=== PATIENT | male | born 1955 ===

== ENCOUNTER 2021-11-24 11:21 | Inpatient (IN) | payer MEDICARE ==
[2021-11-24] MEDS ORDERED: ASPIRIN 81 MG ONE (13:11)
[2021-11-24] MEDS ORDERED: SODIUM CHLORIDE 0.9% 1,000 ML IV ONE (13:30)
[2021-11-24] MEDS ORDERED: ASPIRIN 325 MG TAB PO STA (13:47)
[2021-11-24] MEDS ORDERED: NITROGLYCERIN SL TABS 0.4 MG TAB SUBLINGUAL PRN (13:47)
[2021-11-24 13:50] LABS: Glucose,Whole Blood 94 mg/dL (75-99)
[2021-11-24] MEDS ORDERED: hydrALAZINE HCL 20 MG/ML 1 ML VIAL IVP STA (14:03)
[2021-11-24] MEDS ORDERED: MORPHINE SULFATE 4 MG/ML SYRINGE ONE (14:06)
[2021-11-24] MEDS: MORPHINE SULFATE 2 MG/ML SYRINGE IVP PRN ×3 (14:11→22:32)
[2021-11-24] MEDS ORDERED: HEPARIN SODIUM 1,000 UN/ML (10ML VL) ONE (15:33)
[2021-11-24] MEDS ORDERED: fentaNYL (PF) 50 MCG/ML 2 ML AMP ONE (16:08)
[2021-11-24] MEDS: MIDAZOLAM 2 MG/2 ML VIAL IV ONE ×2 (16:32→16:57)
[2021-11-24] MEDS: fentaNYL (PF) 50 MCG/ML 2 ML AMP IV ONE ×2 (16:32→16:57)
[2021-11-24] MEDS: HEPARIN SODIUM 1,000 UN/ML (10ML VL) IV ONE ×3 (16:32→16:57)
[2021-11-24] MEDS ORDERED: TICAGRELOR 90 MG TAB ONE (16:37)
[2021-11-24] MEDS ORDERED: TICAGRELOR 90 MG TAB PO ONE (16:40)
[2021-11-24] MEDS: NITROGLYCERIN 1000MCG/10ML SYRINGE INTRACORON ONE ×3 (16:42→17:06)
[2021-11-24] MEDS ORDERED: IOPAMIDOL-370 125ML BTL INJ ONE (17:04)
[2021-11-24] MEDS ORDERED: IOPAMIDOL-370 100ML BTL INJ ONE (17:19)
[2021-11-24] MEDS ORDERED: RX INFO: IV CONTRAST WAS GIVEN 1 EACH MISC MISCELLANE PRN (18:48)
[2021-11-24] MEDS ORDERED: ZOLPIDEM 5 MG TAB PO PRN (18:48)
[2021-11-24] MEDS ORDERED: ATROPINE SULFATE 0.1 MG/ML 10ML SYRINGE IV PRN (18:48)
[2021-11-24] MEDS ORDERED: MAG HYDROX/AL HYDROX/SIMETH 30 ML CUP PO PRN (18:48)
[2021-11-24] MEDS ORDERED: ONDANSETRON 4 MG/2 ML VIAL IVP PRN (18:49)
[2021-11-24] MEDS: SODIUM CHLORIDE 0.9% 1,000 ML in EMPTY BAG 1 BAG IV SCH ×2 (18:50→22:11)
--- NOTE | 2021-11-24 19:02 | P.PRCINT ---
Percutaneous Coronary Int. - Percutaneous Coronary Intervention Percutaneous Coronary Intervention: PROCEDURES PERFORMED: Bilateral coronary angiography, PCI circumflex with a 2.75 x 15mm Xience RAMOS, PCI proximal RCA with 4.0 x 15mm Xience RAMOS, PCI mid to distal RCA with 4.0 x 12mm Xience RAMOS INDICATION: NSTEMI CONSENT:I have discussed the risks, benefits and alternative therapies for the above-mentioned procedure and for both sedation/analgesia as well as necessary blood product administration, if indicated, as they pertain to this patient. The patient has indicated understanding and acceptance of the risks and procedures discussed. PROCEDURE: After the risks, benefits and alternatives of the above mentioned procedure explained in detail with the patient, informed consent was obtained. Patient was taken to the catheterization lab and prepped and draped in usual fashion. 1A 6-[place] sheath had already been placed in the right femoral artery for the diagnostic procedure, see separate report. Heparin was given to maintain ACT > 250. A 6FR CLS 3.5 guide was used to engage the left main. A 0.014 BMW wire was advanced into the distal OM1. The lesion was pre dilated with a 2.0 x 12mm balloon. Next a 2.75 x 15mm Xience RAMOS was placed in the mid circumflex. The wire was removed and final angiograms were performed. Pre intervention there was a 85% circumflex stenosis and CINDA 3 flow and post intervention there was CINDA 3 flow with 0 % stenosis. Next the decision was made to perform PCI of the RCA. A 6FR AL 0.75 guide was used to engage the RCA. A 0.014 BMW wire was advanced into the distal RCA. The proximal and mid lesions were pre dilated with a 3.0 x 12mm balloon. Next a 4.0 x 12mm Xience RAMOS was placed in the mid to distal RCA. An additional 4.0 x 15mm Xience RAMOS was placed in the proximal RCA. There was more diffuse mild 20-30% proximal RCA stenosis felt best treated medically. The wire was removed and final angiograms were performed. Pre intervention there was a 80% proximal RCA and a mid to distal RCA 75% stenosis and CINDA 3 flow and post intervention there was CINDA 3 flow with 0 % stenosis. The right radial sheath was removed and a TR band was placed with hemostasis achieved. The patient tolerated the procedure well. Patient was transported back to the post catheterization holding area in stable condition. Conscious Sedation: Patient was monitored under the direct supervision of vision of myself for conscious sedation using Versed and fentanyl for a total duration of 45 minutes SELECTIVE CORONARY ARTERIOGRAPHY: LEFT MAIN: The left main is a large caliber vessel which bifurcates into the LAD and circumflex. There is no significant stenosis. LEFT ANTERIOR DESCENDING CORONARY ARTERY: LAD is a large caliber vessel which wraps around to the apex. There are mild luminal irregularities of the LAD. LEFT CIRCUMFLEX CORONARY ARTERY: Left circumflex is a moderate to large caliber vessel with mild luminal irregularities. Just before giving off a small caliber OM1 branch, the circumflex has a 85% stenosis. RIGHT CORONARY ARTERY: The right coronary artery is a large caliber vessel which gives off a PDA and PLV branch and is the dominant vessel. There is diffuse proximal RCA 20-30% stenosis then a more focal 80% proximal RCA stenosis and a mid to distal RCA 75% stenosis. Otherwise there is mild 20% RCA stenosis.. FINAL IMPRESSION: 1. CAD as described above with 85% mid circumflex stenosis and proximal RCA 80% and mid to distal RCA 75% stenosis. 2. S/p PCI circumflex with a 2.75 x 15mm Xience RAMOS, PCI proximal RCA with 4.0 x 15mm Xience RAMOS, PCI mid to distal RCA with 4.0 x 12mm Xience RAMOS PLAN: 1. Aggressive risk factor modification per most recent ACC/AHA guidelines. 2. Continue dual antiplatelets for 12 months with aspirin and Brillinta.
[2021-11-24] MEDS ORDERED: carvediloL 6.25 MG TAB PO STA (19:42)
[2021-11-24] MEDS ORDERED: TICAGRELOR 90 MG TAB PO STA (19:45)
[2021-11-24] MEDS ORDERED: GABAPENTIN 300 MG CAP PO PRN (19:47)
[2021-11-24 19:48] LABS: Glucose,Whole Blood 119 mg/dL (75-99)
[2021-11-24] MEDS ORDERED: METOPROLOL TARTRATE 50 MG TAB PO SCH (21:00)
[2021-11-24] MEDS: SODIUM CHLORIDE 0.9% 1,000 ML IV SCH (21:09)
[2021-11-24] MEDS: ATORVASTATIN 80 MG TAB PO SCH (21:10)
[2021-11-24] MEDS: INSULIN ASPART (NovoLOG) 100 UNIT/ML VIAL SQ SCH (21:10)
[2021-11-24] MEDS: HYDROcodone/APAP 5-325MG 1 EACH TAB PO PRN (22:17)
[2021-11-24] MEDS: LOSARTAN 50 MG TAB PO SCH (22:18)
[2021-11-25] MEDS: MORPHINE SULFATE 2 MG/ML SYRINGE IVP PRN ×2 (02:26→06:34)
[2021-11-25 05:44] LABS: Glucose,Whole Blood 134 mg/dL (75-99)
[2021-11-25] MEDS: carvediloL 6.25 MG TAB PO SCH ×2 (06:33→17:11)
[2021-11-25] MEDS: INSULIN ASPART (NovoLOG) 100 UNIT/ML VIAL SQ SCH ×4 (06:50→20:15)
[2021-11-25] MEDS: LOSARTAN 50 MG TAB PO SCH (07:45)
[2021-11-25] MEDS: ALPRAZolam 0.5 MG TAB PO PRN ×2 (07:47→20:21)
[2021-11-25] MEDS ORDERED: ATORVASTATIN 40 MG TAB PO SCH (09:00)
[2021-11-25] MEDS ORDERED: LOSARTAN 50 MG TAB PO SCH (09:00)
[2021-11-25 09:43] LABS: Basophils # (A) 0.1 k/uL (0-0.2); Basophils % (A) 1 %; Eosinophils # (A) 0.1 k/uL (0-0.7); Eosinophils % (A) 1 %; HCT 44.8 % (39.0-53.0); HGB 14.6 gm/dL (13.0-17.5); Lymphocytes # (A) 0.8 k/uL (1.0-4.8); Lymphocytes % (A) 7 %; MCH 28.9 pg (25.0-35.0); MCHC 32.5 g/dL (31.0-37.0); Mean Platelet Volume 7.2; Monocytes # (A) 0.7 k/uL (0-1.0); Monocytes % (A) 7 %; Neutrophils # (A) 8.9 k/uL (1.3-7.7); Neutrophils % (A) 83 %; Platelet Count 225 k/uL (150-450); RBC 5.03 m/uL (4.30-5.90); RDW 13.6 % (11.5-15.5); WBC 10.7 k/uL (3.8-10.6)
[2021-11-25 09:58] LABS: African American GFR (CKD) >90 (>60 ml/min/1.73 sqM); Anion Gap 7 mmol/L; Blood Urea Nitrogen 15 mg/dL (9-20); Calcium 8.8 mg/dL (8.4-10.2); Carbon Dioxide 22 mmol/L (22-30); Chloride 104 mmol/L (98-107); Glucose 174 mg/dL (74-99); Non-African American GFR(CKD) >90 (>60 ml/min/1.73 sqM); Sodium 133 mmol/L (137-145)
[2021-11-25 11:03] VITALS: BMI 43.2
--- NOTE | 2021-11-25 11:20 | XR ---
EXAMINATION TYPE: XR chest 1V DATE OF EXAM: 11/25/2021 COMPARISON: None INDICATION: Short of breath TECHNIQUE: Single frontal view of the chest is obtained. FINDINGS: The heart size is normal. The pulmonary vasculature is normal. No suspicious infiltrates evident. IMPRESSION: 1. No acute pulmonary process.
--- NOTE | 2021-11-25 11:22 | US ---
EXAMINATION TYPE: US lower ext pseudo artery RT DATE OF EXAM: 11/25/2021 COMPARISON: NONE CLINICAL HISTORY: rule ou retroperitoneal bleed. Heart cath x 2 days ago. Patient unable to tolerate pressure. Severe bruising at site. Patient has a femstop on. EXAM PERFORMED: Grayscale and color Doppler duplex imaging performed of the groin, post cardiac conrad ter to assess for pseudoaneurysm. SIDE PERFORMED: Right Color and Waveform Doppler performed to assess for the presence of pseudoaneurysm; Is there ultrasound evidence of a pseudoaneurysm: Possible PSA = 1.5 x 1.1 x 0.9 cm Is there a fluid collection present: Yes = 5.5 x 5.8 x 3.1 cm IMPRESSION: There is a hematoma, deep to the hematoma is small area measuring 9 x 15 mm is suspicious for pseudoa neurysm deep to the skin. CTA of the right groin may be of benefit.
[2021-11-25 11:35] LABS: Glucose,Whole Blood 155 mg/dL (75-99)
--- NOTE | 2021-11-25 13:20 | P.GSCN ---
History of Present Illness Consult date: 11/25/21 Reason for Consult: Pseudoaneurysm Requesting physician: Deandra Maciel History of present illness: This is 66-year-old male who had presented to [facility] yesterday for symptoms of shortness of breath and pressure on his chest. Past medical history includes diabetes mellitus, morbid obesity, hypertension, hyperlipidemia, heart murmur, former smoker, and lower extremity swelling. He was transferred to this facility for an STEMI and underwent cardiac catheterization with PCI and stenting. Patient was accessed through the right femoral artery. Apparently after the procedure through the night he developed a hematoma. He has pain to the right groin. His aspirin and [place] were held. He had a ultrasound of the right lower extremity to evaluate for pseudoaneurysm with findings of 9 x 15 mm pseudoaneurysm, reported as deep. Apparently interventional radiology did not believe that they could not treat with thrombin and vascular surgery was consulted. Hemoglobin stable at 14.6. Patient also mentions that he has been following with vascular surgeon Dr. Trever Meza and then Dr. Toribio for lower extremity edema. 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 He currently denies any abdominal pain or shortness of breath. He does complain of pain in the right groin. He is able to move bilateral lower extremities. Review of Systems 14 point review systems completed and all pertinent positives and negatives as stated in HPI Past Medical History Past Medical History: Diabetes Mellitus, Hyperlipidemia, Hypertension History of Any Multi-Drug Resistant Organisms: None Reported Past Surgical History: Cholecystectomy, Joint Replacement, Orthopedic Surgery Additional Past Surgical History / Comment(s): Double hip replacement Past Anesthesia/Blood Transfusion Reactions: No Reported Reaction Past Psychological History: No Psychological Hx Reported Smoking Status: Former smoker Past Alcohol Use History: None Reported Past Drug Use History: None Reported - Past Family History Father Additional Family Medical History / Comment(s): Parkinsons Mother Family Medical History: Diabetes Mellitus Medications and Allergies Home Medications Medication Instructions Recorded Confirmed Type Atorvastatin [Lipitor] 40 mg PO DAILY 11/24/21 11/24/21 History Dulaglutide [Trulicity] 0.75 mg SQ TH 11/24/21 11/24/21 History Gabapentin [Neurontin] 300 mg PO TID PRN 11/24/21 11/24/21 History Losartan Potassium 50 mg PO BID 11/24/21 11/24/21 History Metoprolol Tartrate [Lopressor] 50 mg PO BID 11/24/21 11/24/21 History Allergies Allergy/AdvReac Type Severity Reaction Status Date / Time No Known Allergies Allergy Verified 11/24/21 13:31 Surgical - Exam Vital Signs Temp Pulse Resp BP Pulse Ox 98.4 F 60 18 224/87 98 11/24/21 13:37 11/24/21 13:37 11/24/21 13:37 11/24/21 13:37 11/24/21 13:37 General appearance: The patient is alert, oriented, appears in no acute distress. Morbidly obese. HET: Head is normocephalic and atraumatic. Pupils are equal and reactive. Neck: Supple without lymphadenopathy. Trachea midline. No audible carotid bruit. Heart: S1 S2. Regular rate and rhythm. Systolic murmur. Lungs: Clear to auscultation bilaterally. Abdomen: Soft, morbidly obese, tenderness left lower quadrant, nondistended. Extremities: Normal skin color and turgor. Bilateral lower extremity edema. Right groin with hematoma and ecchymosis. Palpable bilateral dorsalis pedis pulses. Neurological: No focal deficits. Strength and sensation are grossly intact. Results - Labs 11/25/21 09:15 11/25/21 09:15 Abnormal Lab Results - Last 24 Hours (Table) 11/24/21 11/25/21 11/25/21 Range/Units 19:46 05:41 09:15 WBC 10.7 H (3.8-10.6) k/uL Neutrophils # 8.9 H (1.3-7.7) k/uL Lymphocytes # 0.8 L (1.0-4.8) k/uL Sodium (137-145) mmol/L Glucose (74-99) mg/dL POC Glucose (mg/dL) 119 H 134 H (75-99) mg/dL 11/25/21 11/25/21 Range/Units 09:15 11:33 WBC (3.8-10.6) k/uL Neutrophils # (1.3-7.7) k/uL Lymphocytes # (1.0-4.8) k/uL Sodium 133 L (137-145) mmol/L Glucose 174 H (74-99) mg/dL POC Glucose (mg/dL) 155 H (75-99) mg/dL Diabetes panel 11/25/21 Range/Units 09:15 Sodium 133 L (137-145) mmol/L Potassium 4.0 (3.5-5.1) mmol/L Chloride 104 (98-107) mmol/L Carbon Dioxide 22 (22-30) mmol/L BUN 15 (9-20) mg/dL Creatinine 0.82 (0.66-1.25) mg/dL Glucose 174 H (74-99) mg/dL Calcium 8.8 (8.4-10.2) mg/dL Calcium panel 11/25/21 Range/Units 09:15 Calcium 8.8 (8.4-10.2) mg/dL Pituitary panel 11/25/21 Range/Units 09:15 Sodium 133 L (137-145) mmol/L Potassium 4.0 (3.5-5.1) mmol/L Chloride 104 (98-107) mmol/L Carbon Dioxide 22 (22-30) mmol/L BUN 15 (9-20) mg/dL Creatinine 0.82 (0.66-1.25) mg/dL Glucose 174 H (74-99) mg/dL Calcium 8.8 (8.4-10.2) mg/dL Adrenal panel 11/25/21 Range/Units 09:15 Sodium 133 L (137-145) mmol/L Potassium 4.0 (3.5-5.1) mmol/L Chloride 104 (98-107) mmol/L Carbon Dioxide 22 (22-30) mmol/L BUN 15 (9-20) mg/dL Creatinine 0.82 (0.66-1.25) mg/dL Glucose 174 H (74-99) mg/dL Calcium 8.8 (8.4-10.2) mg/dL - Imaging Comments: Ultrasound right lower extremity pseudo artery: Hematoma, deep to the hematoma a small area 9 x 15 mm suspicious for pseudoaneurysm deep to the skin. CTA of right groin may be of benefit. Chest x-ray: report reviewed Assessment and Plan Assessment: 1. Pseudoaneurysm right femoral artery measuring 9 x 15 mm status post cardiac catheterization with recent PCI and stenting 2. NSTEMI 3. Morbid obesity 4. Diabetes mellitus 5. Hypertension 6. Hyperlipidemia 7. Former smoker Plan: 1. Hold aspirin and Brilinta 2. Apply pressure dressing to right groin 3. Repeat CBC tomorrow 4. Repeat lower extremity arterial ultrasound tomorrow 4. Further recommendations forthcoming per vascular surgeon Thank you for this consultation. The impression and plan of care has been dictated as directed. Dr. Dillon I performed a history and examination of this patient, discussed the same with the dictator. I agree with the dictator's note ,documented as a scribe. Any additional findings or plans will be noted.
[2021-11-25] MEDS: ASPIRIN 81 MG PO SCH (14:48)
[2021-11-25] MEDS: TICAGRELOR 90 MG TAB PO SCH ×2 (14:49→20:09)
--- NOTE | 2021-11-25 16:53 | P.PN ---
Subjective Progress Note Date: 11/25/21 This is a 66-year-old gentleman who was admitted to [facility] with unstable angina. Patient had a cardiac catheterization and was found to have significant 2 vessel disease. Patient had stent placement of the circumflex and also RCA by Dr. Mendenhall. Apparently last night patient started having hematoma in the right groin. Local pressure and FemoStop was applied. This morning the groin appeared to be relatively soft with underlying hematoma. Ultrasound of the groin revealed evidence of possible pseudoaneurysm. A surgical consult was obtained. At this point they recommended continued monitoring and if necessary for seizure to be done tomorrow. Requested to stop Brillinta until tomorrow and continue aspirin only. He denies any chest pain or shortness of breath but does complain of pain in the right groin. Hemoglobin is stable. Did complain of some shortness of breath but chest x-ray do not show no acute changes and his BNP is within normal limits. We'll continue to monitor vital signs. Further recommendations depend upon the clinical course Objective - Vital Signs Vital signs: Vital Signs Temp 97.9 F 11/25/21 03:14 Pulse 67 11/25/21 14:53 Resp 16 11/25/21 14:53 BP 119/71 11/25/21 14:53 Pulse Ox 97 11/25/21 14:53 FiO2 Intake & Output 11/24/21 11/25/21 11/25/21 18:59 06:59 18:59 Intake Total 500 600 Output Total 2200 900 450 Balance -1700 -900 150 Weight 148.778 kg 148.778 kg Intake: IV 500 Oral 600 Output: Urine 2200 900 450 Uretheral (Dillon) 800 Other: Voiding Method Indwelling Catheter Indwelling Catheter - Exam GENERAL EXAM: Patient is alert and oriented and doesn't appear to be in any acute distress HEENT: Normocephalic. Normal reaction of pupils, equal size, normal range of extraocular motion. No erythema or exudates in the throat. NECK: No masses, no nuchal rigidity. CHEST: No chest wall deformity. LUNGS: Equal air entry with no crackles or wheeze. HEART: S1 and S2 normal with no audible mumurs or gallops. Regular rhythm, femorals equal on both sides.. ABDOMEN: No hepatosplenomegaly, normal bowel sounds, no guarding or rigidity. SKIN: No rashes CENTRAL NERVOUS SYSTEM: No focal deficits. EXTREMITIES: No cyanosis, clubbing or edema. There is hematoma in the right groin - Labs CBC & Chem 7: 11/25/21 09:15 11/25/21 09:15 Labs: Abnormal Lab Results - Last 24 Hours (Table) 11/24/21 11/25/21 11/25/21 Range/Units 19:46 05:41 09:15 WBC 10.7 H (3.8-10.6) k/uL Neutrophils # 8.9 H (1.3-7.7) k/uL Lymphocytes # 0.8 L (1.0-4.8) k/uL Sodium (137-145) mmol/L Glucose (74-99) mg/dL POC Glucose (mg/dL) 119 H 134 H (75-99) mg/dL 11/25/21 11/25/21 Range/Units 09:15 11:33 WBC (3.8-10.6) k/uL Neutrophils # (1.3-7.7) k/uL Lymphocytes # (1.0-4.8) k/uL Sodium 133 L (137-145) mmol/L Glucose 174 H (74-99) mg/dL POC Glucose (mg/dL) 155 H (75-99) mg/dL Assessment and Plan (1) Hematoma Current Visit: Yes Status: Acute Code(s): T14.8XXA - OTHER INJURY OF UNSPECIFIED BODY REGION, INITIAL ENCOUNTER SNOMED Code(s): 867722629 (2) STEMI (ST elevation myocardial infarction) Current Visit: Yes Status: Acute Code(s): I21.3 - ST ELEVATION (STEMI) MYOCARDIAL INFARCTION OF UNSP SITE SNOMED Code(s): 85845699 (3) Pseudoaneurysm Current Visit: Yes Status: Acute Code(s): I72.9 - ANEURYSM OF UNSPECIFIED SITE SNOMED Code(s): 395831411 (4) S/P coronary artery stent placement Current Visit: Yes Status: Acute Code(s): Z95.5 - PRESENCE OF CORONARY ANGIOPLASTY IMPLANT AND GRAFT SNOMED Code(s): 061372104 Plan: Continue current medical therapy. Hold brillinta as per the request of the vascular surgical team. Continue rest of the medication.
[2021-11-25 16:58] LABS: Glucose,Whole Blood 130 mg/dL (75-99)
--- NOTE | 2021-11-25 17:40 | HP ---
HISTORY AND PHYSICAL This 66-year-old white male came to the [facility] due to shortness of breath and chest pressure. He was found to have diastolic heart failure and non-STEMI with aortic stenosis and regurgitation. He had a cardiac catheterization, transferred over to [facility], which he had today. He has possibly an aneurysm, pseudoaneurysm 9 x 15 mm, of the right lower extremity. Apparently Vascular Surgery has been consulted for this. Hemoglobin is stable. PAST MEDICAL HISTORY: CHF, diabetes, hypertension, non-STEMI, PAST SURGICAL HISTORY: Cholecystectomy, joint replacement, orthopedic surgeries. FAMILY HISTORY: Mother with diabetes mellitus. HOME MEDICINES: Home medicines include Lipitor 40 daily, Trulicity 0.75 once a week, Neurontin 300 t.i.d., losartan 50 daily, Lopressor 50 b.i.d. ALLERGIES: NO KNOWN DRUG ALLERGIES. PHYSICAL EXAMINATION: VITAL SIGNS: Pulse ox 98. Blood pressure on admission here was 220s over 80s, respiratory rate 18 to 20, temperature 98.4, pulse 60. GENERAL APPEARANCE: Overweight white male in no acute distress. Cardiovascular S1, S2. Lungs with scattered wheeze. Abdomen distended with obesity. Extremities with 2+ edema. Stasis changes in the legs. Normal dorsalis pedis, posterior tibial and radial pulses. Psych fair mood and affect. Neurologic alert and oriented x3. Labs are all reviewed. ASSESSMENT: 1. Status post heart catheterization with stenting from a [id number] myocardial infarction. 2. Acute on chronic diastolic heart failure from [id number] myocardial infarction with a pseudoaneurysm in the right femoral artery postoperatively of PCI with stenting. 3. Diabetes mellitus. 4. Hypertension. 5. Obesity. 6. Former smoker. They took him off aspirin and Brilinta, applied pressure to the right groin. Repeat CBC in the morning. Repeat an ultrasound of the aneurysm in the morning. Prognosis is guarded. Continue standard cardiac care. MMODL / IJN: [id number] /
--- NOTE | 2021-11-25 19:41 | P.PN ---
Progress Note - Text Patient seen and examined 11/25. Right femoral hematoma appears stable and pain controlled per patient. No bruit or thrill on exam. US reviewed with questionable pseudoaneurysm and appears small. Likely will seal off on it's own if truly is a pseudoaneurysm however does not appear typical of a pseudoaneurysm on ultrasound and not good area for thrombin injection. Discussed with vascular surgery regarding increased risks of stent thrombosis early after stent placement with discontinuation of antiplatelets and therefore will continue with aspirin and Brillinta. If repair needs to be performed would consider endovascular balloon tamponade or coil before open surgery if antiplatelets discontinuation considered. Continue to monitor. Corky Mendenhall, DO
[2021-11-25] MEDS: ATORVASTATIN 80 MG TAB PO SCH (20:10)
[2021-11-25] MEDS: SODIUM CHLORIDE 0.9% 1,000 ML IV SCH (20:10)
[2021-11-25 20:14] LABS: Glucose,Whole Blood 117 mg/dL (75-99)
[2021-11-25] MEDS: HYDROcodone/APAP 5-325MG 1 EACH TAB PO PRN (23:38)
[2021-11-26 06:05] LABS: Glucose,Whole Blood 125 mg/dL (75-99)
[2021-11-26] MEDS: carvediloL 6.25 MG TAB PO SCH ×2 (06:16→17:09)
[2021-11-26] MEDS: INSULIN ASPART (NovoLOG) 100 UNIT/ML VIAL SQ SCH ×4 (06:19→21:02)
[2021-11-26] MEDS: ASPIRIN 81 MG PO SCH (09:08)
[2021-11-26] MEDS: ALPRAZolam 0.25 MG TAB PO PRN ×2 (09:08→21:02)
[2021-11-26] MEDS: TICAGRELOR 90 MG TAB PO SCH ×2 (09:08→21:02)
[2021-11-26] MEDS: LOSARTAN 50 MG TAB PO SCH (09:09)
--- NOTE | 2021-11-26 10:05 | P.PN ---
Subjective Progress Note Date: 11/26/21 Principal diagnosis: Pseudoaneurysm Patient is seen and examined as a follow-up for right femoral artery pseudoaneurysm status post heart catheterization, PCI with stenting. It was recommended to hold Brilinta, however cardiology felt the [place] need to be given. Repeat arterial ultrasound ordered, however pending. CBC currently pending. Patient states he still has some groin discomfort. He denies any abdominal pain, nausea, vomiting, shortness of breath or chest pain. He's been afebrile. Objective - Vital Signs Vital signs: Vital Signs Temp 98.1 F 11/26/21 09:00 Pulse 68 11/26/21 09:00 Resp 18 11/26/21 09:00 BP 149/82 11/26/21 09:00 Pulse Ox 95 11/26/21 09:00 FiO2 Intake & Output 11/25/21 11/26/21 11/26/21 18:59 06:59 18:59 Intake Total 840 120 Output Total 450 400 650 Balance 390 -400 -530 Weight 148.778 kg Intake: Oral 840 120 Output: Urine 450 400 650 Uretheral (Dillon) 400 Other: Voiding Method Indwelling Catheter Indwelling Catheter - Exam General appearance: The patient is alert, oriented, appears in no acute distress. Morbidly obese. HET: Head is normocephalic and atraumatic. Pupils are equal and reactive. Neck: Supple without lymphadenopathy. Trachea midline. No audible carotid bruit. Heart: S1 S2. Regular rate and rhythm. Lungs: Clear to auscultation bilaterally. Abdomen: Soft, nontender, nondistended. Extremities: Normal skin color and turgor. Bilateral lower extremity edema. Palpable pedal pulses bilaterally. Right groin with pressure dressing in place. Neurological: No focal deficits. Strength and sensation are grossly intact. - Labs CBC & Chem 7: 11/25/21 09:15 11/25/21 09:15 Labs: Abnormal Lab Results - Last 24 Hours (Table) 11/25/21 11/25/21 11/25/21 Range/Units 11:33 16:56 20:12 POC Glucose (mg/dL) 155 H 130 H 117 H (75-99) mg/dL 11/26/21 Range/Units 06:04 POC Glucose (mg/dL) 125 H (75-99) mg/dL Assessment and Plan Assessment: 1. Pseudoaneurysm right femoral artery measuring 9 x 15 mm status post cardiac catheterization with recent PCI and stenting 2. NSTEMI 3. Morbid obesity 4. Diabetes mellitus 5. Hypertension 6. Hyperlipidemia 7. Former smoker Plan: 1. Recommended to hold aspirin and Brilinta until repeat ultrasound 2. Continue pressure dressing to right groin 3. Repeat CBC pending 4. Discontinue [place] catheter 5. Repeat lower extremity arterial ultrasound reported as no change in pseudoaneurysm 5. We'll continue to monitor, no plans on surgical intervention at this time. Patient is cleared for discharge from vascular surgical services. Follow-up in 1-2 weeks. 6. Patient may get up and ambulate Thank you for this consultation. The impression and plan of care has been dictated as directed. Dr. [place] I performed a history and examination of this patient, discussed the same with the dictator. I agree with the dictator's note ,documented as a scribe. Any additional findings or plans will be noted.
--- NOTE | 2021-11-26 14:42 | P.PN ---
Subjective Progress Note Date: 11/26/21 HISTORY OF PRESENT ILLNESS: This is a 66-year-old gentleman who was admitted to [facility] with unstable angina. Patient had a cardiac catheterization and was found to have significant 2 vessel disease. Patient had stent placement of the circumflex and also RCA by Dr. Mendenhall. Apparently last night patient started having hematoma in the right groin. Local pressure and FemoStop was applied. This morning the groin appeared to be relatively soft with underlying hematoma. Ultrasound of the groin revealed evidence of possible pseudoaneurysm. A surgical consult was obtained. At this point they recommended continued monitoring and if necessary for seizure to be done tomorrow. Requested to stop Brillinta until tomorrow and continue aspirin only. He denies any chest pain or shortness of breath but does complain of pain in the right groin. Hemoglobin is stable. Did complain of some shortness of breath but chest x-ray do not show no acute changes and his BNP is within normal limits. We'll continue to monitor vital signs. Further recommendations depend upon the clinical course Progress Note - Text Patient seen and examined 11/25. Right femoral hematoma appears stable and pain controlled per patient. No bruit or thrill on exam. US reviewed with questionable pseudoaneurysm and appears small. Likely will seal off on it's own if truly is a pseudoaneurysm however does not appear typical of a pseudoaneurysm on ultrasound and not good area for thrombin injection. Discussed with vascular surgery regarding increased risks of stent thrombosis early after stent placement with discontinuation of antiplatelets and therefore will continue with aspirin and Brillinta. If repair needs to be performed would consider en dovascular balloon tamponade or coil before open surgery if antiplatelets discontinuation considered. Continue to monitor. Corky Mendenhall DO 11/26/2021 Patient examined this morning at the bedside. Patient denies chest pain or pressure. He denies shortness of breath. Patient denies any further discomfort to his right groin. Vascular surgery has been consulted for evaluation. PHYSICAL EXAM: VITAL SIGNS: Reviewed. GENERAL: Well-developed in no acute distress. NECK: Supple. No JVD or thyromegaly LUNGS: Respirations even and unlabored. Lungs essentially clear to auscultation bilaterally. HEART: Regular rate and rhythm. S1 and S2 heard. EXTREMITIES: Normal range of motion. No clubbing or cyanosis. Peripheral pulses intact. No lower extremity edema ASSESSMENT: Non-STEMI, status post PCI to RCA and circumflex Pseudoaneurysm right femoral artery Hypertension Hyperlipidemia Diabetes Former nicotine dependence PLAN: Continue current cardiac medications Vascular surgery consulted and evaluated patient. No surgical intervention at this time Continue to monitor right groin Further recommendations pending patient's course Nurse practitioner note has been reviewed by physician. Signing provider agrees with the documented findings, assessment, and plan of care. Objective - Vital Signs Vital signs: Vital Signs Temp 98.1 F 11/26/21 09:00 Pulse 68 11/26/21 09:00 Resp 18 11/26/21 09:00 BP 149/82 11/26/21 09:00 Pulse Ox 95 11/26/21 09:00 FiO2 Intake & Output 11/25/21 11/26/21 11/26/21 18:59 06:59 18:59 Intake Total 840 120 Output Total 450 400 650 Balance 390 -400 -530 Weight 148.778 kg Intake: Oral 840 120 Output: Urine 450 400 650 Uretheral (Dillon) 400 Other: Voiding Method Indwelling Catheter Indwelling Catheter Toilet - Labs CBC & Chem 7: 11/25/21 09:15 11/25/21 09:15 Labs: Abnormal Lab Results - Last 24 Hours (Table) 11/25/21 11/25/21 11/25/21 Range/Units 11:33 16:56 20:12 POC Glucose (mg/dL) 155 H 130 H 117 H (75-99) mg/dL 11/26/21 Range/Units 06:04 POC Glucose (mg/dL) 125 H (75-99) mg/dL
--- NOTE | 2021-11-26 14:43 | US ---
EXAMINATION TYPE: US lower ext pseudo artery RT DATE OF EXAM: 11/26/2021 COMPARISON: NONE CLINICAL HISTORY: re-evaluate pseudoaneurysm. Post catheterization. Swelling. EXAM PERFORMED: Grayscale and color Doppler duplex imaging performed of the groin, post cardiac conrad ter to assess for pseudoaneurysm. SIDE PERFORMED: right Color and Waveform Doppler performed to assess for the presence of pseudoaneurysm; There is a hematoma sitting superior to vessels measuring 4.7 x 2.5 x 6.9cm Patient was wearing pressure bandage since previous exam. Superior area of questionable psuedo does not show flow today. Inferior to this is a possible psuedo vs stenosis in EVAPORATOR and DFV causing artifact between vessels. IMPRESSION: Area of possible pseudoaneurysm seen on prior exam the right groin is not to show flow today on color Doppler. Persistent groin hematoma.
[2021-11-26 14:52] LABS: Glucose,Whole Blood 117 mg/dL (75-99)
[2021-11-26 16:30] LABS: Glucose,Whole Blood 114 mg/dL (75-99)
[2021-11-26] MEDS: DOCUSATE 100 MG CAP PO SCH (17:09)
--- NOTE | 2021-11-26 20:20 | PN ---
PROGRESS NOTE This 66-year-old white male came in with unstable angina, status post stenting of the two arteries in the right coronary artery. He stopped his and aspirin secondary to a pseudoaneurysm, at which time tomorrow Brilinta will be restarted prior to going home. Cardiovascular S1-S2. Lungs clear. GI soft. Ultrasound shows a questionable pseudoaneurysm; appears small. Likely will on its own. Increasing risk of stent stenosis after stent placement with this continuation of antiplatelets. Continue with aspirin, Brilinta. Possible endovascular balloon tamponade if pseudoaneurysm does not resolve. Wait for vascular recommendations. He is alert and oriented x3. Vital signs reviewed. Cardiovascular S1-S2. Hematology negative Homans. Psych fair mood and affect. ASSESSMENT: 1. Status post moderate aortic stenosis. 2. Moderate aortic regurgitation. 3. Percutaneous transluminal coronary angioplasty, right coronary artery. 4. Coronary artery disease. 5. Morbid obesity. 6. Diabetes mellitus. 7. Hypertension. 8. Dyslipidemia. 9. Former smoker. Continue to hold aspirin, Brilinta. Continue pressure on the right groin. Discontinue Dillon. Repeat CBC. No plans for surgical intervention. Cleared for discharge from vascular services. Possibly will go home. MMODL / IJN: [id number] /
[2021-11-26 20:43] LABS: Glucose,Whole Blood 157 mg/dL (75-99)
[2021-11-26 21:02] LABS: HCT 40.2 % (39.0-53.0); MCH 29.2 pg (25.0-35.0); MCHC 32.4 g/dL (31.0-37.0); MCV 90.2 fL (80.0-100.0); Mean Platelet Volume 7.2; Platelet Count 222 k/uL (150-450); RBC 4.45 m/uL (4.30-5.90); RDW 14.2 % (11.5-15.5)
[2021-11-26] MEDS: ATORVASTATIN 80 MG TAB PO SCH (21:02)
[2021-11-26] MEDS: SODIUM CHLORIDE 0.9% 1,000 ML IV SCH (21:05)
[2021-11-27 00:34] VITALS: TEMP 97.9
[2021-11-27 05:41] LABS: Glucose,Whole Blood 133 mg/dL (75-99)
[2021-11-27] MEDS: carvediloL 6.25 MG TAB PO SCH (06:56)
[2021-11-27] MEDS: INSULIN ASPART (NovoLOG) 100 UNIT/ML VIAL SQ SCH (06:56)
--- NOTE | 2021-11-27 07:31 | CDI ---
Documentation Clarification Form Date: 11/26/2021 01:35:00 PM From: Louise Anand CCS, CCDS Admit Date: 11/24/2021 05:50:00 PM Patient Name: Angel Hsieh Visit Number: [id number] Discharge Date: ATTENTION: The Clinical Documentation Specialists (CDI) and [facility] Coding Staff appreciate your assistance in clarifying documentation. Please respond to the clarification below the line at the bottom and electronically sign. The CDI & [facility] Coding staff will review the response and follow-up if needed. Please note: Queries are made part of the Legal Health Record. If you have any questions, please contact the author of this message via ITS. Dr. Corky Mendenhall: The patient has a possible pseudoaneurysm and/or hematoma documented in the 11/25 Cardiology Progress Notes, status post a Heart Catheterization and PTCA with Stenting on 11/24 for a NSTEMI. Vascular Surgery was consulted on 11/25: Pseudoaneurysm right femoral artery measuring 9 x 15 mm status post cardiac catheterization with recent PCI and stenting Additional clarification is requested regarding the relationship, if any, that exists between the diagnosis of pseudoaneurysm and/or hematoma and the procedure. Patients Admitting Diagnosis Per the 11/24 PCI Note: CAD with 85% mid circumflex stenosis and proximal RCA 80% and mi to distal RCA 75% stenosis. Post-Operative Diagnosis: Same Procedure performed: Bilateral coronary angiography, PCI circumflex with a 2.75 x 15mm Xience RAMOS, PCI proximal RCA with 4.0 x 15mm Xience RAMOS, PCI mid to distal RCA with 4.0 x 12mm Xience RAMOS. History/Risk Factors per the 11/25 H/P: DM II, Hypertension, Hyperlipidemia, Obesity, Former smoker. Clinical Indicators: Presented to [facility] for PCI status post a Heart Catheterization at [facility], diagnosed with NSTEMI. Admit with same status post PCI with stenting. 11/25 Hemoglobin 14.6, Hematocrit 44.8 Treatment per Vascular Surgery Consult 11/25: Hold Aspirin & Brillinta, Apply pressure dressing to right groin, Repeat CBC tomorrow, Repeat lower extremity arterial US tomorrow. What relationship, if any, exists between the diagnosis of pseudoaneurysm and/or hematoma and the procedure: [ X ] Pseudoaneurysm an/or Hematoma is a complication of surgical procedure [ ] Pseudoaneurysm an/or Hematoma is an expected outcome of the surgical procedure [ ] Pseudoaneurysm an/or Hematoma is related to the patients co-morbid condition(s), please specify: and is not a complication of the procedure [ ] Other please specify: [ ] Unable to determine (Template Last Revised: September 2020) MTDD
[2021-11-27] MEDS: LOSARTAN 50 MG TAB PO SCH (09:15)
[2021-11-27] MEDS: DOCUSATE 100 MG CAP PO SCH (09:15)
[2021-11-27] MEDS: ASPIRIN 81 MG PO SCH (09:15)
[2021-11-27] MEDS: TICAGRELOR 90 MG TAB PO SCH (09:15)
--- NOTE | 2021-11-27 09:50 | P.PN ---
Subjective Progress Note Date: 11/27/21 HISTORY OF PRESENT ILLNESS: This is a 66-year-old gentleman who was admitted to [facility] with unstable angina. Patient had a cardiac catheterization and was found to have significant 2 vessel disease. Patient had stent placement of the circumflex and also RCA by Dr. Mendenhall. Apparently last night patient started having hematoma in the right groin. Local pressure and FemoStop was applied. This morning the groin appeared to be relatively soft with underlying hematoma. Ultrasound of the groin revealed evidence of possible pseudoaneurysm. A surgical consult was obtained. At this point they recommended continued monitoring and if necessary for seizure to be done tomorrow. Requested to stop Brillinta until tomorrow and continue aspirin only. He denies any chest pain or shortness of breath but does complain of pain in the right groin. Hemoglobin is stable. Did complain of some shortness of breath but chest x-ray do not show no acute changes and his BNP is within normal limits. We'll continue to monitor vital signs. Further recommendations depend upon the clinical course Progress Note - Text Patient seen and examined 11/25. Right femoral hematoma appears stable and pain controlled per patient. No bruit or thrill on exam. US reviewed with questionable pseudoaneurysm and appears small. Likely will seal off on it's own if truly is a pseudoaneurysm however does not appear typical of a pseudoaneurysm on ultrasound and not good area for thrombin injection. Discussed with vascular surgery regarding increased risks of stent thrombosis early after stent placement with discontinuation of antiplatelets and therefore will continue with aspirin and Brillinta. If repair needs to be performed would consider en dovascular balloon tamponade or coil before open surgery if antiplatelets discontinuation considered. Continue to monitor. Corky Mendenhall, 11/26/2021 Patient examined this morning at the bedside. Patient denies chest pain or pressure. He denies shortness of breath. Patient denies any further discomfort to his right groin. Vascular surgery has been consulted for evaluation. 11/27/2021 Patient examined this morning. Patient is sitting up in the chair. Patient denies chest pain or pressure. He denies shortness of breath. He is anxious to be discharged home today. PHYSICAL EXAM: VITAL SIGNS: Reviewed. GENERAL: Well-developed in no acute distress. NECK: Supple. No JVD or thyromegaly LUNGS: Respirations even and unlabored. Lungs essentially clear to auscultation bilaterally. HEART: Regular rate and rhythm. S1 and S2 heard. EXTREMITIES: Normal range of motion. No clubbing or cyanosis. Peripheral pulses intact. No lower extremity edema ASSESSMENT: Non-STEMI, status post PCI to RCA and circumflex Pseudoaneurysm right femoral artery Hypertension Hyperlipidemia Diabetes Former nicotine dependence PLAN: Continue current cardiac medications Patient is stable for discharge home today with outpatient follow-up Nurse practitioner note has been reviewed by physician. Signing provider agrees with the documented findings, assessment, and plan of care. Objective - Vital Signs Vital signs: Vital Signs Temp 97.9 F 11/27/21 03:34 Pulse 83 11/27/21 03:34 Resp 16 11/27/21 03:34 BP 174/68 11/27/21 03:34 Pulse Ox 95 11/27/21 03:34 FiO2 Intake & Output 11/26/21 11/27/21 11/27/21 18:59 06:59 18:59 Intake Total 900 Output Total 650 Balance 250 Intake: Oral 900 Output: Urine 650 Uretheral (Dillon) 400 Other: Voiding Method Toilet Toilet # Voids 2 2 - Labs CBC & Chem 7: 11/26/21 20:17 11/25/21 09:15 Labs: Abnormal Lab Results - Last 24 Hours (Table) 11/26/21 11/26/21 11/26/21 Range/Units 11:53 11:53 16:28 WBC (3.8-10.6) k/uL POC Glucose (mg/dL) 117 H 117 H 114 H (75-99) mg/dL 11/26/21 11/26/21 11/27/21 Range/Units 20:17 20:37 05:37 WBC 12.0 H (3.8-10.6) k/uL POC Glucose (mg/dL) 157 H 133 H (75-99) mg/dL
--- NOTE | 2021-11-27 10:37 | P.PN ---
Subjective Progress Note Date: 11/27/21 Patient seen and examined. No complaints. Ready to go home, pain is controlled Objective - Vital Signs Vital signs: Vital Signs Temp 97.9 F 11/27/21 03:34 Pulse 83 11/27/21 03:34 Resp 16 11/27/21 03:34 BP 174/68 11/27/21 03:34 Pulse Ox 95 11/27/21 03:34 FiO2 Intake & Output 11/26/21 11/27/21 11/27/21 18:59 06:59 18:59 Intake Total 900 Output Total 650 Balance 250 Intake: Oral 900 Output: Urine 650 Uretheral (Dillon) 400 Other: Voiding Method Toilet Toilet # Voids 2 2 - Exam General appearance: The patient is alert, oriented, appears in no acute distress. Morbidly obese. HET: Head is normocephalic and atraumatic. Pupils are equal and reactive. Neck: Supple without lymphadenopathy. Trachea midline. No audible carotid bruit. Heart: S1 S2. Regular rate and rhythm. Lungs: Clear to auscultation bilaterally. Abdomen: Soft, nontender, nondistended. Extremities: Normal skin color and turgor. Bilateral lower extremity edema. Palpable pedal pulses bilaterally. Right groin with pressure dressing in place. Neurological: No focal deficits. Strength and sensation are grossly intact. - Labs CBC & Chem 7: 11/26/21 20:17 11/25/21 09:15 Labs: Abnormal Lab Results - Last 24 Hours (Table) 11/26/21 11/26/21 11/26/21 Range/Units 11:53 11:53 16:28 WBC (3.8-10.6) k/uL POC Glucose (mg/dL) 117 H 117 H 114 H (75-99) mg/dL 11/26/21 11/26/21 11/27/21 Range/Units 20:17 20:37 05:37 WBC 12.0 H (3.8-10.6) k/uL POC Glucose (mg/dL) 157 H 133 H (75-99) mg/dL Assessment and Plan Assessment: 1. 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 NSTEMI 3. Morbid obesity 4. Diabetes mellitus 5. Hypertension 6. Hyperlipidemia 7. Former smoker Plan: Plan: Patient is cleared for discharge from vascular surgical services. The PSA is small in size and has potential to thrombose on its own accord. This is all discussed with the patient. He is educated that if he should have any worsening groin pain or issues to immediately present to the ER. He seemingly understands and is willing to proceed Follow-up in 1 week.
[2021-11-27 11:16] VITALS: BP 123/70; PULSE 68; RESP 18
[2021-11-27 11:59] LABS: Glucose,Whole Blood 106 mg/dL (75-99)
--- NOTE | 2021-12-02 09:48 | P.DS ---
Providers Date of admission: 11/24/21 17:50 Expected date of discharge: 11/27/21 Attending physician: Joshua Carter Consults: 11/24/21 18:48 Consult Physician Routine Consulting Provider: [facility] Consult Reason/Comments: Post Interventional patient Do you want consulting provider notified?: Already Contacted Primary care physician: Joshua Sellersinivan [facility] Course: Final diagnosis Small right STRAP BUCKLER PSA NSTEMI Status post moderate aortic stenosis Moderate aortic regurgitation Percutaneous transluminal coronary angioplasty, right coronary artery Coronary artery disease morbid obesity with a BMI of 43.3 Diabetes mellitus Hypertension Dyslipidemia Former smoker Discharge disposition Patient is being discharged in a stable condition with guarded prognosis to home. Patient will follow-up with Dr. Jimenez in the outpatient setting upon discharge. Patient is to follow-up with vascular surgery and also cardiology as scheduled. Patient will continue on a statin along with aspirin and Brilinta on discharge. Total time taken is greater than 35 minutes. Hospital course This is a 64-year-old male who was recently admitted with pseudoaneurysm and was seen and evaluated by vascular surgery for possible balloon tamponade. Patient will follow-up with vascular surgery as well as cardiology in the outpatient setting. Patient encouraged to follow-up with Dr. Carter early next week as well. Currently no reports of chest pain, shortness of breath, or palpitations. Patient is afebrile. No reports of nausea or vomiting and patient is tolerating diet. [facility]. On exam vital signs are stable. Cardio S1, S2 are muffled. Respiratory system shows diminished breath sounds at the bases with no wheezing or rhonchi noted. Abdomen is soft and obese, and nontender. Nervous system shows no focal deficits. Please refer to medication reconciliation sheet for a list of medications. The impression and plan of care has been dictated by Poonam Ivan, Nurse Practitioner as directed. Dr. Odalys MD I have performed a history and examination and MDM of this patient, discussed the same with the dictator, and agree with the dictator's assessment and plan as written ,documented as a scribe. Based on total visit time, I have performed more than 50% of the visit. Patient Condition at Discharge: Fair Plan - Discharge Summary Discharge Rx Participant: Yes New Discharge Prescriptions: New Atorvastatin [Lipitor] 80 mg PO HS #90 tab Docusate [Colace] 100 mg PO DAILY 30 Days #30 cap Aspirin 81 mg PO DAILY #90 tab Ticagrelor [Brilinta] 90 mg PO BID #180 tab carvediloL [Coreg] 6.25 mg PO BID-W/MEALS #180 tab Losartan [Cozaar] 50 mg PO DAILY #90 tab Nitroglycerin Sl Tabs [Nitrostat] 0.4 mg SUBLINGUAL Q5M PRN #100 tab PRN Reason: Chest Pain HYDROcodone/APAP 5-325MG [Ogden 5-325] 1 each PO Q4HR PRN #9 tab PRN Reason: Pain Continue Dulaglutide [Trulicity] 0.75 mg SQ TH Gabapentin [Neurontin] 300 mg PO TID PRN PRN Reason: NERVE PAIN Discontinued Losartan Potassium 50 mg PO BID Atorvastatin [Lipitor] 40 mg PO DAILY Metoprolol Tartrate [Lopressor] 50 mg PO BID Discharge Medication List Dulaglutide [Trulicity] 0.75 mg SQ TH 11/24/21 [History] Gabapentin [Neurontin] 300 mg PO TID PRN 11/24/21 [History] Aspirin 81 mg PO DAILY #90 tab 11/27/21 [Rx] Atorvastatin [Lipitor] 80 mg PO HS #90 tab 11/27/21 [Rx] Docusate [Colace] 100 mg PO DAILY 30 Days #30 cap 11/27/21 [Rx] HYDROcodone/APAP 5-325MG [Ogden 5-325] 1 each PO Q4HR PRN #9 tab 11/27/21 [Rx] Losartan [Cozaar] 50 mg PO DAILY #90 tab 11/27/21 [Rx] Nitroglycerin Sl Tabs [Nitrostat] 0.4 mg SUBLINGUAL Q5M PRN #100 tab 11/27/21 [Rx] Ticagrelor [Brilinta] 90 mg PO BID #180 tab 11/27/21 [Rx] carvediloL [Coreg] 6.25 mg PO BID-W/MEALS #180 tab 11/27/21 [Rx] Follow up Appointment(s)/Referral(s): Corky Mendenhall DO [STAFF PHYSICIAN] - 1 Week (Office will call you with appointment to follow up) Forrest Toledo DO [Doctor of Osteopathic Medicine] - 1 Week (Please call office to set up follow up appointment) Joshua Carter MD [Primary Care Provider] - 1 Week (Call when office open to schedule appointment ) Patient Instructions/Handouts: Heart Catheterization (DC), Pseudoaneurysm (GEN) Activity/Diet/Wound Care/Special Instructions: Activity Limited until follow-up Follow-up with primary care provider on discharge Follow-up with cardiology in one week as discussed Follow-up with vascular surgery in one week Continue to elevate lower extremities while at rest Continue taking medications as prescribed Discharge Disposition: HOME SELF-CARE
== END 2021-11-27 14:10 | disposition home or self-care (01) | DRG 246 ==
LOC: EDBD 17:50 → 3SCARD 17:50
PROVIDERS: ADMIT Family Medicine; ATTEND Family Medicine
PROC: B2111ZZ Fluoroscopy of Multiple Coronary Arteries using Low Osmolar Contrast (ICD-10-PCS; 2021-11-24)
PROC: 027136Z Dilation of Coronary Artery, Two Arteries with Three Drug-eluting Intraluminal Devices, Percutaneous Approach (ICD-10-PCS; principal; 2021-11-24 14:15)
PROC: 4A023N7 Measurement of Cardiac Sampling and Pressure, Left Heart, Percutaneous Approach (ICD-10-PCS; 2021-11-24 14:15)
DX: I21.4 Non-ST elevation (NSTEMI) myocardial infarction (principal); I50.33 Acute on chronic diastolic (congestive) heart failure; Z68.41 Body mass index [BMI] 40.0-44.9, adult; T81.718A Complication of other artery following a procedure, not elsewhere classified, initial encounter; I72.4 Aneurysm of artery of lower extremity; E11.9 Type 2 diabetes mellitus without complications; I10 Essential (primary) hypertension; Y83.8 Other surgical procedures as the cause of abnormal reaction of the patient, or of later complication, without mention of misadventure at the time of the procedure; I35.0 Nonrheumatic aortic (valve) stenosis; I25.110 Atherosclerotic heart disease of native coronary artery with unstable angina pectoris; I35.2 Nonrheumatic aortic (valve) stenosis with insufficiency; E66.01 Morbid (severe) obesity due to excess calories; I11.0 Hypertensive heart disease with heart failure; R01.1 Cardiac murmur, unspecified; E78.5 Hyperlipidemia, unspecified; R60.0 Localized edema; Z96.643 Presence of artificial hip joint, bilateral; Z90.49 Acquired absence of other specified parts of digestive tract; Z79.84 Long term (current) use of oral hypoglycemic drugs; Z79.899 Other long term (current) drug therapy; Z87.891 Personal history of nicotine dependence; Z83.3 Family history of diabetes mellitus; Z82.0 Family history of epilepsy and other diseases of the nervous system; I25.2 Old myocardial infarction; Z96.649 Presence of unspecified artificial hip joint
CPT/HCPCS: 71045; 80048; 83880; 85025; 85027; 93975

== ENCOUNTER → 2022-02-17 | Outpatient (CLI) | payer MEDICARE ==
[2022-02-17 18:56] LABS: ALT 20 U/L (10-49); AST 24 U/L (14-35); African American GFR (CKD) 105.8 (60.0-200.0); Albumin 4.2 g/dL (3.8-4.9); Albumin/Globulin Ratio 1.23 (1.60-3.17); Alkaline Phosphatase 104 U/L (41-126); BUN/Creat Ratio 12.53 Ratio (12.00-20.00); Blood Urea Nitrogen 10.7 mg/dL (9.0-27.0); Calcium 9.3 mg/dL (8.7-10.3); Carbon Dioxide 25.2 mmol/L (20.0-27.5); Chloride 105 mmol/L (96-109); Chol/HDL Ratio 2.76 Ratio; Globulin 3.4 g/dL (1.6-3.3); Glucose 98 mg/dL (70-110); LDL Cholesterol,Calculated 52.1 mg/dL (0.0-131.0); Non-African American GFR(CKD) 91.3 (60.0-200.0); Potassium 4.4 mmol/L (3.5-5.5); Sodium 139 mmol/L (135-145); Total Protein 7.6 g/dL (6.2-8.2); VLDL Calculation 16.66 mg/dL (5.00-40.00)
== END | disposition home or self-care (01) ==
LOC: LABWHC1 12:52
PROVIDERS: ATTEND Internal Medicine
DX: E11.40 Type 2 diabetes mellitus with diabetic neuropathy, unspecified (principal)
CPT/HCPCS: 36415; 80053; 80061; 84443

== ENCOUNTER → 2023-01-19 | Outpatient (CLI) | payer MEDICARE ==
--- NOTE | 2023-01-20 13:59 | CT ---
EXAMINATION TYPE: CT cervical spine wo con DATE OF EXAM: 01/19/2023 COMPARISON: None HISTORY: Neck pain x1mo, radiates down LT arm, no injury. CT DLP: 825.5 mGycm CONTRAST: None CT of the cervical spine is performed in the axial plane at 2 mm thick sections. Reconstructed image s in the coronal, and sagittal plane are reviewed on the computer. No acute fractures are evident. Vertebral body alignment is normal. Disc space narrowing is present C4-5, C5-6, C6-7, C7-T1. Vertebral body heights are preserved. No spinal canal stenosis is evident Uncovertebral joint hypertrophy is present on C3-4 with severe right and moderate to severe left fora nilda stenosis. Uncovertebral joint hypertrophy is severe right foraminal stenosis C4-5. There is a sclerotic area within the T1 posterior vertebral body. Sclerotic metastasis not excluded. IMPRESSIONS: 1. Degenerative disc disease to the cervical spine discussed above. 2. Uncovertebral joint hypertrophy in the upper cervical spine causing severe stenosis C3-4 C4-5 as d iscussed above. 3. Sclerotic area within the T1 vertebral body, sclerotic metastasis is not excluded.
== END | disposition home or self-care (01) ==
LOC: RADCTMAIN 17:48
PROVIDERS: ATTEND Family Medicine
DX: M50.121 Cervical disc disorder at C4-C5 level with radiculopathy (principal); M48.02 Spinal stenosis, cervical region
CPT/HCPCS: 72125

== ENCOUNTER → 2023-04-16 | Outpatient (CLI) | payer MEDICARE ==
[2023-04-16 23:41] LABS: ALT 26 U/L (10-49); AST 21 U/L (14-35); Albumin 4.2 d/dL (3.8-4.9); Albumin/Globulin Ratio 1.68 Ratio (1.60-3.17); Alkaline Phosphatase 121 U/L (41-126); BUN/Creat Ratio 10.67 Ratio (12.00-20.00); Blood Urea Nitrogen 9.6 mg/dL (9.0-27.0); Calcium 9.7 mg/dL (8.7-10.3); Carbon Dioxide 27.5 mmol/L (21.6-31.8); Chloride 102 mmol/L (96-109); Chol/HDL Ratio 2.67 Ratio; Globulin 2.5 d/dL (1.6-3.3); Glucose 111 mg/dL (70-110); LDL Cholesterol,Calculated 46.7 mg/dL (0.0-131.0); Potassium 4.6 mmol/L (3.5-5.5); Sodium 142 mmol/L (135-145); Total Bilirubin 0.7 mg/dL (0.3-1.2); Total Protein 6.7 d/dL (6.2-8.2)
== END | disposition home or self-care (01) ==
LOC: LABWHC1 10:50
PROVIDERS: ATTEND Internal Medicine
DX: E11.40 Type 2 diabetes mellitus with diabetic neuropathy, unspecified (principal); M79.10 Myalgia, unspecified site
CPT/HCPCS: 36415; 80053; 80061; 82043; 82306; 82570; 84443

== ENCOUNTER → 2023-05-04 | Outpatient (CLI) | payer MEDICARE ==
--- NOTE | 2023-05-04 11:48 | CA ---
Lexiscan Nuclear Stress Test Report Name: Angel Hsieh Exam Date: 05/04/2023 10:16 Exam Location: [place] Stress Ht (in): 73 Wt (lb): 290 BSA: 2.52 Ordering Phys: Joshua Carter MD Referring Phys: Rolanda Alex MD Technologist: Agustín Marlow Age: 68 Gender: M : 1955 Procedure CPT: Indications: R94.31 abn ekg, R07.9 chest pain ICD-10 Codes: Patient History: MULUGETA, HTN, ELEVATED CHOLESTEROL LEVELS, PRIOR SMOKER, PRIOR CATH WITH THREE STENTS Medications: TRULICITY, ATORVASTATIN, FUROSEMIDE, VITAMINS, MONTELUKAST, LOSARTAN Meds past 24 hrs: Pretest Chest Pain: STRESS TEST Lexiscan Protocol Exercise Duration (min:sec): 01:[address] Depressions (mm): Angina Score: Harris Score: Resting HR (bpm): 62 Peak HR (bpm): 82 Resting BP (mmHg): 163 / 75 Peak BP (mmHg): 163 / 75 MPHR: 153 Target HR: 130 % MPHR: 54 METS: 1.0 Total Dose: Peak Dose: Atropine: Double Product: 03964 BP Response: Stress Termination: INFUSION COMPLETE Stress Symptoms: DIFFICULTY IN BREATHING Stress Summary: ECG ANALYSIS Resting ECG: Atrial fibirllation. Nonspecific ST-T abnormality. Stress ECG: No ECG changes from baseline with Lexiscan infusion. CONCLUSIONS No ECG evidence of ischemia with Lexiscan infusion. Nuclear test results to follow. Dr. Bhaskar Vazquez MD (Electronically Signed) Final Date: 04 May 2023 11:47
--- NOTE | 2023-05-04 14:33 | NM ---
EXAMINATION TYPE: NM stress lexiscan cardiolite DATE OF EXAM: 05/04/2023 COMPARISON: NONE CLINICAL INDICATION: Male, 68 years old with history of R94.31 abn ekg, R07.9 chest pain; TECHNIQUE: After the intravenous administration of 9.7 mCi Tc 99m Sestamibi - Cardiolite resting SPE CT images acquired 80 minutes post injection. The patient received 0.4mg Lexiscan, 24 mCi Tc 99m Sestamibi - Stress images obtained 35 minutes post injection FINDINGS: Review of stress and rest SPECT images demonstrates area of stress-induced reversible ischemia involv ing the inferolateral wall. Gated analysis shows normal wall motion with an estimated left ventricul ar ejection fraction of 48 %. IMPRESSION: Exam positive for reversible ischemia inferior lateral wall. A Red level critical message alert has been initiated for Joshua Carter MD via the [employer] Critical Results System on 05/04/2023 2:31 PM. This message alert has been sent to Joshua Carter MD via the preferences provided by the clinician for the receipt of Radiology Critical Findings. Message ID [id number].
== END | disposition home or self-care (01) ==
LOC: RADNMMAIN 07:44
PROVIDERS: ATTEND Family Medicine
DX: I51.7 Cardiomegaly (principal); R94.31 Abnormal electrocardiogram [ECG] [EKG]; R07.9 Chest pain, unspecified
CPT/HCPCS: 93017; 78452; A9500

== ENCOUNTER → 2023-05-23 | Outpatient (CLI) | payer MEDICARE ==
[2023-05-23 15:29] LABS: HCT 45.8 % (39.6-50.0); HGB 15.4 g/dL (13.0-17.0); MCH 30.3 pg (27.0-32.0); MCHC 33.6 g/dL (32.0-37.0); MCV 90.2 FL (80.0-97.0); NRBC Per 100 WBC 0 X 10*3/uL (0.00-0.01); Platelet Count 204 X 10*3/uL (140-440); RBC 5.08 X 10*6/uL (4.40-5.60); RDW 12.9 % (11.5-14.5); WBC 11.14 X 10*3/uL (4.50-10.00)
[2023-05-23 15:54] LABS: Blood Urea Nitrogen 11.7 mg/dL (9.0-27.0); Carbon Dioxide 24.4 mmol/L (21.6-31.8); Chloride 105 mmol/L (96-109); Potassium 4.5 mmol/L (3.5-5.5); Sodium 140 mmol/L (135-145)
== END | disposition home or self-care (01) ==
LOC: LABPAT 11:07
PROVIDERS: ATTEND Internal Medicine Interventional Cardiology
DX: Z01.812 Encounter for preprocedural laboratory examination (principal); I25.10 Atherosclerotic heart disease of native coronary artery without angina pectoris
CPT/HCPCS: 80051; 82565; 84520; 85027

== ENCOUNTER → 2023-05-30 | Day surgery (SDC) | payer MEDICARE ==
[~2023-05-30] MED LIST: ALPRAZolam 0.25 MG TAB PO PRN; ALPRAZolam 0.5 MG TAB PO PRN; ASPIRIN 325 MG TAB PO STA; HEPARIN SODIUM 1,000 UN/ML (10ML VL) IVP ONE; HEPARIN SODIUM 1,000 UN/ML (10ML VL) ONE; IOPAMIDOL-370 200ML BTL INJ ONE; LIDOCAINE 1% INJ 10MG/ML (5 ML VIAL-PF) SQ ONE; LOSARTAN 50 MG TAB PO STA; MIDAZOLAM 2 MG/2 ML VIAL IVP ONE; NITROGLYCERIN SL TABS 0.4 MG TAB SUBLINGUAL PRN; RX INFO: IV CONTRAST WAS GIVEN 1 EACH MISC MISCELLANE PRN; SODIUM CHLORIDE 0.9% 1,000 ML IV SCH; SODIUM CHLORIDE 0.9% 1,000 ML in EMPTY BAG 1 BAG IV SCH; VERAPAMIL SYRINGE (5 MG/10 ML) INTRAARTER ONE; carvediloL 6.25 MG TAB PO STA; hydrALAZINE HCL 20 MG/ML 1 ML VIAL IVP STA
[2023-05-30 07:05] LABS: Glucose,Whole Blood 110 mg/dL (70-110)
[2023-05-30 07:26] VITALS: TEMP 97.2
--- NOTE | 2023-05-30 08:04 | P.PCN ---
Date of Procedure: 05/30/23 Operative Findings: CARDIAC CATHETERIZATION PERFORMING PHYSICIAN: Shine Mims MD, RPVI PROCEDURE PERFORMED: 1. Selective right and left coronary angiogram 2. Ultrasound-guided access of the right radial artery INDICATION: Chest discomfort and shortness of breath and 68-year-old gentleman who is known to have CAD with prior stenting of the RCA and LCx and abnormal myocardial perfusion imaging stress that showed inferolateral ischemia COMPLICATION: None APPROACH: Right radial artery LEVEL OF SEDATION: Moderate with a sedation length of 15 minutes PROCEDURE DESCRIPTION: After obtaining an informed consent, the patient was brought to cardiac laborer wood preserving plant. Local anesthesia was performed using lidocaine subcutaneously. The right radial artery was cannulated using Seldinger technique, the guidewire passed easily, following that we advanced a 5-Pashto sheath dilator assembly, the wire and dilator were removed and sheath was flushed. Following that, 2 mg of verapamil along with 5000 unit heparin were given. Selective right and left coronary angiogram using a 6-Pashto JR4 and JL 3.5 catheters. The procedure was completed there was no complication. SELECTIVE CORONARY ANGIOGRAM: The right coronary artery: Large-caliber vessel and a dominant vessel. The stent in the RCA in the midportion appears to be patent. The RCA has mild disease only Left main: Is normal. The left circumflex: Large caliber vessel nondominant vessel was mild disease only. The stent in the mid left circumflex appears to be patent The left anterior descending artery: Large caliber vessel. The LAD is normal. Gives rises into a large diagonal branch which seems to be normal as well CONCLUSION: 1. Patent stents in the RCA and LCx 2. Mild nonobstructive CAD POSTPROCEDURE MANAGEMENT: Medical treatment
[2023-05-30 09:27] VITALS: RESP 16
[2023-05-30 10:57] VITALS: BP 157/74; PULSE 64
== END ==
LOC: CATHCVL 06:07
PROVIDERS: ATTEND Internal Medicine Interventional Cardiology
DX: I25.10 Atherosclerotic heart disease of native coronary artery without angina pectoris (principal); I10 Essential (primary) hypertension; E78.5 Hyperlipidemia, unspecified; E11.9 Type 2 diabetes mellitus without complications; F17.210 Nicotine dependence, cigarettes, uncomplicated; Z79.899 Other long term (current) drug therapy; Z79.82 Long term (current) use of aspirin; Z95.5 Presence of coronary angioplasty implant and graft
CPT/HCPCS: 93454; C1769; C1894; J2250; J0360; J2001; J1644; Q9967

== ENCOUNTER 2024-03-06 08:09 | Day surgery (SDC) | payer MEDICARE ==
[2024-03-01 10:43] VITALS: BMI 38.2
[~2024-03-06 08:09] MED LIST changes: +ATORVASTATIN 80 MG TAB PO STA; -HEPARIN SODIUM 1,000 UN/ML (10ML VL) IVP ONE; -HEPARIN SODIUM 1,000 UN/ML (10ML VL) ONE; -IOPAMIDOL-370 200ML BTL INJ ONE; -LIDOCAINE 1% INJ 10MG/ML (5 ML VIAL-PF) SQ ONE; -LOSARTAN 50 MG TAB PO STA; -MIDAZOLAM 2 MG/2 ML VIAL IVP ONE; -RX INFO: IV CONTRAST WAS GIVEN 1 EACH MISC MISCELLANE PRN; -SODIUM CHLORIDE 0.9% 1,000 ML IV SCH; -SODIUM CHLORIDE 0.9% 1,000 ML in EMPTY BAG 1 BAG IV SCH; -VERAPAMIL SYRINGE (5 MG/10 ML) INTRAARTER ONE; -carvediloL 6.25 MG TAB PO STA; -hydrALAZINE HCL 20 MG/ML 1 ML VIAL IVP STA
[2024-03-06] MEDS: SODIUM CHLORIDE 0.9% 1,000 ML in EMPTY BAG 1 BAG IV SCH (08:28)
[2024-03-06 08:37] VITALS: RESP 18; TEMP 98.1
[2024-03-06] MEDS: IV FLUID CONTINUATION 1,000 ML IV ONE (08:37)
[2024-03-06 08:45] LABS: Glucose,Whole Blood 112 mg/dL (70-110)
[2024-03-06 09:05] LABS: African American GFR (CKD) >90 (>60 ml/min/1.73 sqM); Anion Gap 5 mmol/L; Blood Urea Nitrogen 15 mg/dL (9-20); Carbon Dioxide 25 mmol/L (22-30); Chloride 108 mmol/L (98-107); Glucose 117 mg/dL (74-99); Non-African American GFR(CKD) >90 (>60 ml/min/1.73 sqM); Potassium 4.3 mmol/L (3.5-5.1); Sodium 138 mmol/L (137-145)
[2024-03-06 09:18] LABS: Basophils # (A) 0.1 k/uL (0-0.2); Basophils % (A) 1 %; Eosinophils # (A) 0.4 k/uL (0-0.7); Eosinophils % (A) 3 %; HCT 45.2 % (39.0-53.0); HGB 15.6 gm/dL (13.0-17.5); Lymphocytes # (A) 1.9 k/uL (1.0-4.8); Lymphocytes % (A) 15 %; MCH 31.2 pg (25.0-35.0); MCHC 34.5 g/dL (31.0-37.0); MCV 90.3 fL (80.0-100.0); Mean Platelet Volume 7.7; Monocytes # (A) 0.8 k/uL (0-1.0); Monocytes % (A) 7 %; Neutrophils % (A) 73 %; Platelet Count 210 k/uL (150-450); RDW 13.8 % (11.5-15.5); WBC 12.3 k/uL (3.8-10.6)
[2024-03-06] MEDS ORDERED: VERAPAMIL 2.5 MG/ML 2 ML AMP ONE (10:12)
[2024-03-06] MEDS ORDERED: LIDOCAINE 1% INJ 10MG/ML (20 ML MDV) ONE (10:12)
[2024-03-06] MEDS ORDERED: HEPARIN SODIUM 1,000 UN/ML (10ML VL) ONE (10:12)
[2024-03-06] MEDS ORDERED: fentaNYL (PF) 50 MCG/ML 2 ML AMP ONE (10:28)
[2024-03-06] MEDS: SODIUM CHLORIDE 0.9% 1,000 ML IV ONE (10:42)
[2024-03-06] MEDS: BENZOCAINE SPRAY 1 CAN MUCOUS MEM ONE ×2 (11:04→11:08)
[2024-03-06] MEDS: MIDAZOLAM 2 MG/2 ML VIAL IVP ONE (11:07)
[2024-03-06] MEDS: fentaNYL (PF) 50 MCG/ML 2 ML AMP IVP ONE ×2 (11:08→11:35)
[2024-03-06] MEDS: LIDOCAINE 1% INJ 10MG/ML (20 ML MDV) SQ ONE (11:30)
[2024-03-06] MEDS: HEPARIN SODIUM 1,000 UN/ML (10ML VL) IV ONE (11:37)
[2024-03-06] MEDS: IOPAMIDOL-370 200ML BTL INJ ONE (11:43)
[2024-03-06] MEDS: HEPARIN SODIUM,PORCINE 10,000 UNIT in SODIUM CHLORIDE 0.9% 1,000 ML IRRIGATION PRN (11:43)
[2024-03-06] MEDS: HEPARIN SODIUM,PORCINE (1 ML) 2,500 UNIT in SODIUM CHLORIDE 0.9% 250 ML IRRIGATION PRN (11:44)
[2024-03-06] MEDS ORDERED: RX INFO: IV CONTRAST WAS GIVEN 1 EACH MISC MISCELLANE PRN (11:45)
[2024-03-06] MEDS ORDERED: SODIUM CHLORIDE 0.9% 1,000 ML IV SCH (11:45)
--- NOTE | 2024-03-06 11:47 | P.PCN ---
Date of Procedure: 03/06/24 Operative Findings: TRANSESOPHAGEAL ECHOCARDIOGRAM DELIVERY TECH: JORJE WILLAMS MD, RPVI INDICATION: Aortic stenosis SEDATION: Conscious sedation COMPLICATION: None LEVEL OF SEDATION Moderate with sedation length of 12 minutes PROCEDURE DESCRIPTION: After obtaining an informed consent, the patient was brought to transesophageal echocardiogram room. Pulse oximetry and heart monitors were attached to the patient. The patient throat was sprayed using lidocaine. The patient was turned into left lateral position. After that a bite guard was placed. After an appropriate conscious sedation was initiated, the transesophageal echocardiogram was advanced through a bite guard into the mid esophagus. A 2-D echocardiogram images, color Doppler images, continuous wave images, pulse-wave images, of various cardiac structure were performed. After that the transesophageal echocardiogram probe was advanced into the stomach and fixed to obtain transgastric view was. The probe was brought into the mid esophagus. Inter-atrial septum was interrogated using 2D images, color Doppler images, and then contrast study. After that transesophageal echocardiogram was withdrawn out and upon withdrawing the descending thoracic aorta all the way up to the arch was evaluated. CONCLUSION: 1. Normal biventricular systolic function 2. Probably trileaflet aortic valve with evidence of severe aortic stenosis and mean gradient of 53 mmHg and peak of 88 mmHg 3. Mild to moderate mitral regurgitation 4. Normal tricuspid valve and pulmonic valve 5. Intact left atrial appendage 6. Intact interatrial septum
--- NOTE | 2024-03-06 11:49 | P.PCN ---
Date of Procedure: 03/06/24 Operative Findings: CARDIAC CATHETERIZATION PERFORMING PHYSICIAN: Shine Mims MD, RPVI PROCEDURE PERFORMED: 1. Selective right and left coronary angiogram 2. Ultrasound-guided access of the right radial artery INDICATION: Valvular heart disease COMPLICATION: None APPROACH: Right radial artery LEVEL OF SEDATION: Moderate with a sedation length of 20 minutes PROCEDURE DESCRIPTION: After obtaining an informed consent, the patient was brought to cardiac director of cath lab. Local anesthesia was performed using lidocaine subcutaneously. The right radial artery was cannulated using Seldinger technique, the guidewire passed easily, following that we advanced a 5-Nigerian sheath dilator assembly, the wire and dilator were removed and sheath was flushed. Following that, 2 mg of verapamil along with 5000 unit heparin were given. Selective right and left coronary angiogram using a 6-Nigerian JR4 and JL 3.5 catheters. The procedure was completed there was no complication. SELECTIVE CORONARY ANGIOGRAM: The right coronary artery: Large-caliber vessel and a dominant vessel with mild to moderate disease with no high-grade stenosis identified Left main: Is angiographically normal The left circumflex: Large-caliber vessel nondominant vessel with no high-grade stenosis was identified The left anterior descending artery: Large-caliber vessel with mild to moderate disease only CONCLUSION: 1. Patent stents in the RCA and LCx 2. No evidence of high-grade stenosis identified POSTPROCEDURE MANAGEMENT: Evaluate the patient for aortic valve replacement
--- NOTE | 2024-03-06 14:25 | US ---
EXAMINATION TYPE: US carotid duplex BILAT DATE OF EXAM: 03/06/2024 COMPARISON: NONE CLINICAL INDICATION: Male, 68 years old with history of preop cardiac surgery; Open heart TECHNIQUE: Carotid duplex ultrasound examination. Indirect Doppler criteria was utilized. FINDINGS: EXAM MEASUREMENTS: RIGHT: Peak Systolic Velocity (PSV) cm/sec ----- Right CCA: 77.3 ----- Right ICA: 55.2 ----- Right ECA: 92.9 ICA/CCA ratio: 0.7 RIGHT: End Diastole cm/sec ----- Right CCA: 11.7 ----- Right ICA: 9.1 ----- Right ECA: 2.6 LEFT: Peak Systolic Velocity (PSV) cm/sec ----- Left CCA: 66.3 ----- Left ICA: 78 ----- Left ECA: 81.9 ICA/CCA ratio: 1.2 LEFT: End Diastole cm/sec ----- Left CCA: 0 ----- Left ICA: 17.5 ----- Left ECA: 0 VERTEBRALS (direction of flow): Right Vertebral: Antegrade Left Vertebral: Antegrade Rhythm: Normal YEAST DISTILLER NOTES: No significant stenosis seen IMPRESSION: Less than 50% stenosis of bilateral carotid bifurcations. Criteria for Assigning % of Stenosis / Diameter reduction (Estimation based on the indirect measurements of the internal carotid artery velocities (ICA PSV). 1. Normal (no stenosis)=ICA PSV < 125 cm/s: ratio < 2.0: ICA EDV<40 cm/s. 2. Less than 50% stenosis=ICA PSV < 125 cm/s: ratio < 2.0: ICA EDV<40 cm/s. 3. 50 to 69% stenosis=ICA PSV of 125 to 230 cm/s: ration 2.0 ? 4.0: ICA EDV 40-100 cm/s. 4. Greater than 70% stenosis to near occlusion= ICA PSV > 230 cm/s: ratio > 4.0: ICA EDV > 100 cm/s. 5. Near occlusion= ICA PSV velocities may be low or undetectable: variable ratio and ICA EDV. 6. Total occlusion=unable to detect flow.
--- NOTE | 2024-03-06 14:59 | XR ---
EXAMINATION TYPE: XR chest 1V portable DATE OF EXAM: 03/06/2024 2:54 PM CLINICAL INDICATION: Male, 68 years old with history of preop open heart; PHH COMPARISON: Chest radiographs from 11/25/2021 TECHNIQUE: XR chest 1V portable Frontal view of the chest. FINDINGS: Lungs/Pleura: There is no evidence of pleural effusion, focal consolidation, or pneumothorax. Pulmonary vascularity: Unremarkable. Heart/mediastinum: Cardiomediastinal silhouette is prominent in size. Musculoskeletal: No acute osseous pathology. IMPRESSION: No acute cardiopulmonary disease/process.
[2024-03-06 17:10] VITALS: BP 138/74; PULSE 64
[2024-03-07 00:15] LABS: Hepatitis A Antibody IgM Nonreactive (Nonreactive); Hepatitis B Core IgM Nonreactive (Nonreactive); Hepatitis B Surface Antigen Nonreactive (Nonreactive); Hepatitis C IgG Antibody Nonreactive (Nonreactive)
[2024-03-07 00:26] LABS: Chol/HDL Ratio 2.73 Ratio; LDL Cholesterol,Calculated 58.4 mg/dL (0.0-131.0)
== END 2024-03-06 17:12 | disposition home or self-care (01) ==
LOC: CATHCVL 08:09
PROVIDERS: ATTEND Internal Medicine Interventional Cardiology
DX: I35.0 Nonrheumatic aortic (valve) stenosis (principal); I08.0 Rheumatic disorders of both mitral and aortic valves; Z95.5 Presence of coronary angioplasty implant and graft; I10 Essential (primary) hypertension; E78.5 Hyperlipidemia, unspecified; E11.9 Type 2 diabetes mellitus without complications; I25.10 Atherosclerotic heart disease of native coronary artery without angina pectoris
CPT/HCPCS: 71045; 80048; 80061; 80074; 83036; 84443; 85025; 87070; 93312; 93320; 93325; 93454; 93880

== ENCOUNTER → 2024-03-21 | Outpatient (CLI) | payer MEDICARE ==
--- NOTE | 2024-03-21 09:32 | P.PN ---
Progress Note - Text Progress Note Date: 03/21/24 5 meter walk test completed without difficulty: #1 3.41 sec #2 3.43 sec #3 3.15 sec CFS 2
[2024-03-21 10:14] LABS: Partial Thromboplastin Time 27.9 sec (22.0-30.0); Prothrombin Time 10.9 sec (10.0-12.5)
--- NOTE | 2024-03-21 12:01 | US ---
EXAMINATION TYPE: US vein mapping BILAT DATE OF EXAM: 03/21/2024 11:32 AM COMPARISON: NONE CLINICAL INDICATION: Male, 69 years old with history of OPEN HEART; OPEN HEART SIDE PERFORMED: Bilateral TECHNIQUE: Lower extremity saphenous vein is examined and measured utilizing real time linear array sonography. Patient History: Smoker: PRIOR Heart Disease: Y Previous DVT: N Vascular Surgery: N Discoloration: N Hypertension: N Diabetes: Y Paralysis: N Varicosities: N Edema: Y DUPLEX FINDINGS: Greater Saphenous: Color flow seen Measurements in mm: Right Greater Saphenous: Groin: 4x4 mm High Thigh: 4x3 mm Mid Thigh: 3x3 mm Above Knee: 3x4 mm Knee: 3x4 mm Below Knee: 3x3 mm Mid Calf: 3x3 mm At Ankle: 3x3 mm Left Greater Saphenous: Groin: 4x4 mm High Thigh: 3x3 mm Mid Thigh: 2x3 mm Above Knee: 2x2 mm Knee: 1x2 mm Below Knee: non-vis Mid Calf: 3x3 mm At Ankle: 3x3 mm IMPRESSION: 1. Bilateral GSV measurements listed above. 2. Performing surgeon to determine viability as conduit. [facility], , 03/21/2024 11:58 AM
--- NOTE | 2024-03-21 12:14 | CT ---
EXAMINATION TYPE: CT chest wo con CT DLP: 679.7 mGycm, Automated exposure control for dose reduction was used. DATE OF EXAM: 03/21/2024 11:58 AM COMPARISON: None CLINICAL INDICATION:Male, 69 years old with history of I35.0 NONRHEUMATIC AORTIC (VALVE) STENOSIS; PH H, pre-op open heart TECHNIQUE: Multiple axial images were obtained through the chest without IV contrast. Lack of IV or o ral contrast limits evaluation of solid and hollow organ viscera. . Coronal and sagittal reformats re viewed. FINDINGS: LUNGS/ PLEURA: The lung parenchyma appears unremarkable. AIRWAY: Patent and unremarkable.. HEART: Size within normal limits. No pericardial effusion. Moderate aortic valvular calcifications. S mall coronary calcifications. MEDIASTINUM: No gross evidence of adenopathy. VASCULATURE: No aortic aneurysm. MUSCULOSKELETAL: No acute osseous abnormalities. Mild bilateral shoulder arthropathy. DISH of the tho racic spine. SOFT TISSUES/LYMPH NODES: Unremarkable. LOWER NECK: No significant findings. UPPER ABDOMEN: Post cholecystectomy changes. IMPRESSION: 1. No acute thoracic process. 2. Moderate aortic valvular calcifications. [facility], , 03/21/2024 12:11 PM
--- NOTE | 2024-03-21 12:22 | US ---
EXAMINATION TYPE: US arterial LE single level DATE OF EXAM: 03/21/2024 10:50 AM CLINICAL INDICATION: Male, 69 years old with history of OPEN HEART; open heart History of: Smoker: prior Hypertension: Y Diabetic: Y Hyperlipidemia: Y TIA/CVA: N Previous Vascular Surgery: N CAD: N SC: N Vascular Ulcers: N Claudication: N Gangrene: N Doppler Waveforms: Right: Multiphasic Left: Multiphasic Right Brachial Pressure: 141 Left Brachial Pressure: 156 Ankle-Brachial Indices: Right: 1.2 Left: 1.1 (Vessel hardening > 1.4; Normal 0.9 - 1.4, Moderate 0.7 - 0.9, Severe 0.5-0.7) NORMAL Toe Brachial Indices: Right: 0.77 Left: 0.89 IMPRESSION: Ankle brachial indices within normal limits. [facility], , 03/21/2024 12:20 PM
[2024-03-21 15:34] LABS: ALT 16 U/L (10-49); AST 13 U/L (14-35); Albumin 4.3 g/dL (3.8-4.9); Albumin/Globulin Ratio 1.65 Ratio (1.60-3.17); Alkaline Phosphatase 104 U/L (41-126); BUN/Creat Ratio 15.11 Ratio (12.00-20.00); Blood Urea Nitrogen 13.6 mg/dL (9.0-27.0); Calcium 9.7 mg/dL (8.7-10.3); Carbon Dioxide 27.7 mmol/L (21.6-31.8); Chloride 106 mmol/L (96-109); Globulin 2.6 g/dL (1.6-3.3); Glucose 137 mg/dL (70-110); Sodium 143 mmol/L (135-145); Total Bilirubin 0.4 mg/dL (0.3-1.2); Total Protein 6.9 g/dL (6.2-8.2)
[2024-03-21 15:41] LABS: Appearance,Urine Cloudy (Clear); Bilirubin,Urine Negative (Negative); Blood,Urine Negative (Negative); Color,Urine Yellow (Yellow); HGB 15.2 g/dL (13.0-17.0); Ketones,Urine Negative (Negative); MCH 30.8 pg (27.0-32.0); MCHC 33.8 g/dL (32.0-37.0); MCV 91.1 FL (80.0-97.0); NRBC Per 100 WBC 0 X 10*3/uL (0.00-0.01); Nitrite,Urine Negative (Negative); Platelet Count 211 X 10*3/uL (140-440); RBC 4.94 X 10*6/uL (4.40-5.60); RDW 13.6 % (11.5-14.5); Specific Gravity,Urine 1.017 (1.001-1.030); WBC 11.37 X 10*3/uL (4.50-10.00)
[2024-03-21 15:45] LABS: Bacteria,Urine None Seen (None Seen)
== END | disposition home or self-care (01) ==
LOC: LABWHC1 08:56
PROVIDERS: ATTEND Thoracic Surgery (Cardiothoracic Vascular Surgery)
DX: I35.0 Nonrheumatic aortic (valve) stenosis (principal)
CPT/HCPCS: 36415; 71250; 80053; 81001; 83735; 85027; 85610; 85730; 86850; 86900; 86901; 86920; 87086; 93922; 93970

== ENCOUNTER 2024-03-28 08:00 | Inpatient (IN) | payer MEDICARE ==
[2024-03-30] MEDS: ASPIRIN 325 MG TAB PO ONE (06:00)
[2024-03-30] MEDS: ATORVASTATIN 10 MG TAB PO ONE (06:00)
[2024-03-30] MEDS: METOPROLOL TARTRATE 12.5 MG TAB PO ONE (06:01)
[2024-03-30 06:33] LABS: Glucose,Whole Blood 141 mg/dL (70-110)
[2024-03-30] MEDS: IV FLUID CONTINUATION 1,000 ML IV ONE (06:42)
[2024-03-30] MEDS: LACTATED RINGERS 1,000 ML IV ONE (06:51)
[2024-03-30] MEDS ORDERED: MIDAZOLAM HCL 10 MG/10 ML VIAL ONE (07:39)
[2024-03-30] MEDS ORDERED: fentaNYL (PF) 50 MCG/ML 50 ML VIAL ONE (07:39)
[2024-03-30] MEDS ORDERED: PROTAMINE SULFATE 10 MG/ML 25 ML VIAL IV ONE (07:39)
[2024-03-30] MEDS ORDERED: PROPOFOL 10 MG/ML 20 ML VIAL IV ONE (07:39)
[2024-03-30] MEDS ORDERED: VECURONIUM 10 MG VIAL IV ONE (07:39)
[2024-03-30] MEDS ORDERED: TRANEXAMIC 1,000 MG/100ML-NACL PREMIX BAG ONE (07:39)
[2024-03-30] MEDS ORDERED: ALBUMIN HUMAN 5% (25gm) 500 ML VIAL IVPB ONE (07:39)
[2024-03-30] MEDS ORDERED: PHENYLEPHRINE 10 MG/ML VIAL ONE (07:39)
[2024-03-30 08:35] LABS: ABG Base Excess -1.4 mmol/L; ABG Glucose Whole Blood 118 mg/dL (75-99); ABG HCO3 25 mmol/L (21-25); ABG Hematocrit 38 % (34.0-46.0); ABG Ionized Calcium 4.7 mg/dL (4.5-5.3); ABG Lactic Acid Whole Blood 1.4 mmol/L (0.5-1.6); ABG Oxygen Saturation >99.4 % (94-97); ABG PCO2 47 mmHg (35-45); ABG PH 7.33 (7.35-7.45); ABG PO2 395 mmHg (83-108); ABG Potassium Whole Blood 4.1 mmol/L (3.4-4.5); ABG Sodium Whole Blood 142 mmol/L (135-146)
[2024-03-30] MEDS: SODIUM CHLORIDE 0.9% 500 ML 500 ML with HEPARIN SODIUM,PORCINE (1 ML) 5,000 UNIT IV ONE (09:09)
[2024-03-30] MEDS: ceFAZolin 1,000 MG in SODIUM CHLORIDE 0.9% 1,000 ML IRRIGATION ONE (09:09)
[2024-03-30 09:17] LABS: ABG Base Excess -1.6 mmol/L; ABG Glucose Whole Blood 114 mg/dL (75-99); ABG HCO3 24 mmol/L (21-25); ABG Hematocrit 34 % (34.0-46.0); ABG Ionized Calcium 4.5 mg/dL (4.5-5.3); ABG Lactic Acid Whole Blood 1.2 mmol/L (0.5-1.6); ABG Oxygen Saturation >99.4 % (94-97); ABG PCO2 45 mmHg (35-45); ABG PH 7.34 (7.35-7.45); ABG Potassium Whole Blood 4.1 mmol/L (3.4-4.5); ABG Sodium Whole Blood 141 mmol/L (135-146)
[2024-03-30 09:48] LABS: ABG Glucose Whole Blood 113 mg/dL (75-99); ABG HCO3 24 mmol/L (21-25); ABG Ionized Calcium 4.3 mg/dL (4.5-5.3); ABG Lactic Acid Whole Blood 1.3 mmol/L (0.5-1.6); ABG Oxygen Saturation 99.4 % (94-97); ABG PCO2 44 mmHg (35-45); ABG PH 7.34 (7.35-7.45); ABG Potassium Whole Blood 4.8 mmol/L (3.4-4.5); ABG Sodium Whole Blood 140 mmol/L (135-146); ABG TCO2 23 mmol/L (19-24)
[2024-03-30 10:10] LABS: ABG Base Excess -2.2 mmol/L; ABG Glucose Whole Blood 125 mg/dL (75-99); ABG HCO3 24 mmol/L (21-25); ABG Hematocrit 28 % (34.0-46.0); ABG Ionized Calcium 4.4 mg/dL (4.5-5.3); ABG Lactic Acid Whole Blood 1.1 mmol/L (0.5-1.6); ABG Oxygen Saturation 99.3 % (94-97); ABG PCO2 47 mmHg (35-45); ABG PH 7.32 (7.35-7.45); ABG PO2 374 mmHg (83-108); ABG Potassium Whole Blood 4.8 mmol/L (3.4-4.5); ABG Sodium Whole Blood 142 mmol/L (135-146); ABG TCO2 23 mmol/L (19-24)
[2024-03-30 11:19] LABS: ABG PO2 >420 mmHg (83-108)
[2024-03-30 11:20] LABS: ABG Hematocrit 24 % (34.0-46.0); ABG PO2 >420 mmHg (83-108)
[2024-03-30] MEDS ORDERED: ONDANSETRON 4 MG/2 ML VIAL IVP PRN (12:13)
[2024-03-30] MEDS ORDERED: AMIODARONE 360 MG in DEXTROSE 5% IN WATER 200 ML IV PRN (12:13)
[2024-03-30] MEDS ORDERED: DEXTROSE 50% SYRINGE 50 ML IVP PRN ×2 (12:13)
[2024-03-30] MEDS ORDERED: DEXTROSE 5% IN WATER 100 ML with AMIODARONE 150 MG IV PRN (12:13)
[2024-03-30] MEDS ORDERED: CALCIUM GLUCONATE IN NACL 2 GM in SALINE 1 100ML.BAG IVPB PRN (12:13)
[2024-03-30] MEDS ORDERED: Magnesium Replacement Protocol 1 EACH MISC MISCELLANE PRN (12:13)
[2024-03-30] MEDS ORDERED: Potassium Replacement Protocol 1 EACH MISC MISCELLANE PRN (12:13)
[2024-03-30] MEDS ORDERED: ALBUMIN HUMAN 5% 250 ML in EMPTY BAG 1 BAG IVPB PRN (12:13)
--- NOTE | 2024-03-30 12:13 | P.ANPRN ---
Procedure Note - Anesthesia - Invasive Line Left Arterial Line Time Out Performed: Yes Date of Procedure: 03/30/24 Time of Procedure: 07:20 Location of Patient: PreOp Preparation: Sterile Prep, Sterile Dressing Arterial Line Location: Radial Ultrasound Used: Yes Purpose - Visualization and Identification of Vasculature: Yes Needle Guage: 20 Image Stored and Saved: Yes Narrative: Left radial arterial line w/ u/s guidance placed by SRNA Right Central Line Time Out Performed: Yes Date of Procedure: 03/30/24 Time of Procedure: 07:30 Location of Patient: PreOp Preparation: Sterile Prep, Sterile Dressing Central Line Location: Internal Jugular Ultrasound Used: Yes Purpose - Visualization and Identification of Vasculature: Yes Needle Guage: 18 Image Stored and Saved: Yes Narrative: Invasive line placement per sterile protocol utilized w/ u/s guidance using Seldinger technique Right [place] Karen Time Out Performed: Yes Date of Procedure: 03/30/24 Time of Procedure: 07:45 Location of Patient: PreOp Preparation: Sterile Prep, Sterile Dressing [place] Karen Line Location: Internal Jugular Ultrasound Used: No Narrative: SWAN had all ports flushed and balloon tested. Advanced until RV and then PA waveforms obtained. Secured at 47 cm. Good position on GAMA
--- NOTE | 2024-03-30 12:18 | P.ANPRN ---
Procedure Note - Anesthesia - GAMA Intraop Pre Bypass GAMA Intraop - Anesthesia Indication: Date of Procedure: 03/30/24 Pre-operative Diagnosis: Aortic stenosis Post-operative Diagnosis: same Surgeon: Forrest Vora Ejection Fraction: Normal Regional Wall Motion Abnormalities: None Left Ventricle Hypertrophy: Yes R. Ventricle Function: Normal Anatomy: Trileaflet Aortic Stenosis: Severe (Peak 99 mmHg, Mean 58 mmHg) Aortic Regurgitation: Trace Mitral Stenosis: None Mitral Regurgitation: Trace Tricuspid Stenosis: None Tricuspid Regurgitation: Trace Pulmonic Stenosis: None Pulmonic Regurgitation: None R. Atrial Dilation: No R. Atrial PFO: No L. Atrial Dilation: No Aortic Dissection: No Aortic Calcification: Mobile (calcium in arch) Plural Effusion: None - GAMA Intraop Post Bypass GAMA Intraop Post Bypass Procedure Performed: AVR and LA appendage ligation Ejection Fraction: Normal Regional Wall Motion Abnormalities: None R. Ventricle Function: Normal Aortic Valve: Peak 15 mmHg, Mean 7 mmHg. No perivalvular leak Mitral Valve: Mild to moderate MR Tricuspid: Unchanged Pulmonic: Unchanged Aortic Dissection: No
--- NOTE | 2024-03-30 12:27 | P.OP ---
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 Was not 100% clear whether this was bicuspid or tricuspid but given the patient's young age and large body habitus surgical aortic valve was indicated as the first procedure. Operative Findings: Aortic valve was tricuspid and heavily calcific with significant annular calcification. Peak gradient across the aortic valve on GAMA was 99 mmHg. Post valve replacement mean gradient was 9 and peak gradient was 17. Ventricular function was good with severe left ventricular hypertrophy and significant diastolic dysfunction. Description of Procedure: Patient was brought to the operating room and placed supine on the operating table. General anesthesia was induced. Monitoring lines have been placed in the preop holding area. The anterior torso and bilateral lower extremities were sterilely prepped and draped. GAMA probe was placed and GAMA was performed by anesthesia. After timeout, a midline sternotomy was performed. The left pleural space was opened widely. A small rent was made in the right pleural space. Standard sternal retractor was placed. The pericardium was opened in the midline. The heart was exposed with pericardial sutures. Patient was heparinized and cannulated for cardiopulmonary bypass with an 8 mm soft flow cannula in the distal ascending aorta and a two-stage venous cannula through the right atrium into the inferior vena cava. Antegrade and retrograde cardioplegia lines were placed in standard fashion. Patient was placed on cardiopulmonary bypass and stabilized. 35 mm AtriCure clip was applied to the base of the left atrial appendage. Pursestring suture was placed in the right superior pulmonary vein. Aorta was crossclamped and the heart was arrested with cold crystalloid antegrade cardioplegia followed by retrograde cardioplegia. Left atrial vent was placed through the pursestring in the right superior pulmonary vein. Aorta was opened transversely and the aortic valve was exposed. Aortic valve was excised and the annulus decalcified. Copious irrigation was performed. Circumferential valve sutures were placed. The annulus was sized and a 27 mm sizer easily fit. A 27 mm Burris Inspiris Resilia valve was opened and brought up on the field. Valve sutures were placed through the sewing ring of the valve and the valve was seated in a supra annular fashion. Sutures were tied and cut and the valve was noted to seat well. Further irrigation was performed and then the aorta was closed with a 2 layer running closure of 4-0 Prolene suture. This was reinforced with some CoSeal. Left atrial vent was removed and the pursestring suture tied. This was reinforced with a 4 oh pledgeted Prolene suture. Atrial and ventricular pacing wires were placed and the patient was initially AV paced and subsequently atrially paced. He was in sinus bradycardia. Patient was weaned from cardiopulmonary bypass without the use of inotropic support. He was decannulated in standard fashion. Protamine was used to reverse heparin. Good hemostasis was assured throughout. The 2 aortic cannulation sites were reinforced with 4 oh pledgeted sutures. Mediastinum was irrigated with warm antibiotic solution. The left pleural space was drained with a 32 Maltese chest tube. The mediastinum was drained with 236 Maltese chest tubes. The chest was closed with 4 sternal wires and then 3 plates were applied, of the plate on the lower manubrium and 2 large box plates on the sternal body. Fascia was closed with 0 Ethibond suture. We further irrigated and then closed subcutaneous and subcuticular layers with layers of Vicryl suture. Skin glue and dry sterile dressings were applied. The patient was transferred to ICU in stable condition. No blood transfusions were required.
[2024-03-30] MEDS: IPRATROPIUM-ALBUTEROL 3 ML NEB INHALATION SCH ×2 (12:41→20:20)
[2024-03-30 12:51] LABS: Glucose,Whole Blood 134 mg/dL (70-110)
[2024-03-30 12:58] LABS: ABG Base Excess -2.7 mmol/L; ABG HCO3 25 mmol/L (21-25); ABG Oxygen Saturation 98.1 % (94-97); ABG PCO2 53 mmHg (35-45); ABG PH 7.28 (7.35-7.45); ABG PO2 115 mmHg (83-108); ABG TCO2 26 mmol/L (19-24)
[2024-03-30 13:00] LABS: Allen Test Performed? no
[2024-03-30] MEDS: INSULIN REGULAR 100 UNIT in SODIUM CHLORIDE 0.9% 100 ML IV SCH (13:00)
[2024-03-30 13:21] LABS: Ionized Calcium 4.5 mg/dL (4.5-5.3)
[2024-03-30] MEDS: CLEVIDIPINE BUTYRATE 25 MG in EMPTY BAG 1 BAG IV SCH (13:22)
[2024-03-30] MEDS: SODIUM CHLORIDE 0.9% 1,000 ML IV SCH (13:23)
--- NOTE | 2024-03-30 13:32 | XR ---
EXAMINATION TYPE: XR chest 1V portable DATE OF EXAM: 03/30/2024 COMPARISON: 03/06/2024 INDICATION: Postop cardiac surgery TECHNIQUE: Single frontal view of the chest is obtained. FINDINGS: The heart size is prominent. The pulmonary vasculature is normal. No suspicious bone consolidation. Endotracheal tube tip is above the fabienne. Mediastinal tube is present. Nasogastric tube tip is in th e left upper quadrant of the abdomen. Epicardial leads are present. Point [place]-Karen catheter tip is in the region of the main pulmonary artery. Left-sided chest tube is present. No pneumothorax evident IMPRESSION: 1. No acute pulmonary process. 2. Multiple lines and catheters discussed above [facility], , 03/30/2024 1:30 PM
[2024-03-30 13:39] LABS: ALT 12 U/L (4-49); AST 31 U/L (17-59); African American GFR (CKD) >90 (>60 ml/min/1.73 sqM); Albumin 3.6 g/dL (3.5-5.0); Alkaline Phosphatase 54 U/L (38-126); Anion Gap 4 mmol/L; Basophils # (A) 0.1 k/uL (0-0.2); Basophils % (A) 0 %; Blood Urea Nitrogen 12 mg/dL (9-20); Calcium 8.1 mg/dL (8.4-10.2); Carbon Dioxide 23 mmol/L (22-30); Chloride 113 mmol/L (98-107); Eosinophils # (A) 0.2 k/uL (0-0.7); Eosinophils % (A) 1 %; Glucose 123 mg/dL (74-99); HCT 34.5 % (39.0-53.0); Lymphocytes # (A) 1.4 k/uL (1.0-4.8); Lymphocytes % (A) 11 %; MCH 31.4 pg (25.0-35.0); MCHC 34.1 g/dL (31.0-37.0); MCV 92.1 fL (80.0-100.0); Magnesium 3.2 mg/dL (1.6-2.3); Mean Platelet Volume 7.8; Monocytes # (A) 0.8 k/uL (0-1.0); Monocytes % (A) 6 %; Neutrophils % (A) 82 %; Non-African American GFR(CKD) >90 (>60 ml/min/1.73 sqM); Platelet Count 129 k/uL (150-450); Potassium 4.4 mmol/L (3.5-5.1); RBC 3.75 m/uL (4.30-5.90); RDW 14.2 % (11.5-15.5); Sodium 140 mmol/L (137-145); Total Protein 5.6 g/dL (6.3-8.2); WBC 13.5 k/uL (3.8-10.6)
[2024-03-30 13:41] LABS: INR 1.1 (<1.2); Partial Thromboplastin Time 33.2 sec (22.0-30.0); Prothrombin Time 11.8 sec (10.0-12.5)
[2024-03-30 14:04] LABS: HGB 11.8 gm/dL (13.0-17.5)
[2024-03-30] MEDS: AMIODARONE 450 MG in DEXTROSE 5% IN WATER 250 ML IV PRN (14:20)
[2024-03-30] MEDS: ACETAMINOPHEN IV (For NPO) 1,000 MG in EMPTY BAG 1 BAG IVPB SCH (14:51)
--- NOTE | 2024-03-30 15:06 | P.CRDCN ---
History of Present Illness Consult date: 03/30/24 History of present illness: History of Present Illness: The patient is a 69-year-old male who was admitted today and underwent aortic valve replacement. He is intubated and sedated. He is followed on a regular basis with Dr. Mims and underwent cardiac catheterization on 06 March that revealed patent stents of the RCA and left circumflex. During the same admissio n he underwent a GAMA that showed a mean gradient 53 mmHg with a peak of 88 with normal ventricle systolic function and tricuspid aortic valve. He underwent a placement of a 27 mm Inspiris Resilia bovine pericardial valve with occlusion of the left atrial appendage. He is in sinus mechanism on no vasopressors, hemodynamically stable. Postsurgical intervention is mean gradient was 9 mmHg. His urine output is good. His coronaries factors are positive for hypertension, diabetes, hyperlipidemia Medications: Cozaar 100 mg daily, Coreg 6.5 mg twice a day, Brilinta, Lasix, Trulicity, Lipitor 80 mg daily, aspirin once a day Review of Systems: Could not be obtained, intubated Physical Examination: 69-year-old male, intubated and sedated,Blood pressure 152/50, Heart rate 65 Head: Normocephalic. Eyes: Sclerae nonicteric. Neck: Good carotid upstroke, no bruit, no jugular venous distention. Golden-Karen catheter in place Lungs: Clear to auscultation. Heart: Regular rate and rhythm, S1-S2, no S3, no rub. No murmur. Abdomen: Soft nontender, no organomegaly. Extremities: No edema, intact distal pulses. Labs: Hemoglobin 11.8, white blood cell 13.5, BUN 12, creatinine 0.79. EKG: Pending Impression: 1. Status post aortic valve replacement for severe aortic stenosis 2. History of CAD and stenting, patent 3. History of hypertension 4. History of hyperlipidemia 5. History of diabetes Plan: 1. Continue present therapy 2. Hopefully wean and extubate soon 3. Reinitiate treatment with statin and beta-polly 4. Follow blood pressure and add Cozaar as tolerated 5. Depending on his progress further recommendations will be made, thank you for this consult we will follow with you. Past Medical History Past Medical History: Diabetes Mellitus, Hyperlipidemia, Hypertension Additional Past Medical History / Comment(s): NSTEMI 2021, aortic valve regurgitation/murmur, PVD, bilateral leg edema, bilateral tinnitis. some SOB w/exertion @times Last Myocardial Infarction Date:: 2021 History of Any Multi-Drug Resistant Organisms: None Reported Past Surgical History: Cholecystectomy, Heart Catheterization With Stent, Joint Replacement, Orthopedic Surgery Additional Past Surgical History / Comment(s): Double hip replacement Past Anesthesia/Blood Transfusion Reactions: No Reported Reaction Date of Last Stent Placement:: 2021 Smoking Status: Former smoker - Past Family History Father Additional Family Medical History / Comment(s): Parkinsons Mother Family Medical History: Diabetes Mellitus, Thyroid Disorder Medications and Allergies Home Medications Medication Instructions Recorded Confirmed Type Dulaglutide [Trulicity] 3 mg SQ TH 11/24/21 03/21/24 History Atorvastatin [Lipitor] 80 mg PO HS #90 tab 11/27/21 03/21/24 Rx carvediloL [Coreg] 6.25 mg PO BID-W/MEALS #180 tab 11/27/21 03/21/24 Rx Aspirin 81 mg PO QAM 05/23/23 03/21/24 History Furosemide [Lasix] 40 mg PO QAM 05/23/23 03/21/24 History Losartan [Cozaar] 100 mg PO QAM 05/23/23 03/29/24 History Montelukast [Singulair] 10 mg PO HS 05/23/23 03/21/24 History Ascorbic Acid [Vitamin C] 1,000 mg PO DAILY 03/01/24 03/21/24 History Cetirizine HCl [Zyrtec] 10 mg PO DAILY 03/01/24 03/21/24 History Cholecalciferol [Vitamin D3 (25 25 mcg PO DAILY 03/01/24 03/21/24 History Mcg = 1000 Iu)] Vitamin E (Dl,Tocopheryl Acet) 450 mg PO DAILY 03/01/24 03/21/24 History [Vitamin E (100 Iu = 45MG)] Lutein 40 mg PO DAILY 03/21/24 03/21/24 History Ticagrelor [Brilinta] 90 mg PO BID 03/21/24 03/21/24 History Turmeric Root Extract [Turmeric] 1,950 mg PO DAILY 03/21/24 03/21/24 History Allergies Allergy/AdvReac Type Severity Reaction Status Date / Time No Known Allergies Allergy Verified 03/30/24 05:58 Physical Exam Vitals: Vital Signs Temp Pulse Pulse Resp BP BP BP 03/30/24 14:52 66 03/30/24 14:50 03/30/24 14:00 64 22 122/57 03/30/24 13:45 65 0 L 116/60 03/30/24 13:30 62 13 113/57 03/30/24 13:15 61 94/79 03/30/24 13:06 03/30/24 13:05 03/30/24 13:00 61 12 94/79 03/30/24 12:50 61 12 03/30/24 12:40 68 12 03/30/24 12:33 67 12 03/30/24 12:32 03/30/24 12:23 03/30/24 06:46 97.6 F 66 16 154/68 178/76 Pulse Ox FiO2 03/30/24 14:52 03/30/24 14:50 60 03/30/24 14:00 96 03/30/24 13:45 97 03/30/24 13:30 100 03/30/24 13:15 100 03/30/24 13:06 80 03/30/24 13:05 80 03/30/24 13:00 100 100 03/30/24 12:50 100 03/30/24 12:40 100 03/30/24 12:33 03/30/24 12:32 100 03/30/24 12:23 100 03/30/24 06:46 97 Intake and Output 03/30/24 03/30/24 03/30/24 06:59 14:59 22:59 Intake Total 100 154.365 Output Total 925 Balance 100 -770.635 Intake: IV 100 91 CO/CI 30 Pressure Bags 9 Sodium Chloride 0.9% 1, 50 000 ml @ 50 mls/hr IV . Q20H [facility] Rx#:[id number] Intake, IV Titration 63.365 Amount Clevidipine Butyrate 25 29.301 mg In Empty Bag 1 bag @ 1 MG/HR 2 mls/hr IV .Q24H [facility] Rx#:[id number] Insulin Regular 100 unit 2.449 In Sodium Chloride 0.9% 100 ml @ Per Protocol IV .Q0M [facility] Rx#:[id number] propofoL 1,000 mg In 31.615 Empty Bag 1 bag @ Titrate IV .Q0M [facility] Rx#: [id number] Output: Chest Tube Drainage 70 Left Pleural/Mediastinal 30 Mediastinal 40 Urine 355 Estimated Blood Loss 500 Other: Voiding Method Indwelling Catheter Weight 140.2 kg ABP, PAP, CO, CI - Last 8 Hours Arterial Blood Pressure 141/45 Arterial Blood Pressure 147/51 Arterial Blood Pressure 161/61 Arterial Blood Pressure 144/52 Arterial Blood Pressure 116/48 Arterial Blood Pressure 271/259 Arterial Blood Pressure 128/48 Pulmonary Artery Pressure 36/17 Pulmonary Artery Pressure 44/24 Pulmonary Artery Pressure 36/19 Pulmonary Artery Pressure 45/22 Pulmonary Artery Pressure 46/26 Pulmonary Artery Pressure 41/22 Pulmonary Artery Pressure 47/22 Cardiac Output 6 Cardiac Output 7.8 Cardiac Index 2.3 Cardiac Index 3 Results 03/30/24 12:47 03/30/24 12:47 Cardiac Enzymes 03/30/24 Range/Units 12:47 AST 31 (17-59) U/L Coagulation 03/30/24 Range/Units 12:47 PT 11.8 (10.0-12.5) sec APTT 33.2 H (22.0-30.0) sec CBC 03/30/24 Range/Units 12:47 WBC 13.5 H (3.8-10.6) k/uL RBC 3.75 L (4.30-5.90) m/uL Hgb 11.8 L D (13.0-17.5) gm/dL Hct 34.5 L (39.0-53.0) % Plt Count 129 L (150-450) k/uL Comprehensive Metabolic Panel 03/30/24 Range/Units 12:47 Sodium 140 (137-145) mmol/L Potassium 4.4 (3.5-5.1) mmol/L Chloride 113 H (98-107) mmol/L Carbon Dioxide 23 (22-30) mmol/L BUN 12 (9-20) mg/dL Creatinine 0.79 (0.66-1.25) mg/dL Glucose 123 H (74-99) mg/dL Calcium 8.1 L (8.4-10.2) mg/dL AST 31 (17-59) U/L ALT 12 (4-49) U/L Alkaline Phosphatase 54 (38-126) U/L Total Protein 5.6 L (6.3-8.2) g/dL Albumin 3.6 (3.5-5.0) g/dL Current Medications Generic Name Dose Route Start Last Admin Trade Name Freq PRN Reason Stop Dose Admin Acetaminophen 650 mg 03/31/24 13:00 Acetaminophen Tab 325 Mg Tab PO Q4HR PRN Fever And/ Or Mild Pain (1-3) Albuterol/Ipratropium 3 ml 03/30/24 12:13 Ipratropium-Albuterol 3 Ml Neb INHALATION RT-Q2H PRN Shortness Of Breath Or Wheezing Albuterol/Ipratropium 3 ml 03/30/24 12:13 03/30/24 14:51 Ipratropium-Albuterol 3 Ml Neb INHALATION 03/30/24 18:14 3 ml RT-Q4H [facility] Administration Albuterol/Ipratropium 3 ml 03/30/24 20:00 Ipratropium-Albuterol 3 Ml Neb INHALATION RT-QID [facility] Amiodarone HCl 200 mg 03/31/24 09:00 Amiodarone 200 Mg Tab PO BID [facility] Ascorbic Acid 1,000 mg 03/31/24 09:00 Ascorbic Acid 500 Mg Tab PO DAILY [facility] Aspirin 325 mg 03/31/24 09:00 Aspirin 325 Mg Tab PO DAILY [facility] Atorvastatin Calcium 80 mg 03/30/24 21:00 Atorvastatin 80 Mg Tab PO HS [facility] Benzocaine/Menthol 1 each 03/30/24 12:13 Benzocaine/Menthol Lozeng 1 Each Lozenge MUCOUS MEM Q2H PRN Sore Throat Bisacodyl 10 mg 03/31/24 09:00 Bisacodyl 10 Mg Supp RECTAL DAILY PRN Constipation Carvedilol 6.25 mg 03/31/24 07:30 Carvedilol 6.25 Mg Tab PO BID-W/MEALS [facility] Cholecalciferol 25 mcg 03/31/24 09:00 Cholecalciferol 25 Mcg (1000 Iu) Tablet PO DAILY [facility] Clopidogrel Bisulfate 75 mg 03/31/24 09:00 Clopidogrel 75 Mg Tab PO DAILY [facility] Dextrose/Water 25 ml 03/30/24 12:13 Dextrose 50% Syringe 50 Ml IVP PER PROTOCOL PRN Hypoglycemia Protocol Dextrose/Water 50 ml 03/30/24 12:13 Dextrose 50% Syringe 50 Ml IVP PER PROTOCOL PRN Hypoglycemia Protocol Heparin Sodium (Porcine) 5,000 unit 03/30/24 16:00 Heparin Sodium,Porcine 5,000 Unit/Ml 1 Ml Vial SQ Q8HR [facility] Hydralazine HCl 10 mg 03/30/24 12:13 Hydralazine Hcl 20 Mg/Ml 1 Ml Vial IVP Q1H PRN Blood Pressure - High Clevidipine 25 mg/ IV Solution 50 mls @ 2 mls/hr 03/30/24 12:13 03/30/24 14:51 IV 0 mg/hr .Q24H [facility] 0 mls/hr Titration Protocol 1 MG/HR Amiodarone HCl 150 mg/ 103 mls @ 618 mls/hr 03/30/24 12:13 Dextrose/Water IV .Q10M PRN A.FIB/FLUTTER Protocol Amiodarone HCl 450 mg/ 250 mls @ 16.667 mls/hr 03/30/24 12:13 03/30/24 14:20 Dextrose/Water IV 0.5 mg/min .Q15H PRN 16.667 mls/hr A.FIB/FLUTTER Administration Protocol 0.5 MG/MIN Albumin Human 250 ml/ IV 250 mls @ 250 mls/hr 03/30/24 12:13 Solution IVPB 04/01/24 12:12 Q1HR PRN For Volume Protocol Propofol 1,000 mg/ IV Solution 100 mls @ 0 mls/hr 03/30/24 12:13 03/30/24 14:21 IV 30 mcg/kg/min .Q0M [facility] 25.236 mls/hr Administration Protocol Titrate Dexmedetomidine HCl 400 mcg/ 100 mls @ 0 mls/hr 03/30/24 12:13 IV Solution IV 03/31/24 12:14 .Q0M [facility] Protocol Titrate Acetaminophen 1,000 mg/ IV 100 mls @ 400 mls/hr 03/30/24 12:13 03/30/24 14:51 Solution IVPB 03/31/24 06:14 400 mls/hr Q6HR [facility] Administration Cefazolin Sodium 3 gm/ Sodium 100 mls @ 100 mls/hr 03/30/24 16:00 Chloride IVPB 03/31/24 08:59 Q8HR [facility] Protocol Calcium Gluconate/Sodium 100 mls @ 100 mls/hr 03/30/24 12:13 Chloride 2 gm/ IV Solution IVPB 04/02/24 12:12 ONCE PRN Ionized Calcium less than 4.4 Insulin Human Regular 100 unit 101 mls @ 0 mls/hr 03/30/24 12:13 03/30/24 14: 37 / Sodium Chloride IV 1 units/hr .Q0M [facility] 1.01 mls/hr Titration Protocol Per Protocol Sodium Chloride 1,000 mls @ 50 mls/hr 03/30/24 12:13 03/30/24 13:23 Saline 0.9% IV 50 mls/hr .Q20H [facility] Administration Loratadine 10 mg 03/31/24 09:00 Loratadine 10 Mg Tab PO DAILY [facility] Magnesium Hydroxide 2,400 mg 03/31/24 09:00 Magnesium Hydroxide 2,400 Mg/30 Ml Cup PO BID PRN Constipation Metoclopramide HCl 10 mg 03/30/24 12:13 Metoclopramide 5 Mg/Ml 2 Ml Vial IVP Q4H PRN Nausea And Vomiting Miscellaneous Information 1 each 03/30/24 12:13 Potassium Replacement Protocol 1 Each Misc MISCELLANE DAILY PRN Per Protocol Protocol Miscellaneous Information 1 each 03/30/24 12:13 Magnesium Replacement Protocol 1 Each Misc MISCELLANE DAILY PRN Per Protocol Protocol Montelukast Sodium 10 mg 03/30/24 21:00 Montelukast 10 Mg Tab PO HS [facility] Ondansetron HCl 4 mg 03/30/24 12:13 Ondansetron 4 Mg/2 Ml Vial IVP Q6HR PRN Nausea And Vomiting Oxycodone HCl 5 mg 03/30/24 12:13 Oxycodone Hcl 5 Mg Tab PO Q4HR PRN Moderate Pain (Scale 4 to 6) Oxycodone HCl 10 mg 03/30/24 12:13 Oxycodone Hcl 5 Mg Tab PO Q4HR PRN Severe Pain (Scale 7 to 10) Pantoprazole Sodium 40 mg 03/31/24 09:00 Pantoprazole 40 Mg/10 Ml Vial IVP DAILY [facility] Senna/Docusate Sodium 2 each 03/30/24 21:00 Sennosides-Docusate Sodium 1 Each Tab PO HS [facility] Sodium Chloride 10 ml 03/30/24 21:00 Sodium Chloride 0.9% Flush 10 Ml Syringe IV BID [facility] Vitamin E 400 unit 03/31/24 09:00 Vitamin E (Dl,Tocopheryl Acet) 400 Unit (180 Mg) Cap PO DAILY [facility] Intake and Output 03/30/24 03/30/24 03/30/24 06:59 14:59 22:59 Intake Total 100 154.365 Output Total 925 Balance 100 -770.635 Intake: IV 100 91 CO/CI 30 Pressure Bags 9 Sodium Chloride 0.9% 1, 50 000 ml @ 50 mls/hr IV . Q20H [facility] Rx#:[id number] Intake, IV Titration 63.365 Amount Clevidipine Butyrate 25 29.301 mg In Empty Bag 1 bag @ 1 MG/HR 2 mls/hr IV .Q24H [facility] Rx#:[id number] Insulin Regular 100 unit 2.449 In Sodium Chloride 0.9% 100 ml @ Per Protocol IV .Q0M [facility] Rx#:[id number] propofoL 1,000 mg In 31.615 Empty Bag 1 bag @ Titrate IV .Q0M [facility] Rx#: [id number] Output: Chest Tube Drainage 70 Left Pleural/Mediastinal 30 Mediastinal 40 Urine 355 Estimated Blood Loss 500 Other: Voiding Method Indwelling Catheter Weight 140.2 kg 03/30/24 12:47 03/30/24 12:47
[2024-03-30 15:21] LABS: Glucose,Whole Blood 145 mg/dL (70-110)
--- NOTE | 2024-03-30 15:46 | P.CNPUL ---
History of Present Illness Consult date: 03/30/24 Chief complaint: Aortic valve stenosis History of present illness: 69-year-old male patient, currently being seen in the intensive care and [facility] an aortic valve replacement surgery. The patient underwent an AVR postop, the patient was brought into the intensive care unit for further evaluation and treatment. The patient also is known to have coronary artery disease. The patient underwent cardiac catheterization on 03/06/2024 and the patient had patent stents to RCA and circumflex. Previous GAMA showed a preserved LV function with severe aortic valve stenosis and based on that the patient underwent a surgical valve replacement. Surgery was done and estimated blood loss was 500 cc. At this point in time, the patient is intubated on the mechanical ventilator. The patient is on propofol which is running at 25 mcg/kg/min. The patient is getting a normal sinus rhythm at a rate of 65. Intraoperatively, the patient was atrially paced and currently he has intrinsic rhythm. He is hypertensive on Cleviprex drip for blood pressure control which is running at 8 mg an hour. Most recent cardiac output is 6.2 with an index of 2.4. PA pressures of 37/70. CVP is 10. The patient remains on assist-control mode of mechanical vent at rate of 12, tidal volume of 550, FiO2 of 100% with a PEEP of 10. The blood gas showed a pH of 7.28 with a pCO2 of 53 and pO2 of 115 and a chest x-ray showed adequate expansion of both lungs. No evidence of any pneumothorax. The patient has a left pleural mediastinal chest tube in place. Orotracheal tube is in a good location. No consolidation. No airspace disease. Eastover-Karen catheter is i n a good location. Output from the chest tubes has been 100 from the left pleural and 70 from the mediastinal chest tube since arrival from the operating room. Excellent urine output for now. Remains on amiodarone 0.5 mg/min as maintenance. Afebrile. Review of Systems ROS unobtainable: due to endotracheal tube Past Medical History Past Medical History: Coronary Artery Disease (CAD), Diabetes Mellitus, Hyperlipidemia, Hypertension Additional Past Medical History / Comment(s): NSTEMI 2021, aortic valve regurgitation/murmur, PVD, bilateral leg edema, bilateral tinnitis. some SOB w/exertion @times Last Myocardial Infarction Date:: 2021 History of Any Multi-Drug Resistant Organisms: None Reported Past Surgical History: Cholecystectomy, Heart Catheterization With Stent, Joint Replacement, Orthopedic Surgery Additional Past Surgical History / Comment(s): Double hip replacement Past Anesthesia/Blood Transfusion Reactions: No Reported Reaction Date of Last Stent Placement:: 2021 Smoking Status: Former smoker - Past Family History Father Additional Family Medical History / Comment(s): Parkinsons Mother Family Medical History: Diabetes Mellitus, Thyroid Disorder Medications and Allergies Home Medications Medication Instructions Recorded Confirmed Type Dulaglutide [Trulicity] 3 mg SQ TH 11/24/21 03/21/24 History Atorvastatin [Lipitor] 80 mg PO HS #90 tab 11/27/21 03/21/24 Rx carvediloL [Coreg] 6.25 mg PO BID-W/MEALS #180 tab 11/27/21 03/21/24 Rx Aspirin 81 mg PO QAM 05/23/23 03/21/24 History Furosemide [Lasix] 40 mg PO QAM 05/23/23 03/21/24 History Losartan [Cozaar] 100 mg PO QAM 05/23/23 03/29/24 History Montelukast [Singulair] 10 mg PO HS 05/23/23 03/21/24 History Ascorbic Acid [Vitamin C] 1,000 mg PO DAILY 03/01/24 03/21/24 History Cetirizine HCl [Zyrtec] 10 mg PO DAILY 03/01/24 03/21/24 History Cholecalciferol [Vitamin D3 (25 25 mcg PO DAILY 03/01/24 03/21/24 History Mcg = 1000 Iu)] Vitamin E (Dl,Tocopheryl Acet) 450 mg PO DAILY 03/01/24 03/21/24 History [Vitamin E (100 Iu = 45MG)] Lutein 40 mg PO DAILY 03/21/24 03/21/24 History Ticagrelor [Brilinta] 90 mg PO BID 03/21/24 03/21/24 History Turmeric Root Extract [Turmeric] 1,950 mg PO DAILY 03/21/24 03/21/24 History Allergies Allergy/AdvReac Type Severity Reaction Status Date / Time No Known Allergies Allergy Verified 03/30/24 05:58 Physical Exam Vitals: Vital Signs Temp Pulse Pulse Resp BP BP BP 03/30/24 15:35 03/30/24 15:01 65 03/30/24 15:00 65 22 03/30/24 14:52 66 03/30/24 14:50 03/30/24 14:45 63 22 03/30/24 14:30 62 19 03/30/24 14:15 64 22 03/30/24 14:00 64 22 122/57 03/30/24 13:45 65 0 L 116/60 03/30/24 13:30 62 13 113/57 03/30/24 13:15 61 94/79 03/30/24 13:06 03/30/24 13:05 03/30/24 13:00 61 12 94/79 03/30/24 12:50 61 12 03/30/24 12:40 68 12 03/30/24 12:33 67 12 03/30/24 12:32 03/30/24 12:23 03/30/24 06:46 97.6 F 66 16 154/68 178/76 Pulse Ox FiO2 03/30/24 15:35 50 03/30/24 15:01 03/30/24 15:00 98 03/30/24 14:52 03/30/24 14:50 60 03/30/24 14:45 98 03/30/24 14:30 97 03/30/24 14:15 96 03/30/24 14:00 96 03/30/24 13:45 97 03/30/24 13:30 100 03/30/24 13:15 100 03/30/24 13:06 80 03/30/24 13:05 80 03/30/24 13:00 100 100 03/30/24 12:50 100 03/30/24 12:40 100 03/30/24 12:33 03/30/24 12:32 100 03/30/24 12:23 100 03/30/24 06:46 97 Intake and Output 03/30/24 03/30/24 03/30/24 06:59 14:59 22:59 Intake Total 100 154.365 193.666 Output Total 925 80 Balance 100 -770.635 113.666 Intake: IV 100 91 159 ACETAMINOPHEN IV (For NPO 100 ) 1,000 mg In Empty Bag 1 bag @ 400 mls/hr IVPB Q6HR [facility] Rx#:[id number] CO/CI 30 Pressure Bags 9 9 Sodium Chloride 0.9% 1, 50 50 000 ml @ 50 mls/hr IV . Q20H [facility] Rx#:[id number] Intake, IV Titration 63.365 34.666 Amount Clevidipine Butyrate 25 29.301 2.467 mg In Empty Bag 1 bag @ 1 MG/HR 2 mls/hr IV .Q24H [facility] Rx#:[id number] Insulin Regular 100 unit 2.449 0.724 In Sodium Chloride 0.9% 100 ml @ Per Protocol IV .Q0M [facility] Rx#:[id number] propofoL 1,000 mg In 31.615 31.475 Empty Bag 1 bag @ Titrate IV .Q0M [facility] Rx#: [id number] Output: Chest Tube Drainage 70 40 Left Pleural/Mediastinal 30 10 Mediastinal 40 30 Urine 355 40 Estimated Blood Loss 500 Other: Voiding Method Indwelling Catheter Weight 140.2 kg ABP, PAP, CO, CI - Last 8 Hours Arterial Blood Pressure 152/53 Arterial Blood Pressure 145/47 Arterial Blood Pressure 104/45 Arterial Blood Pressure 135/43 Arterial Blood Pressure 141/45 Arterial Blood Pressure 147/51 Arterial Blood Pressure 161/61 Arterial Blood Pressure 144/52 Arterial Blood Pressure 116/48 Arterial Blood Pressure 271/259 Arterial Blood Pressure 128/48 Pulmonary Artery Pressure 38/18 Pulmonary Artery Pressure 36/18 Pulmonary Artery Pressure 35/13 Pulmonary Artery Pressure 34/16 Pulmonary Artery Pressure 36/17 Pulmonary Artery Pressure 44/24 Pulmonary Artery Pressure 36/19 Pulmonary Artery Pressure 45/22 Pulmonary Artery Pressure 46/26 Pulmonary Artery Pressure 41/22 Pulmonary Artery Pressure 47/22 Cardiac Output 6 Cardiac Output 7.8 Cardiac Index 2.3 Cardiac Index 3 General Appearance the patient is calm and comfortable, no acute distress. Intubated on mechanical ventilator. Orogastric and orotracheal tube are both in place. Head exam was generally normal. There was no scleral icterus or corneal arcus. Mucous membranes were moist. Neck was supple and without jugular venous distension, thyromegaly, or carotid bruits. Carotids were easily palpable bilaterally. There was no adenopathy. The patient has a right IJ Eastover-Karen catheter in place. Lung sounds are diminished bilaterally. The surgical wound site is dry clean and intact and the patient has a left pleural and mediastinal chest tube in place. Cardiac exam revealed the PMI to be normally situated and sized. The rhythm was regular and no extrasystoles were noted during several minutes of auscultation. The first and second heart sounds were normal and physiologic splitting of the second heart sound was noted. There were no murmurs, rubs, clicks, or gallops. Abdominal exam revealed normal bowel sounds. The abdomen was soft, non-tender, and without masses, organomegaly, or appreciable enlargement of the abdominal aorta. Examination of the extremities revealed easily palpable radial, femoral and pedal pulses. There was no cyanosis, clubbing or edema. Examination of the skin revealed no evidence of significant rashes, suspicious appearing nevi or other concerning lesions. Neurologically the patient is sedated, calm and comfortable, no focal neurological deficits. Results - Laboratory Findings CBC and BMP: 03/30/24 12:47 03/30/24 12:47 ABG WBC 13.5 k/uL (3.8-10.6) H 03/30/24 12:47 RBC 3.75 m/uL (4.30-5.90) L 03/30/24 12:47 Hgb 11.8 gm/dL (13.0-17.5) L D 03/30/24 12:47 Hct 34.5 % (39.0-53.0) L 03/30/24 12:47 MCV 92.1 fL (80.0-100.0) 03/30/24 12:47 MCH 31.4 pg (25.0-35.0) 03/30/24 12:47 MCHC 34.1 g/dL (31.0-37.0) 03/30/24 12:47 RDW 14.2 % (11.5-15.5) 03/30/24 12:47 Plt Count 129 k/uL (150-450) L 03/30/24 12:47 MPV 7.8 03/30/24 12:47 Neutrophils % 82 % 03/30/24 12:47 Lymphocytes % 11 % 03/30/24 12:47 Monocytes % 6 % 03/30/24 12:47 Eosinophils % 1 % 03/30/24 12:47 Basophils % 0 % 03/30/24 12:47 Neutrophils # 11.0 k/uL (1.3-7.7) H 03/30/24 12:47 Lymphocytes # 1.4 k/uL (1.0-4.8) 03/30/24 12:47 Monocytes # 0.8 k/uL (0-1.0) 03/30/24 12:47 Eosinophils # 0.2 k/uL (0-0.7) 03/30/24 12:47 Basophils # 0.1 k/uL (0-0.2) 03/30/24 12:47 PT 11.8 sec (10.0-12.5) 03/30/24 12:47 INR 1.1 (<1.2) 03/30/24 12:47 APTT 33.2 sec (22.0-30.0) H 03/30/24 12:47 Sample Site miranda 03/30/24 12:54 ABG pH 7.28 (7.35-7.45) L 03/30/24 12:54 ABG pH (Temp Correct) Cancelled 03/30/24 11:50 ABG pCO2 53 mmHg (35-45) H 03/30/24 12:54 ABG pCO2 (Temp Corrct Cancelled 03/30/24 11:50 ABG pO2 115 mmHg (83-108) H 03/30/24 12:54 ABG pO2 (Temp Correct Cancelled 03/30/24 11:50 ABG HCO3 25 mmol/L (21-25) 03/30/24 12:54 ABG Total CO2 26 mmol/L (19-24) H 03/30/24 12:54 ABG O2 Saturation 98.1 % (94-97) H 03/30/24 12:54 ABG Base Excess -2.7 mmol/L 03/30/24 12:54 ABG Hematocrit Cancelled 03/30/24 11:50 William Test no 03/30/24 12:54 ABG Sodium Cancelled 03/30/24 11:50 ABG Potassium Cancelled 03/30/24 11:50 ABG Ionized Calcium Cancelled 03/30/24 11:50 ABG Glucose Cancelled 03/30/24 11:50 ABG Lactic Acid Cancelled 03/30/24 11:50 Hemoglobin 11.6 gm/dL (13.0-17.5) L 03/30/24 12:54 FiO2 100 % 03/30/24 12:54 Sodium 140 mmol/L (137-145) 03/30/24 12:47 Potassium 4.4 mmol/L (3.5-5.1) 03/30/24 12:47 Chloride 113 mmol/L (98-107) H 03/30/24 12:47 Carbon Dioxide 23 mmol/L (22-30) 03/30/24 12:47 Anion Gap 4 mmol/L 03/30/24 12:47 BUN 12 mg/dL (9-20) 03/30/24 12:47 Creatinine 0.79 mg/dL (0.66-1.25) 03/30/24 12:47 Est GFR (CKD-EPI)AfAm >90 (>60 ml/min/1.73 sqM) 03/30/24 12:47 Est GFR (CKD-EPI)NonAf >90 (>60 ml/min/1.73 sqM) 03/30/24 12:47 Glucose 123 mg/dL (74-99) H 03/30/24 12:47 POC Glucose (mg/dL) 145 mg/dL (70-110) H 03/30/24 15:20 POC Glu [employer] ID Tino Ocasio 03/30/24 15:20 Calcium 8.1 mg/dL (8.4-10.2) L 03/30/24 12:47 Ionized Calcium Fred 4.5 mg/dL (4.5-5.3) 03/30/24 12:47 Magnesium 3.2 mg/dL (1.6-2.3) H 03/30/24 12:47 Total Bilirubin 1.0 mg/dL (0.2-1.3) 03/30/24 12:47 AST 31 U/L (17-59) 03/30/24 12:47 ALT 12 U/L (4-49) 03/30/24 12:47 Alkaline Phosphatase 54 U/L (38-126) 03/30/24 12:47 Total Protein 5.6 g/dL (6.3-8.2) L 03/30/24 12:47 Albumin 3.6 g/dL (3.5-5.0) 03/30/24 12:47 Arterial Blood Potassium Cancelled 03/30/24 11:50 Arterial Blood Glucose Cancelled 03/30/24 11:50 PT/INR, D-dimer PT 11.8 sec (10.0-12.5) 03/30/24 12:47 INR 1.1 (<1.2) 03/30/24 12:47 Abnormal lab findings: Abnormal Labs 03/21/24 03/30/24 03/30/24 09:09 06:31 08:40 WBC RBC Hgb Hct Plt Count Neutrophils # APTT ABG pH 7.33 L ABG pCO2 47 H ABG pO2 395 H ABG Total CO2 ABG O2 Saturation >99.4 H ABG Hematocrit ABG Potassium ABG Ionized Calcium ABG Glucose 118 H Hemoglobin 12.3 L Chloride Glucose POC Glucose (mg/dL) 141 H Calcium Magnesium Total Protein Arterial Blood Potassium Arterial Blood Glucose 118 H Crossmatch See Detail 03/30/24 03/30/24 03/30/24 09:22 09:53 10:15 WBC RBC Hgb Hct Plt Count Neutrophils # APTT ABG pH 7.34 L 7.34 L 7.32 L ABG pCO2 47 H ABG pO2 >420 H >420 H 374 H ABG Total CO2 ABG O2 Saturation >99.4 H 99.4 H 99.3 H ABG Hematocrit 24 L 28 L ABG Potassium 4.8 H 4.8 H ABG Ionized Calcium 4.3 L 4.4 L ABG Glucose 114 H 113 H 125 H Hemoglobin 10.9 L 7.8 L 9.1 L Chloride Glucose POC Glucose (mg/dL) Calcium Magnesium Total Protein Arterial Blood Potassium 4.8 H 4.8 H Arterial Blood Glucose 114 H 113 H 125 H Crossmatch 03/30/24 03/30/24 03/30/24 12:47 12:47 12:47 WBC 13.5 H RBC 3.75 L Hgb 11.8 L D Hct 34.5 L Plt Count 129 L Neutrophils # 11.0 H APTT 33.2 H ABG pH ABG pCO2 ABG pO2 ABG Total CO2 ABG O2 Saturation ABG Hematocrit ABG Potassium ABG Ionized Calcium ABG Glucose Hemoglobin Chloride 113 H Glucose 123 H POC Glucose (mg/dL) Calcium 8.1 L Magnesium 3.2 H Total Protein 5.6 L Arterial Blood Potassium Arterial Blood Glucose Crossmatch 03/30/24 03/30/24 03/30/24 12:50 12:54 15:20 WBC RBC Hgb Hct Plt Count Neutrophils # APTT ABG pH 7.28 L ABG pCO2 53 H ABG pO2 115 H ABG Total CO2 26 H ABG O2 Saturation 98.1 H ABG Hematocrit ABG Potassium ABG Ionized Calcium ABG Glucose Hemoglobin 11.6 L Chloride Glucose POC Glucose (mg/dL) 134 H 145 H Calcium Magnesium Total Protein Arterial Blood Potassium Arterial Blood Glucose Crossmatch - Diagnostic Findings Chest x-ray: image reviewed Assessment and Plan Plan: Severe aortic stenosis and the patient is status post aortic valve replacement, postop day #0. Remains intubated on mechanical ventilator. Hemodynamically stable Postthoracotomy, remains intubated on mechanical ventilator and the patient has a left pleural and mediastinal chest tube in place. Output is minimal and there is no evidence of pneumothorax. Adequate oxygenation. Necessary ventilator changes were done Hypertension with postop elevation in the blood pressure, currently on Cleviprex drip Coronary artery disease with previous non-ST segment elevation myocardial infarction. Cardiac catheterization from 03/06/2024 showed patent coronary stent to the circumflex and the RCA Hypertension Hyperlipidemia Peripheral vascular disease Obesity Former smoker Plan Continue vent support. Increase the respiratory rate up to 22 and dropped FiO2 gradually to maintain saturation above 90%. We should be able to gradually wean her down encouraged she is down to 50%. Monitor hemodynamic parameters. Monitor cardiac output. Monitor output from the chest tubes. Keep the patient sedated for now with propofol Continue Cleviprex drip and titrate the dose for a tighter blood pressure co ntrol. Continue insulin drip for blood sugar control currently running at 1.5 units an hour Continue amiodarone drip at 0.5 mg/min Cardiac rhythm is sinus and the patient has a backup pacemaking if needed Anticipate extubation within the next few hours. Will continue to follow make further recommendations based on her progress.
[2024-03-30] MEDS: DEXMEDETOMIDINE/0.9% NACL(PMX) 400 MCG in EMPTY BAG 1 BAG IV SCH (15:54)
[2024-03-30 16:01] LABS: Glucose,Whole Blood 160 mg/dL (70-110)
[2024-03-30 16:16] LABS: Basophils # (A) 0.1 k/uL (0-0.2); Basophils % (A) 0 %; Eosinophils # (A) 0.2 k/uL (0-0.7); Eosinophils % (A) 1 %; HCT 37.8 % (39.0-53.0); HGB 12.8 gm/dL (13.0-17.5); Lymphocytes # (A) 1.6 k/uL (1.0-4.8); Lymphocytes % (A) 10 %; MCH 31.1 pg (25.0-35.0); MCHC 33.8 g/dL (31.0-37.0); MCV 91.9 fL (80.0-100.0); Mean Platelet Volume 8.4; Monocytes # (A) 1.1 k/uL (0-1.0); Monocytes % (A) 7 %; Neutrophils # (A) 13.5 k/uL (1.3-7.7); Neutrophils % (A) 81 %; Platelet Count 153 k/uL (150-450); RBC 4.12 m/uL (4.30-5.90); RDW 14.3 % (11.5-15.5); WBC 16.6 k/uL (3.8-10.6)
[2024-03-30] MEDS: ceFAZolin 3 GM in SODIUM CHLORIDE 0.9% 100 ML IVPB SCH (16:57)
[2024-03-30] MEDS: HEPARIN SODIUM,PORCINE 5,000 UNIT/ML 1 ML VIAL SQ SCH (16:58)
[2024-03-30] MEDS: KETOROLAC 15 MG/ML 1 ML VIAL IVP STA (17:12)
[2024-03-30 17:19] LABS: Glucose,Whole Blood 152 mg/dL (70-110)
[2024-03-30 17:59] LABS: ABG Base Excess -2.6 mmol/L; ABG HCO3 23 mmol/L (21-25); ABG Oxygen Saturation 92.8 % (94-97); ABG PCO2 41 mmHg (35-45); ABG PH 7.36 (7.35-7.45); ABG PO2 65 mmHg (83-108); ABG TCO2 24 mmol/L (19-24)
[2024-03-30 18:02] LABS: Allen Test Performed? no
[2024-03-30 18:21] LABS: Glucose,Whole Blood 151 mg/dL (70-110)
[2024-03-30 18:49] LABS: Glucose,Whole Blood 147 mg/dL (70-110)
[2024-03-30 19:16] LABS: Basophils # (A) 0.1 k/uL (0-0.2); Basophils % (A) 0 %; Eosinophils # (A) 0.1 k/uL (0-0.7); Eosinophils % (A) 1 %; HCT 37.2 % (39.0-53.0); HGB 12.4 gm/dL (13.0-17.5); Lymphocytes # (A) 0.8 k/uL (1.0-4.8); Lymphocytes % (A) 6 %; MCHC 33.4 g/dL (31.0-37.0); MCV 92.9 fL (80.0-100.0); Mean Platelet Volume 8.3; Monocytes # (A) 0.7 k/uL (0-1.0); Monocytes % (A) 6 %; Neutrophils # (A) 10.6 k/uL (1.3-7.7); Neutrophils % (A) 86 %; Platelet Count 146 k/uL (150-450); RDW 13.8 % (11.5-15.5); WBC 12.3 k/uL (3.8-10.6)
[2024-03-30 19:49] LABS: Glucose,Whole Blood 137 mg/dL (70-110)
[2024-03-30] MEDS: hydrALAZINE HCL 20 MG/ML 1 ML VIAL IVP PRN (20:33)
[2024-03-30] MEDS: SENNOSIDES-DOCUSATE SODIUM 1 EACH TAB PO SCH (20:38)
[2024-03-30] MEDS: ATORVASTATIN 80 MG TAB PO SCH (20:38)
[2024-03-30] MEDS: MONTELUKAST 10 MG TAB PO SCH (20:38)
[2024-03-30 21:11] LABS: Glucose,Whole Blood 124 mg/dL (70-110)
[2024-03-30 22:09] LABS: Glucose,Whole Blood 131 mg/dL (70-110)
[2024-03-30 23:00] LABS: Glucose,Whole Blood 130 mg/dL (70-110)
[2024-03-31 00:01] LABS: Glucose,Whole Blood 139 mg/dL (70-110)
[2024-03-31 01:10] LABS: Glucose,Whole Blood 134 mg/dL (70-110)
[2024-03-31 02:06] LABS: Glucose,Whole Blood 131 mg/dL (70-110)
[2024-03-31 03:13] LABS: Glucose,Whole Blood 121 mg/dL (70-110)
[2024-03-31 04:04] LABS: Glucose,Whole Blood 125 mg/dL (70-110)
[2024-03-31 04:44] LABS: Ionized Calcium 4.5 mg/dL (4.5-5.3)
[2024-03-31 04:53] LABS: ALT 13 U/L (4-49); AST 41 U/L (17-59); African American GFR (CKD) >90 (>60 ml/min/1.73 sqM); Albumin 3.9 g/dL (3.5-5.0); Alkaline Phosphatase 61 U/L (38-126); Anion Gap 4 mmol/L; Basophils # (A) 0.1 k/uL (0-0.2); Basophils % (A) 0 %; Blood Urea Nitrogen 14 mg/dL (9-20); Calcium 8.2 mg/dL (8.4-10.2); Carbon Dioxide 21 mmol/L (22-30); Chloride 111 mmol/L (98-107); Eosinophils # (A) 0.1 k/uL (0-0.7); Eosinophils % (A) 0 %; Glucose 111 mg/dL (74-99); HCT 37.7 % (39.0-53.0); HGB 12.7 gm/dL (13.0-17.5); Lymphocytes # (A) 0.9 k/uL (1.0-4.8); Lymphocytes % (A) 5 %; MCH 31.2 pg (25.0-35.0); MCHC 33.6 g/dL (31.0-37.0); MCV 92.6 fL (80.0-100.0); Magnesium 2.6 mg/dL (1.6-2.3); Mean Platelet Volume 7.6; Monocytes # (A) 1.2 k/uL (0-1.0); Monocytes % (A) 7 %; Neutrophils # (A) 14.1 k/uL (1.3-7.7); Neutrophils % (A) 86 %; Non-African American GFR(CKD) >90 (>60 ml/min/1.73 sqM); Platelet Count 159 k/uL (150-450); RBC 4.07 m/uL (4.30-5.90); RDW 13.9 % (11.5-15.5); Sodium 136 mmol/L (137-145); Total Bilirubin 0.9 mg/dL (0.2-1.3); WBC 16.5 k/uL (3.8-10.6)
[2024-03-31] MEDS: carvediloL 6.25 MG TAB PO SCH (05:21)
[2024-03-31 06:11] LABS: Glucose,Whole Blood 136 mg/dL (70-110)
--- NOTE | 2024-03-31 06:31 | XR ---
EXAMINATION TYPE: XR chest 1V portable DATE OF EXAM: 03/31/2024 COMPARISON: 03/30/2024 HISTORY: Postop cardiac surgery TECHNIQUE: Single frontal view of the chest is obtained. FINDINGS: There has been interval removal of the NG tube and ET tube. The Belen-Karen catheter and left-sided jennifer st tube are stable. There is mild bilateral pleural fluid. There is no pneumothorax. The pulmonary vasculature does not a ppear congested. IMPRESSION: 1. Interval removal of the NG tube and ET tube. 2. Mild pleural fluid. 3. No pneumothorax or overt pulmonary vascular congestion. [facility], , 03/31/2024 6:28 AM
[2024-03-31 07:09] LABS: Glucose,Whole Blood 129 mg/dL (70-110)
[2024-03-31 07:57] LABS: Glucose,Whole Blood 245 mg/dL (70-110)
[2024-03-31] MEDS: ASPIRIN 325 MG TAB PO SCH (08:46)
[2024-03-31] MEDS: AMIODARONE 200 MG TAB PO SCH (08:47)
[2024-03-31] MEDS: CLOPIDOGREL 75 MG TAB PO SCH (08:47)
[2024-03-31] MEDS: LOSARTAN 50 MG TAB PO SCH (08:47)
[2024-03-31] MEDS: LORATADINE 10 MG TAB PO SCH (08:47)
[2024-03-31] MEDS: VITAMIN E (DL,TOCOPHERYL ACET) 400 UNIT (180 MG) CAP PO SCH (08:47)
[2024-03-31] MEDS: PANTOPRAZOLE 40 MG/10 ML VIAL IVP SCH (08:47)
[2024-03-31] MEDS: ASCORBIC ACID 500 MG TAB PO SCH (08:47)
[2024-03-31] MEDS: CHOLECALCIFEROL 25 MCG (1000 IU) TABLET PO SCH (08:47)
[2024-03-31] MEDS ORDERED: MAGNESIUM HYDROXIDE 2,400 MG/30 ML CUP PO PRN (09:00)
[2024-03-31 09:02] LABS: Glucose,Whole Blood 200 mg/dL (70-110)
[2024-03-31] MEDS: KETOROLAC 15 MG/ML 1 ML VIAL IVP SCH (09:14)
[2024-03-31 10:15] LABS: Glucose,Whole Blood 142 mg/dL (70-110)
--- NOTE | 2024-03-31 10:37 | P.HPIM ---
History of Present Illness H&P Date: 03/31/24 Chief Complaint: Medical management 69-year-old male seen evaluate examined, patient admitted electively after aortic valve replacement, patient successfully weaned and extubated sitting upright on the chair have 2 chest tubes 1 likely to be removed. Patient baseline problems significant for coronary artery disease history of stent placement on March 06, 2024 in RCA and circumflex. Workup and evaluation revealed that patient has preserved LV function however noted to have severe degree of aortic stenosis at that time. It is it was recurrent recommended to undergo aortic valve replacement today he is postop day #1 slightly hypertensive on Cleviprex drip being titrated down. Other active medical issues include diabetes mellitus type 2, dyslipidemia, hypertension hypertensive cardiovascular disease, sleep disordered breathing and sleep apnea with a failed trial of CPAP and returned the CPAP machine patient is a ex-smoker Review of Systems All systems: negative Past Medical History Past Medical History: Coronary Artery Disease (CAD), Diabetes Mellitus, Hyperlipidemia, Hypertension Additional Past Medical History / Comment(s): NSTEMI 2021, aortic valve regurgitation/murmur, PVD, bilateral leg edema, bilateral tinnitis. some SOB w/exertion @times Last Myocardial Infarction Date:: 2021 History of Any Multi-Drug Resistant Organisms: None Reported Past Surgical History: Cholecystectomy, Heart Catheterization With Stent, Joint Replacement, Orthopedic Surgery Additional Past Surgical History / Comment(s): Double hip replacement Past Anesthesia/Blood Transfusion Reactions: No Reported Reaction Date of Last Stent Placement:: 2021 Smoking Status: Former smoker - Past Family History Father Additional Family Medical History / Comment(s): Parkinsons Mother Family Medical History: Diabetes Mellitus, Thyroid Disorder Medications and Allergies Home Medications Medication Instructions Recorded Confirmed Type Dulaglutide [Trulicity] 3 mg SQ TH 11/24/21 03/21/24 History Atorvastatin [Lipitor] 80 mg PO HS #90 tab 11/27/21 03/21/24 Rx carvediloL [Coreg] 6.25 mg PO BID-W/MEALS #180 tab 11/27/21 03/21/24 Rx Aspirin 81 mg PO QAM 05/23/23 03/21/24 History Furosemide [Lasix] 40 mg PO QAM 05/23/23 03/21/24 History Losartan [Cozaar] 100 mg PO QAM 05/23/23 03/29/24 History Montelukast [Singulair] 10 mg PO HS 05/23/23 03/21/24 History Ascorbic Acid [Vitamin C] 1,000 mg PO DAILY 03/01/24 03/21/24 History Cetirizine HCl [Zyrtec] 10 mg PO DAILY 03/01/24 03/21/24 History Cholecalciferol [Vitamin D3 (25 25 mcg PO DAILY 03/01/24 03/21/24 History Mcg = 1000 Iu)] Vitamin E (Dl,Tocopheryl Acet) 450 mg PO DAILY 03/01/24 03/21/24 History [Vitamin E (100 Iu = 45MG)] Lutein 40 mg PO DAILY 03/21/24 03/21/24 History Ticagrelor [Brilinta] 90 mg PO BID 03/21/24 03/21/24 History Turmeric Root Extract [Turmeric] 1,950 mg PO DAILY 03/21/24 03/21/24 History Allergies Allergy/AdvReac Type Severity Reaction Status Date / Time No Known Allergies Allergy Verified 03/30/24 05:58 Physical Exam Vitals: Vital Signs Temp Pulse Resp BP Pulse Ox FiO2 03/31/24 10:15 63 16 128/67 95 03/31/24 10:00 63 15 94 L 03/31/24 09:45 64 17 99/88 94 L 03/31/24 09:30 67 17 91 L 03/31/24 09:15 67 18 137/75 95 03/31/24 09:00 68 19 96 03/31/24 08:45 67 16 96 03/31/24 08:37 69 03/31/24 08:30 67 16 130/66 97 03/31/24 08:23 95 03/31/24 08:19 69 03/31/24 08:15 68 17 130/66 96 03/31/24 08:00 68 17 139/50 96 03/31/24 07:45 99.5 F 70 19 139/50 95 03/31/24 07:30 71 21 137/60 93 L 03/31/24 07:15 70 20 120/57 91 L 03/31/24 07:00 70 15 130/53 94 L 03/31/24 06:45 66 15 148/58 94 L 03/31/24 06:30 68 19 94 L 03/31/24 06:15 71 16 146/59 91 L 03/31/24 06:00 70 20 143/59 90 L 03/31/24 05:45 68 21 146/55 92 L 03/31/24 05:30 71 19 149/61 92 L 03/31/24 05:15 70 19 147/62 95 03/31/24 05:00 72 23 141/70 97 03/31/24 04:45 79 16 170/71 93 L 03/31/24 04:30 71 21 90 L 03/31/24 04:15 71 19 173/83 93 L 03/31/24 04:00 101.7 F H 73 24 91 L 03/31/24 03:54 60 03/31/24 03:45 73 19 157/58 89 L 03/31/24 03:30 68 19 154/56 95 03/31/24 03:15 68 18 154/59 95 03/31/24 03:00 70 20 151/70 95 03/31/24 02:45 67 18 147/57 95 03/31/24 02:30 68 18 138/65 93 L 60 03/31/24 02:15 70 19 144/52 91 L 03/31/24 02:00 69 19 146/50 91 L 03/31/24 01:45 68 20 147/51 91 L 03/31/24 01:30 70 18 148/54 94 L 03/31/24 01:15 70 22 140/60 94 L 03/31/24 01:00 71 15 152/54 93 L 03/31/24 00:45 68 15 152/56 93 L 03/31/24 00:36 60 03/31/24 00:30 72 16 157/49 91 L 60 03/31/24 00:15 66 14 156/51 91 L 03/31/24 00:00 99.7 F H 69 21 160/65 92 L 50 03/30/24 23:45 71 14 153/68 91 L 03/30/24 23:30 70 19 166/64 92 L 03/30/24 23:15 70 22 163/65 93 L 03/30/24 23:00 72 21 164/62 93 L 03/30/24 22:45 70 20 159/64 94 L 03/30/24 22:30 70 21 158/64 93 L 03/30/24 22:18 66 20 94 L 03/30/24 22:15 65 21 94 L 03/30/24 22:00 70 21 158/64 95 03/30/24 21:45 67 20 94 L 50 03/30/24 21:42 50 03/30/24 21:30 68 20 94 L 03/30/24 21:28 50 03/30/24 21:15 66 24 140/63 94 L 03/30/24 21:00 67 21 153/65 94 L 03/30/24 20:45 67 17 94 L 03/30/24 20:31 69 03/30/24 20:30 64 15 147/65 97 03/30/24 20:21 67 03/30/24 20:15 64 16 93 L 03/30/24 20:00 98.3 F 61 17 147/65 94 L 03/30/24 19:45 64 18 94 L 03/30/24 19:30 67 12 92 L 03/30/24 19:15 67 25 H 93 L 03/30/24 19:00 63 18 133/66 92 L 03/30/24 18:45 64 16 94 L 03/30/24 18:30 64 15 133/66 94 L 03/30/24 18:15 62 16 91 L 03/30/24 18:00 64 18 116/57 94 L 50 03/30/24 17:45 66 15 95 03/30/24 17:35 94 L 03/30/24 17:32 50 03/30/24 17:30 64 22 94 L 03/30/24 17:15 62 22 94 L 03/30/24 17:00 64 24 143/60 94 L 03/30/24 16:45 66 22 94 L 03/30/24 16:30 69 22 93 L 03/30/24 16:15 68 22 95 03/30/24 16:00 67 18 95 50 03/30/24 15:45 63 22 95 03/30/24 15:35 50 03/30/24 15:30 65 22 97 03/30/24 15:15 64 22 132/60 98 03/30/24 15:01 65 03/30/24 15:00 65 22 98 03/30/24 14:52 66 03/30/24 14:50 60 03/30/24 14:45 63 22 98 03/30/24 14:30 62 19 97 03/30/24 14:15 64 22 96 03/30/24 14:00 64 22 122/57 96 03/30/24 13:45 65 0 L 116/60 97 03/30/24 13:30 62 13 113/57 100 03/30/24 13:15 61 94/79 100 03/30/24 13:06 80 03/30/24 13:05 80 03/30/24 13:00 61 12 94/79 100 100 03/30/24 12:50 61 12 100 03/30/24 12:40 68 12 100 03/30/24 12:33 67 12 03/30/24 12:32 100 Intake and Output 03/30/24 03/31/24 03/31/24 22:59 06:59 14:59 Intake Total 5492.446 9845.587 891.573 Output Total 841 814 319 Balance 414.199 627.587 572.573 Intake: IV 892 742 356 ACETAMINOPHEN IV (For NPO 200 100 100 ) 1,000 mg In Empty Bag 1 bag @ 400 mls/hr IVPB Q6HR [facility] Rx#:[id number] CO/CI 120 70 20 Pressure Bags 72 72 36 Sodium Chloride 0.9% 1, 400 400 200 000 ml @ 20 mls/hr IV . Q24H [facility] Rx#:[id number] ceFAZolin 3 gm In Sodium 100 100 Chloride 0.9% 100 ml @ 100 mls/hr IVPB Q8HR [facility] Rx#:[id number] Intake, IV Titration 263.199 449.587 55.573 Amount Amiodarone 450 mg In 227.782 Dextrose 5% in Water 250 ml @ 0.5 MG/MIN 16.667 mls/hr IV .Q15H PRN Rx#: [id number] Clevidipine Butyrate 25 109.667 184.267 29.767 mg In Empty Bag 1 bag @ 1 MG/HR 2 mls/hr IV .Q24H [facility] Rx#:[id number] Dexmedetomidine/0.9% NaCl 46.324 (Pmx) 400 mcg In Empty Bag 1 bag @ Titrate IV . Q0M [facility] Rx#:[id number] Insulin Regular 100 unit 27.153 37.538 25.806 In Sodium Chloride 0.9% 100 ml @ Per Protocol IV .Q0M [facility] Rx#:[id number] propofoL 1,000 mg In 80.055 Empty Bag 1 bag @ Titrate IV .Q0M [facility] Rx#: [id number] Oral 100 250 480 Output: Chest Tube Drainage 211 309 104 Left Pleural/Mediastinal 53 107 24 Mediastinal 158 202 80 Gastric Drainage 150 Urine 480 505 215 Other: Voiding Method Indwelling Catheter Indwelling Catheter Weight 142.6 kg ABP, PAP, CO, CI - Last 8 Hours Arterial Blood Pressure 158/51 Arterial Blood Pressure 159/52 Arterial Blood Pressure 163/52 Arterial Blood Pressure 157/52 Arterial Blood Pressure 174/55 Arterial Blood Pressure 165/51 Arterial Blood Pressure 157/50 Arterial Blood Pressure 166/53 Arterial Blood Pressure 161/52 Arterial Blood Pressure 170/54 Arterial Blood Pressure 178/53 Arterial Blood Pressure 180/56 Arterial Blood Pressure 182/54 Arterial Blood Pressure 159/53 Arterial Blood Pressure 172/54 Arterial Blood Pressure 170/49 Arterial Blood Pressure 178/50 Arterial Blood Pressure 167/54 Arterial Blood Pressure 190/51 Arterial Blood Pressure 194/56 Arterial Blood Pressure 199/56 Arterial Blood Pressure 177/57 Pulmonary Artery Pressure 38/15 Pulmonary Artery Pressure 37/14 Pulmonary Artery Pressure 38/15 Pulmonary Artery Pressure 39/17 Pulmonary Artery Pressure 39/17 Pulmonary Artery Pressure 40/19 Pulmonary Artery Pressure 37/14 Pulmonary Artery Pressure 38/15 Pulmonary Artery Pressure 39/17 Pulmonary Artery Pressure 44/20 Pulmonary Artery Pressure 43/18 Pulmonary Artery Pressure 42/19 Pulmonary Artery Pressure 43/19 Pulmonary Artery Pressure 39/18 Pulmonary Artery Pressure 41/18 Pulmonary Artery Pressure 41/18 Pulmonary Artery Pressure 44/18 Pulmonary Artery Pressure 44/16 Pulmonary Artery Pressure 39/13 Pulmonary Artery Pressure 42/19 Pulmonary Artery Pressure 40/15 Pulmonary Artery Pressure 39/15 Pulmonary Artery Pressure 38/14 Pulmonary Artery Pressure 43/16 Pulmonary Artery Pressure 48/20 Pulmonary Artery Pressure 44/15 Pulmonary Artery Pressure 49/19 Pulmonary Artery Pressure 47/25 Pulmonary Artery Pressure 47/24 Pulmonary Artery Pressure 48/24 Pulmonary Artery Pressure 47/18 Cardiac Output 6.5 Cardiac Output 7.5 Cardiac Output 7.5 Cardiac Output 7.5 Cardiac Output 7.5 Cardiac Output 8.2 Cardiac Index 2.5 Cardiac Index 2.9 Cardiac Index 2.9 Cardiac Index 2.9 Cardiac Index 2.9 Cardiac Index 3.2 - Constitutional General appearance: average body habitus, cooperative, disheveled - EENT Eyes: EOMI, PERRLA ENT: normal oropharynx Ears: bilateral: normal - Neck Neck: normal ROM Carotids: bilateral: upstroke normal - Respiratory Respiratory: bilateral: diminished - Cardiovascular Rhythm: regular Heart sounds: normal: S1, S2 - Integumentary Integumentary: normal turgor - Neurologic Neurologic: CNII-XII intact - Musculoskeletal Musculoskeletal: gait normal, generalized weakness, strength equal bilaterally - Psychiatric Psychiatric: A&O x's 3, appropriate affect, intact judgment & insight Results CBC & Chem 7: 03/31/24 04:00 03/31/24 04:00 Labs: Abnormal Lab Results - Last 24 Hours (Table) 03/21/24 03/30/24 03/30/24 Range/Units 09:09 08:40 09:22 WBC (3.8-10.6) k/uL RBC (4.30-5.90) m/uL Hgb (13.0-17.5) gm/dL Hct (39.0-53.0) % Plt Count (150-450) k/uL Neutrophils # (1.3-7.7) k/uL Lymphocytes # (1.0-4.8) k/uL Monocytes # (0-1.0) k/uL APTT (22.0-30.0) sec ABG pH 7.33 L 7.34 L (7.35-7.45) ABG pCO2 47 H (35-45) mmHg ABG pO2 395 H >420 H (83-108) mmHg ABG Total CO2 (19-24) mmol/L ABG O2 Saturation >99.4 H >99.4 H (94-97) % ABG Hematocrit (34.0-46.0) % ABG Potassium (3.4-4.5) mmol/L ABG Ionized Calcium (4.5-5.3) mg/dL ABG Glucose 118 H 114 H (75-99) mg/dL Hemoglobin 12.3 L 10.9 L (13.0-17.5) gm/dL Sodium (137-145) mmol/L Chloride (98-107) mmol/L Carbon Dioxide (22-30) mmol/L Glucose (74-99) mg/dL POC Glucose (mg/dL) (70-110) mg/dL Calcium (8.4-10.2) mg/dL Magnesium (1.6-2.3) mg/dL Total Protein (6.3-8.2) g/dL Arterial Blood Potassium (3.4-4.5) mmol/L Arterial Blood Glucose 118 H 114 H (75-99) mg/dL Crossmatch See Detail 03/30/24 03/30/24 03/30/24 Range/Units 09:53 10:15 12:47 WBC 13.5 H (3.8-10.6) k/uL RBC 3.75 L (4.30-5.90) m/uL Hgb 11.8 L D (13.0-17.5) gm/dL Hct 34.5 L (39.0-53.0) % Plt Count 129 L (150-450) k/uL Neutrophils # 11.0 H (1.3-7.7) k/uL Lymphocytes # (1.0-4.8) k/uL Monocytes # (0-1.0) k/uL APTT (22.0-30.0) sec ABG pH 7.34 L 7.32 L (7.35-7.45) ABG pCO2 47 H (35-45) mmHg ABG pO2 >420 H 374 H (83-108) mmHg ABG Total CO2 (19-24) mmol/L ABG O2 Saturation 99.4 H 99.3 H (94-97) % ABG Hematocrit 24 L 28 L (34.0-46.0) % ABG Potassium 4.8 H 4.8 H (3.4-4.5) mmol/L ABG Ionized Calcium 4.3 L 4.4 L (4.5-5.3) mg/dL ABG Glucose 113 H 125 H (75-99) mg/dL Hemoglobin 7.8 L 9.1 L (13.0-17.5) gm/dL Sodium (137-145) mmol/L Chloride (98-107) mmol/L Carbon Dioxide (22-30) mmol/L Glucose (74-99) mg/dL POC Glucose (mg/dL) (70-110) mg/dL Calcium (8.4-10.2) mg/dL Magnesium (1.6-2.3) mg/dL Total Protein (6.3-8.2) g/dL Arterial Blood Potassium 4.8 H 4.8 H (3.4-4.5) mmol/L Arterial Blood Glucose 113 H 125 H (75-99) mg/dL Crossmatch 03/30/24 03/30/24 03/30/24 Range/Units 12:47 12:47 12:50 WBC (3.8-10.6) k/uL RBC (4.30-5.90) m/uL Hgb (13.0-17.5) gm/dL Hct (39.0-53.0) % Plt Count (150-450) k/uL Neutrophils # (1.3-7.7) k/uL Lymphocytes # (1.0-4.8) k/uL Monocytes # (0-1.0) k/uL APTT 33.2 H (22.0-30.0) sec ABG pH (7.35-7.45) ABG pCO2 (35-45) mmHg ABG pO2 (83-108) mmHg ABG Total CO2 (19-24) mmol/L ABG O2 Saturation (94-97) % ABG Hematocrit (34.0-46.0) % ABG Potassium (3.4-4.5) mmol/L ABG Ionized Calcium (4.5-5.3) mg/dL ABG Glucose (75-99) mg/dL Hemoglobin (13.0-17.5) gm/dL Sodium (137-145) mmol/L Chloride 113 H (98-107) mmol/L Carbon Dioxide (22-30) mmol/L Glucose 123 H (74-99) mg/dL POC Glucose (mg/dL) 134 H (70-110) mg/dL Calcium 8.1 L (8.4-10.2) mg/dL Magnesium 3.2 H (1.6-2.3) mg/dL Total Protein 5.6 L (6.3-8.2) g/dL Arterial Blood Potassium (3.4-4.5) mmol/L Arterial Blood Glucose (75-99) mg/dL Crossmatch 03/30/24 03/30/24 03/30/24 Range/Units 12:54 15:20 15:59 WBC (3.8-10.6) k/uL RBC (4.30-5.90) m/uL Hgb (13.0-17.5) gm/dL Hct (39.0-53.0) % Plt Count (150-450) k/uL Neutrophils # (1.3-7.7) k/uL Lymphocytes # (1.0-4.8) k/uL Monocytes # (0-1.0) k/uL APTT (22.0-30.0) sec ABG pH 7.28 L (7.35-7.45) ABG pCO2 53 H (35-45) mmHg ABG pO2 115 H (83-108) mmHg ABG Total CO2 26 H (19-24) mmol/L ABG O2 Saturation 98.1 H (94-97) % ABG Hematocrit (34.0-46.0) % ABG Potassium (3.4-4.5) mmol/L ABG Ionized Calcium (4.5-5.3) mg/dL ABG Glucose (75-99) mg/dL Hemoglobin 11.6 L (13.0-17.5) gm/dL Sodium (137-145) mmol/L Chloride (98-107) mmol/L Carbon Dioxide (22-30) mmol/L Glucose (74-99) mg/dL POC Glucose (mg/dL) 145 H 160 H (70-110) mg/dL Calcium (8.4-10.2) mg/dL Magnesium (1.6-2.3) mg/dL Total Protein (6.3-8.2) g/dL Arterial Blood Potassium (3.4-4.5) mmol/L Arterial Blood Glucose (75-99) mg/dL Crossmatch 03/30/24 03/30/24 03/30/24 Range/Units 16:00 17:17 17:57 WBC 16.6 H (3.8-10.6) k/uL RBC 4.12 L (4.30-5.90) m/uL Hgb 12.8 L (13.0-17.5) gm/dL Hct 37.8 L (39.0-53.0) % Plt Count (150-450) k/uL Neutrophils # 13.5 H (1.3-7.7) k/uL Lymphocytes # (1.0-4.8) k/uL Monocytes # 1.1 H (0-1.0) k/uL APTT (22.0-30.0) sec ABG pH (7.35-7.45) ABG pCO2 (35-45) mmHg ABG pO2 65 L (83-108) mmHg ABG Total CO2 (19-24) mmol/L ABG O2 Saturation 92.8 L (94-97) % ABG Hematocrit (34.0-46.0) % ABG Potassium (3.4-4.5) mmol/L ABG Ionized Calcium (4.5-5.3) mg/dL ABG Glucose (75-99) mg/dL Hemoglobin 12.6 L (13.0-17.5) gm/dL Sodium (137-145) mmol/L Chloride (98-107) mmol/L Carbon Dioxide (22-30) mmol/L Glucose (74-99) mg/dL POC Glucose (mg/dL) 152 H (70-110) mg/dL Calcium (8.4-10.2) mg/dL Magnesium (1.6-2.3) mg/dL Total Protein (6.3-8.2) g/dL Arterial Blood Potassium (3.4-4.5) mmol/L Arterial Blood Glucose (75-99) mg/dL Crossmatch 03/30/24 03/30/24 03/30/24 Range/Units 18:20 18:48 18:48 WBC 12.3 H (3.8-10.6) k/uL RBC 4.00 L (4.30-5.90) m/uL Hgb 12.4 L (13.0-17.5) gm/dL Hct 37.2 L (39.0-53.0) % Plt Count 146 L (150-450) k/uL Neutrophils # 10.6 H (1.3-7.7) k/uL Lymphocytes # 0.8 L (1.0-4.8) k/uL Monocytes # (0-1.0) k/uL APTT (22.0-30.0) sec ABG pH (7.35-7.45) ABG pCO2 (35-45) mmHg ABG pO2 (83-108) mmHg ABG Total CO2 (19-24) mmol/L ABG O2 Saturation (94-97) % ABG Hematocrit (34.0-46.0) % ABG Potassium (3.4-4.5) mmol/L ABG Ionized Calcium (4.5-5.3) mg/dL ABG Glucose (75-99) mg/dL Hemoglobin (13.0-17.5) gm/dL Sodium (137-145) mmol/L Chloride (98-107) mmol/L Carbon Dioxide (22-30) mmol/L Glucose (74-99) mg/dL POC Glucose (mg/dL) 151 H 147 H (70-110) mg/dL Calcium (8.4-10.2) mg/dL Magnesium (1.6-2.3) mg/dL Total Protein (6.3-8.2) g/dL Arterial Blood Potassium (3.4-4.5) mmol/L Arterial Blood Glucose (75-99) mg/dL Crossmatch 03/30/24 03/30/24 03/30/24 Range/Units 19:47 21:09 22:07 WBC (3.8-10.6) k/uL RBC (4.30-5.90) m/uL Hgb (13.0-17.5) gm/dL Hct (39.0-53.0) % Plt Count (150-450) k/uL Neutrophils # (1.3-7.7) k/uL Lymphocytes # (1.0-4.8) k/uL Monocytes # (0-1.0) k/uL APTT (22.0-30.0) sec ABG pH (7.35-7.45) ABG pCO2 (35-45) mmHg ABG pO2 (83-108) mmHg ABG Total CO2 (19-24) mmol/L ABG O2 Saturation (94-97) % ABG Hematocrit (34.0-46.0) % ABG Potassium (3.4-4.5) mmol/L ABG Ionized Calcium (4.5-5.3) mg/dL ABG Glucose (75-99) mg/dL Hemoglobin (13.0-17.5) gm/dL Sodium (137-145) mmol/L Chloride (98-107) mmol/L Carbon Dioxide (22-30) mmol/L Glucose (74-99) mg/dL POC Glucose (mg/dL) 137 H 124 H 131 H (70-110) mg/dL Calcium (8.4-10.2) mg/dL Magnesium (1.6-2.3) mg/dL Total Protein (6.3-8.2) g/dL Arterial Blood Potassium (3.4-4.5) mmol/L Arterial Blood Glucose (75-99) mg/dL Crossmatch 03/30/24 03/30/24 03/31/24 Range/Units 22:59 23:59 01:09 WBC (3.8-10.6) k/uL RBC (4.30-5.90) m/uL Hgb (13.0-17.5) gm/dL Hct (39.0-53.0) % Plt Count (150-450) k/uL Neutrophils # (1.3-7.7) k/uL Lymphocytes # (1.0-4.8) k/uL Monocytes # (0-1.0) k/uL APTT (22.0-30.0) sec ABG pH (7.35-7.45) ABG pCO2 (35-45) mmHg ABG pO2 (83-108) mmHg ABG Total CO2 (19-24) mmol/L ABG O2 Saturation (94-97) % ABG Hematocrit (34.0-46.0) % ABG Potassium (3.4-4.5) mmol/L ABG Ionized Calcium (4.5-5.3) mg/dL ABG Glucose (75-99) mg/dL Hemoglobin (13.0-17.5) gm/dL Sodium (137-145) mmol/L Chloride (98-107) mmol/L Carbon Dioxide (22-30) mmol/L Glucose (74-99) mg/dL POC Glucose (mg/dL) 130 H 139 H 134 H (70-110) mg/dL Calcium (8.4-10.2) mg/dL Magnesium (1.6-2.3) mg/dL Total Protein (6.3-8.2) g/dL Arterial Blood Potassium (3.4-4.5) mmol/L Arterial Blood Glucose (75-99) mg/dL Crossmatch 03/31/24 03/31/24 03/31/24 Range/Units 02:05 03:11 04:00 WBC 16.5 H (3.8-10.6) k/uL RBC 4.07 L (4.30-5.90) m/uL Hgb 12.7 L (13.0-17.5) gm/dL Hct 37.7 L (39.0-53.0) % Plt Count (150-450) k/uL Neutrophils # 14.1 H (1.3-7.7) k/uL Lymphocytes # 0.9 L (1.0-4.8) k/uL Monocytes # 1.2 H (0-1.0) k/uL APTT (22.0-30.0) sec ABG pH (7.35-7.45) ABG pCO2 (35-45) mmHg ABG pO2 (83-108) mmHg ABG Total CO2 (19-24) mmol/L ABG O2 Saturation (94-97) % ABG Hematocrit (34.0-46.0) % ABG Potassium (3.4-4.5) mmol/L ABG Ionized Calcium (4.5-5.3) mg/dL ABG Glucose (75-99) mg/dL Hemoglobin (13.0-17.5) gm/dL Sodium (137-145) mmol/L Chloride (98-107) mmol/L Carbon Dioxide (22-30) mmol/L Glucose (74-99) mg/dL POC Glucose (mg/dL) 131 H 121 H (70-110) mg/dL Calcium (8.4-10.2) mg/dL Magnesium (1.6-2.3) mg/dL Total Protein (6.3-8.2) g/dL Arterial Blood Potassium (3.4-4.5) mmol/L Arterial Blood Glucose (75-99) mg/dL Crossmatch 03/31/24 03/31/24 03/31/24 Range/Units 04:00 04:02 06:09 WBC (3.8-10.6) k/uL RBC (4.30-5.90) m/uL Hgb (13.0-17.5) gm/dL Hct (39.0-53.0) % Plt Count (150-450) k/uL Neutrophils # (1.3-7.7) k/uL Lymphocytes # (1.0-4.8) k/uL Monocytes # (0-1.0) k/uL APTT (22.0-30.0) sec ABG pH (7.35-7.45) ABG pCO2 (35-45) mmHg ABG pO2 (83-108) mmHg ABG Total CO2 (19-24) mmol/L ABG O2 Saturation (94-97) % ABG Hematocrit (34.0-46.0) % ABG Potassium (3.4-4.5) mmol/L ABG Ionized Calcium (4.5-5.3) mg/dL ABG Glucose (75-99) mg/dL Hemoglobin (13.0-17.5) gm/dL Sodium 136 L (137-145) mmol/L Chloride 111 H (98-107) mmol/L Carbon Dioxide 21 L (22-30) mmol/L Glucose 111 H (74-99) mg/dL POC Glucose (mg/dL) 125 H 136 H (70-110) mg/dL Calcium 8.2 L (8.4-10.2) mg/dL Magnesium 2.6 H (1.6-2.3) mg/dL Total Protein 6.0 L (6.3-8.2) g/dL Arterial Blood Potassium (3.4-4.5) mmol/L Arterial Blood Glucose (75-99) mg/dL Crossmatch 03/31/24 03/31/24 03/31/24 Range/Units 07:08 07:56 09:00 WBC (3.8-10.6) k/uL RBC (4.30-5.90) m/uL Hgb (13.0-17.5) gm/dL Hct (39.0-53.0) % Plt Count (150-450) k/uL Neutrophils # (1.3-7.7) k/uL Lymphocytes # (1.0-4.8) k/uL Monocytes # (0-1.0) k/uL APTT (22.0-30.0) sec ABG pH (7.35-7.45) ABG pCO2 (35-45) mmHg ABG pO2 (83-108) mmHg ABG Total CO2 (19-24) mmol/L ABG O2 Saturation (94-97) % ABG Hematocrit (34.0-46.0) % ABG Potassium (3.4-4.5) mmol/L ABG Ionized Calcium (4.5-5.3) mg/dL ABG Glucose (75-99) mg/dL Hemoglobin (13.0-17.5) gm/dL Sodium (137-145) mmol/L Chloride (98-107) mmol/L Carbon Dioxide (22-30) mmol/L Glucose (74-99) mg/dL POC Glucose (mg/dL) 129 H 245 H 200 H (70-110) mg/dL Calcium (8.4-10.2) mg/dL Magnesium (1.6-2.3) mg/dL Total Protein (6.3-8.2) g/dL Arterial Blood Potassium (3.4-4.5) mmol/L Arterial Blood Glucose (75-99) mg/dL Crossmatch 03/31/24 Range/Units 10:13 WBC (3.8-10.6) k/uL RBC (4.30-5.90) m/uL Hgb (13.0-17.5) gm/dL Hct (39.0-53.0) % Plt Count (150-450) k/uL Neutrophils # (1.3-7.7) k/uL Lymphocytes # (1.0-4.8) k/uL Monocytes # (0-1.0) k/uL APTT (22.0-30.0) sec ABG pH (7.35-7.45) ABG pCO2 (35-45) mmHg ABG pO2 (83-108) mmHg ABG Total CO2 (19-24) mmol/L ABG O2 Saturation (94-97) % ABG Hematocrit (34.0-46.0) % ABG Potassium (3.4-4.5) mmol/L ABG Ionized Calcium (4.5-5.3) mg/dL ABG Glucose (75-99) mg/dL Hemoglobin (13.0-17.5) gm/dL Sodium (137-145) mmol/L Chloride (98-107) mmol/L Carbon Dioxide (22-30) mmol/L Glucose (74-99) mg/dL POC Glucose (mg/dL) 142 H (70-110) mg/dL Calcium (8.4-10.2) mg/dL Magnesium (1.6-2.3) mg/dL Total Protein (6.3-8.2) g/dL Arterial Blood Potassium (3.4-4.5) mmol/L Arterial Blood Glucose (75-99) mg/dL Crossmatch Chest x-ray: report reviewed (Last chest x-ray minimal basilar atelectasis or effusion stable PA catheter and left-sided chest), image reviewed Thrombosis Risk Factor Assmnt - Choose All That Apply Other Risk Factors: Yes Each Risk Factor Represents 2 Points: Age 61-74 years, Major surgery Thrombosis Risk Factor Assessment Total Risk Factor Score: 4 Thrombosis Risk Factor Assessment Level: Moderate Risk Assessment and Plan Assessment: Severe aortic stenosis, status post aortic valve replacement Postop vent support successfully been extubated on supplemental oxygen Basal atelectasis continue deep breathing side incentive spirometry Hypertension, on Cleviprex drip, continue to titrate down reinitiate home antihypertensive agents Sleep disordered breathing and sleep apnea will discuss with patient again about importance of using CPAP machine Coronary artery disease status post stent in RCA and circumflex doing well Dyslipidemia peripheral vascular disease obesity continue expectant treatment with high intensity statins antiplatelet agent Plan: As above Time with Patient: Greater than 30
[2024-03-31 11:12] LABS: Glucose,Whole Blood 113 mg/dL (70-110)
[2024-03-31] MEDS: BENZOCAINE/MENTHOL LOZENG 1 EACH LOZENGE MUCOUS MEM PRN (11:21)
--- NOTE | 2024-03-31 11:32 | P.PN ---
Subjective Progress Note Date: 03/31/24 Principal diagnosis: Symptomatic severe calcific aortic stenosis. Past medical history significant for hypertension, hyperlipidemia, diabetes mellitus type 2 with a preoperative h emoglobin A1c 5.9%, coronary artery disease with prior PCI to his right coronary artery and left circumflex coronary artery, and remote history of nicotine dependence quit smoking in 2017. POD #1 Aortic valve replacement with 27 mm Inspiris Resilia bovine pericardial valve, exclusion of left atrial appendage with 35mm AtriCure clip. Postoperative acute blood loss anemia, expected given hemodilution and cardiopulmonary bypass. The patient was seen and examined in follow-up today March 31, 2024 at his bedside in the intensive care unit. He was successfully extubated at 6:06 PM last evening, is currently on 2 L nasal cannula with oxygen saturations 94% and he is achieving 1000 mL on his incentive spirometry with encouragement. He is currently sitting up to the bedside chair, is awake, alert, oriented x 3 and is in no acute apparent distress. Denies any complaints of shortness of breath at this time, although is complaining of some surgical type pain with taking a deep breath and to his chest tube insertion site. Bedside telemetry is showing normal sinus rhythm heart rate 71 bpm. Right IJ cordis and [place]-Karen catheter remains in place with current hemodynamic showing a cardiac output 7.5, cardiac index 2.9, PA pressures 42/18, CVP pressure 13 and SVR 714. Patient is curr ently on Cleviprex drip at 7 mg/h, amiodarone drip at 0.5 mg/h and insulin drip at 4.5 units/h. Mediastinal and left pleural chest tubes remain in place to low continuous wall suction -20 cm H2O. No air leak is present. Draining thin serosanguineous drainage. Mediastinal chest tubes drained 200 mL output in the last 8 hours and 400 mL output since surgery. Left pleural chest tube drained 105 mL output in the last 8 hours and 190 mL output since surgery. Laboratory and chest x-ray results were reviewed. Objective - Vital Signs Vital signs: Vital Signs Temp 99.5 F 03/31/24 07:45 Pulse 69 03/31/24 08:37 Resp 17 03/31/24 08:15 BP 130/66 03/31/24 08:15 Pulse Ox 95 03/31/24 08:23 FiO2 60 03/31/24 03:54 Intake & Output 03/30/24 03/31/24 03/31/24 18:59 06:59 18:59 Intake Total 011.564 8842.075 742.116 Output Total 1354 1226 204 Balance -557.924 829.075 538.116 Weight 142.6 kg Intake: IV 567 1158 218 ACETAMINOPHEN IV (For NPO 100 200 100 ) 1,000 mg In Empty Bag 1 bag @ 400 mls/hr IVPB Q6HR INDIGO Rx#:[id number] CO/CI 70 150 Pressure Bags 45 108 18 Sodium Chloride 0.9% 1, 250 600 100 000 ml @ 50 mls/hr IV . Q20H INDIGO Rx#:[id number] ceFAZolin 3 gm In Sodium 100 100 Chloride 0.9% 100 ml @ 100 mls/hr IVPB Q8HR INDIGO Rx#:[id number] Intake, IV Titration 229.076 547.075 44.116 Amount Amiodarone 450 mg In 227.782 Dextrose 5% in Water 250 ml @ 0.5 MG/MIN 16.667 mls/hr IV .Q15H PRN Rx#: [id number] Clevidipine Butyrate 25 57.901 265.334 27.4 mg In Empty Bag 1 bag @ 1 MG/HR 2 mls/hr IV .Q24H INDIGO Rx#:[id number] Dexmedetomidine/0.9% NaCl 46.324 (Pmx) 400 mcg In Empty Bag 1 bag @ Titrate IV . Q0M INDIGO Rx#:[id number] Insulin Regular 100 unit 13.181 53.959 16.716 In Sodium Chloride 0.9% 100 ml @ Per Protocol IV .Q0M INDIGO Rx#:[id number] propofoL 1,000 mg In 111.670 Empty Bag 1 bag @ Titrate IV .Q0M INDIGO Rx#: [id number] Oral 350 480 Output: Chest Tube Drainage 164 426 54 Left Pleural/Mediastinal 58 132 14 Mediastinal 106 294 40 Gastric Drainage 150 Urine 540 800 150 Estimated Blood Loss 500 Other: Voiding Method Indwelling Catheter Indwelling Catheter ABP, PAP, CO, CI - Last Documented Arterial Blood Pressure 161/52 Pulmonary Artery Pressure 39/17 Cardiac Output 7.5 Cardiac Index 2.9 - Exam CONSTITUTIONAL: Sitting up to the bedside chair in the intensive care unit, appears comfortable, cooperative, no apparent acute distress. HEENT: Neck is supple, no JVD, no lymphadenopathy. Right IJ Cordis and [place]- Karen catheter in place and functioning. RESPIRATORY: Lungs sounds essentially clear throughout, diminished to his bilateral bases. Respirations are symmetrical and nonlabored. Currently on 2 L nasal cannula with oxygen saturations 94%. Able to achieve 1000 mL on his incentive spirometry. Strong cough. CARDIOVASCULAR: Regular rhythm and rate. S1 and S2 present, negative for S3, g allop or murmur. Sternum is stable. Palpable peripheral pulses bilaterally. No calf pain or tenderness noted. Heart hugger in place with patient demonstrating appropriate use. Knee-high LAURENCE hose and sequential compression devices in place to his bilateral lower extremities. GASTROINTESTINAL: Abdomen soft, nontender, nondistended. Hypoactive bowel sounds present 4 quadrants. Tolerating diet. Passing flatus. No guarding or rigidity. GENITOURINARY: Dillon present draining clear, yellow urine. Urine output 505 mL in the last 8 hours. INTEGUMENTARY: Skin is warm and dry with no evidence of clubbing or cyanosis. Midline sternal incision clean dry and well approximated, covered with dry intact dressing. NEUROLOGIC: Cranial nerves II through XII intact. No focal deficits. MUSKULOSKELETAL: Able to move all extremities, strength equal bilaterally, generalized weakness. PSYCHIATRIC: Alert and oriented to person place and time, appropriate affect, intact judgment and insight. INVASIVE LINES AND TUBES: Mediastinal/left pleural chest tubes present and connected to low continuous wall suction, no air leaks present. Mediastinal tubes with 200 mL of thin serosanguineous drainage overnight, 400 mL output in the last 24 hours. Left pleural chest tube with 105 mL of thin serosanguineous drainage overnight, 190 mL output in the last 24 hours. Atrial and ventricular epicardial pacemaker wires present, connected to generator, VVI backup rate 60 bpm. Right internal jugular [place]/Cordis, right radial arterial line present. Last CO 7.5, CI 2.9, PA 42/18 and CVP 13 mmHg. - Allied health notes Allied health notes reviewed: nursing - Labs CBC & Chem 7: 03/31/24 04:00 03/31/24 04:00 Labs: Abnormal Lab Results - Last 24 Hours (Table) 03/21/24 03/30/24 03/30/24 Range/Units 09:09 08:40 09:22 WBC (3.8-10.6) k/uL RBC (4.30-5.90) m/uL Hgb (13.0-17.5) gm/dL Hct (39.0-53.0) % Plt Count (150-450) k/uL Neutrophils # (1.3-7.7) k/uL Lymphocytes # (1.0-4.8) k/uL Monocytes # (0-1.0) k/uL APTT (22.0-30.0) sec ABG pH 7.33 L 7.34 L (7.35-7.45) ABG pCO2 47 H (35-45) mmHg ABG pO2 395 H >420 H (83-108) mmHg ABG Total CO2 (19-24) mmol/L ABG O2 Saturation >99.4 H >99.4 H (94-97) % ABG Hematocrit (34.0-46.0) % ABG Potassium (3.4-4.5) mmol/L ABG Ionized Calcium (4.5-5.3) mg/dL ABG Glucose 118 H 114 H (75-99) mg/dL Hemoglobin 12.3 L 10.9 L (13.0-17.5) gm/dL Sodium (137-145) mmol/L Chloride (98-107) mmol/L Carbon Dioxide (22-30) mmol/L Glucose (74-99) mg/dL POC Glucose (mg/dL) (70-110) mg/dL Calcium (8.4-10.2) mg/dL Magnesium (1.6-2.3) mg/dL Total Protein (6.3-8.2) g/dL Arterial Blood Potassium (3.4-4.5) mmol/L Arterial Blood Glucose 118 H 114 H (75-99) mg/dL Crossmatch See Detail 03/30/24 03/30/24 03/30/24 Range/Units 09:53 10:15 12:47 WBC 13.5 H (3.8-10.6) k/uL RBC 3.75 L (4.30-5.90) m/uL Hgb 11.8 L D (13.0-17.5) gm/dL Hct 34.5 L (39.0-53.0) % Plt Count 129 L (150-450) k/uL Neutrophils # 11.0 H (1.3-7.7) k/uL Lymphocytes # (1.0-4.8) k/uL Monocytes # (0-1.0) k/uL APTT (22.0-30.0) sec ABG pH 7.34 L 7.32 L (7.35-7.45) ABG pCO2 47 H (35-45) mmHg ABG pO2 >420 H 374 H (83-108) mmHg ABG Total CO2 (19-24) mmol/L ABG O2 Saturation 99.4 H 99.3 H (94-97) % ABG Hematocrit 24 L 28 L (34.0-46.0) % ABG Potassium 4.8 H 4.8 H (3.4-4.5) mmol/L ABG Ionized Calcium 4.3 L 4.4 L (4.5-5.3) mg/dL ABG Glucose 113 H 125 H (75-99) mg/dL Hemoglobin 7.8 L 9.1 L (13.0-17.5) gm/dL Sodium (137-145) mmol/L Chloride (98-107) mmol/L Carbon Dioxide (22-30) mmol/L Glucose (74-99) mg/dL POC Glucose (mg/dL) (70-110) mg/dL Calcium (8.4-10.2) mg/dL Magnesium (1.6-2.3) mg/dL Total Protein (6.3-8.2) g/dL Arterial Blood Potassium 4.8 H 4.8 H (3.4-4.5) mmol/L Arterial Blood Glucose 113 H 125 H (75-99) mg/dL Crossmatch 03/30/24 03/30/24 03/30/24 Range/Units 12:47 12:47 12:50 WBC (3.8-10.6) k/uL RBC (4.30-5.90) m/uL Hgb (13.0-17.5) gm/dL Hct (39.0-53.0) % Plt Count (150-450) k/uL Neutrophils # (1.3-7.7) k/uL Lymphocytes # (1.0-4.8) k/uL Monocytes # (0-1.0) k/uL APTT 33.2 H (22.0-30.0) sec ABG pH (7.35-7.45) ABG pCO2 (35-45) mmHg ABG pO2 (83-108) mmHg ABG Total CO2 (19-24) mmol/L ABG O2 Saturation (94-97) % ABG Hematocrit (34.0-46.0) % ABG Potassium (3.4-4.5) mmol/L ABG Ionized Calcium (4.5-5.3) mg/dL ABG Glucose (75-99) mg/dL Hemoglobin (13.0-17.5) gm/dL Sodium (137-145) mmol/L Chloride 113 H (98-107) mmol/L Carbon Dioxide (22-30) mmol/L Glucose 123 H (74-99) mg/dL POC Glucose (mg/dL) 134 H (70-110) mg/dL Calcium 8.1 L (8.4-10.2) mg/dL Magnesium 3.2 H (1.6-2.3) mg/dL Total Protein 5.6 L (6.3-8.2) g/dL Arterial Blood Potassium (3.4-4.5) mmol/L Arterial Blood Glucose (75-99) mg/dL Crossmatch 03/30/24 03/30/24 03/30/24 Range/Units 12:54 15:20 15:59 WBC (3.8-10.6) k/uL RBC (4.30-5.90) m/uL Hgb (13.0-17.5) gm/dL Hct (39.0-53.0) % Plt Count (150-450) k/uL Neutrophils # (1.3-7.7) k/uL Lymphocytes # (1.0-4.8) k/uL Monocytes # (0-1.0) k/uL APTT (22.0-30.0) sec ABG pH 7.28 L (7.35-7.45) ABG pCO2 53 H (35-45) mmHg ABG pO2 115 H (83-108) mmHg ABG Total CO2 26 H (19-24) mmol/L ABG O2 Saturation 98.1 H (94-97) % ABG Hematocrit (34.0-46.0) % ABG Potassium (3.4-4.5) mmol/L ABG Ionized Calcium (4.5-5.3) mg/dL ABG Glucose (75-99) mg/dL Hemoglobin 11.6 L (13.0-17.5) gm/dL Sodium (137-145) mmol/L Chloride (98-107) mmol/L Carbon Dioxide (22-30) mmol/L Glucose (74-99) mg/dL POC Glucose (mg/dL) 145 H 160 H (70-110) mg/dL Calcium (8.4-10.2) mg/dL Magnesium (1.6-2.3) mg/dL Total Protein (6.3-8.2) g/dL Arterial Blood Potassium (3.4-4.5) mmol/L Arterial Blood Glucose (75-99) mg/dL Crossmatch 03/30/24 03/30/24 03/30/24 Range/Units 16:00 17:17 17:57 WBC 16.6 H (3.8-10.6) k/uL RBC 4.12 L (4.30-5.90) m/uL Hgb 12.8 L (13.0-17.5) gm/dL Hct 37.8 L (39.0-53.0) % Plt Count (150-450) k/uL Neutrophils # 13.5 H (1.3-7.7) k/uL Lymphocytes # (1.0-4.8) k/uL Monocytes # 1.1 H (0-1.0) k/uL APTT (22.0-30.0) sec ABG pH (7.35-7.45) ABG pCO2 (35-45) mmHg ABG pO2 65 L (83-108) mmHg ABG Total CO2 (19-24) mmol/L ABG O2 Saturation 92.8 L (94-97) % ABG Hematocrit (34.0-46.0) % ABG Potassium (3.4-4.5) mmol/L ABG Ionized Calcium (4.5-5.3) mg/dL ABG Glucose (75-99) mg/dL Hemoglobin 12.6 L (13.0-17.5) gm/dL Sodium (137-145) mmol/L Chloride (98-107) mmol/L Carbon Dioxide (22-30) mmol/L Glucose (74-99) mg/dL POC Glucose (mg/dL) 152 H (70-110) mg/dL Calcium (8.4-10.2) mg/dL Magnesium (1.6-2.3) mg/dL Total Protein (6.3-8.2) g/dL Arterial Blood Potassium (3.4-4.5) mmol/L Arterial Blood Glucose (75-99) mg/dL Crossmatch 03/30/24 03/30/24 03/30/24 Range/Units 18:20 18:48 18:48 WBC 12.3 H (3.8-10.6) k/uL RBC 4.00 L (4.30-5.90) m/uL Hgb 12.4 L (13.0-17.5) gm/dL Hct 37.2 L (39.0-53.0) % Plt Count 146 L (150-450) k/uL Neutrophils # 10.6 H (1.3-7.7) k/uL Lymphocytes # 0.8 L (1.0-4.8) k/uL Monocytes # (0-1.0) k/uL APTT (22.0-30.0) sec ABG pH (7.35-7.45) ABG pCO2 (35-45) mmHg ABG pO2 (83-108) mmHg ABG Total CO2 (19-24) mmol/L ABG O2 Saturation (94-97) % ABG Hematocrit (34.0-46.0) % ABG Potassium (3.4-4.5) mmol/L ABG Ionized Calcium (4.5-5.3) mg/dL ABG Glucose (75-99) mg/dL Hemoglobin (13.0-17.5) gm/dL Sodium (137-145) mmol/L Chloride (98-107) mmol/L Carbon Dioxide (22-30) mmol/L Glucose (74-99) mg/dL POC Glucose (mg/dL) 151 H 147 H (70-110) mg/dL Calcium (8.4-10.2) mg/dL Magnesium (1.6-2.3) mg/dL Total Protein (6.3-8.2) g/dL Arterial Blood Potassium (3.4-4.5) mmol/L Arterial Blood Glucose (75-99) mg/dL Crossmatch 03/30/24 03/30/24 03/30/24 Range/Units 19:47 21:09 22:07 WBC (3.8-10.6) k/uL RBC (4.30-5.90) m/uL Hgb (13.0-17.5) gm/dL Hct (39.0-53.0) % Plt Count (150-450) k/uL Neutrophils # (1.3-7.7) k/uL Lymphocytes # (1.0-4.8) k/uL Monocytes # (0-1.0) k/uL APTT (22.0-30.0) sec ABG pH (7.35-7.45) ABG pCO2 (35-45) mmHg ABG pO2 (83-108) mmHg ABG Total CO2 (19-24) mmol/L ABG O2 Saturation (94-97) % ABG Hematocrit (34.0-46.0) % ABG Potassium (3.4-4.5) mmol/L ABG Ionized Calcium (4.5-5.3) mg/dL ABG Glucose (75-99) mg/dL Hemoglobin (13.0-17.5) gm/dL Sodium (137-145) mmol/L Chloride (98-107) mmol/L Carbon Dioxide (22-30) mmol/L Glucose (74-99) mg/dL POC Glucose (mg/dL) 137 H 124 H 131 H (70-110) mg/dL Calcium (8.4-10.2) mg/dL Magnesium (1.6-2.3) mg/dL Total Protein (6.3-8.2) g/dL Arterial Blood Potassium (3.4-4.5) mmol/L Arterial Blood Glucose (75-99) mg/dL Crossmatch 03/30/24 03/30/24 03/31/24 Range/Units 22:59 23:59 01:09 WBC (3.8-10.6) k/uL RBC (4.30-5.90) m/uL Hgb (13.0-17.5) gm/dL Hct (39.0-53.0) % Plt Count (150-450) k/uL Neutrophils # (1.3-7.7) k/uL Lymphocytes # (1.0-4.8) k/uL Monocytes # (0-1.0) k/uL APTT (22.0-30.0) sec ABG pH (7.35-7.45) ABG pCO2 (35-45) mmHg ABG pO2 (83-108) mmHg ABG Total CO2 (19-24) mmol/L ABG O2 Saturation (94-97) % ABG Hematocrit (34.0-46.0) % ABG Potassium (3.4-4.5) mmol/L ABG Ionized Calcium (4.5-5.3) mg/dL ABG Glucose (75-99) mg/dL Hemoglobin (13.0-17.5) gm/dL Sodium (137-145) mmol/L Chloride (98-107) mmol/L Carbon Dioxide (22-30) mmol/L Glucose (74-99) mg/dL POC Glucose (mg/dL) 130 H 139 H 134 H (70-110) mg/dL Calcium (8.4-10.2) mg/dL Magnesium (1.6-2.3) mg/dL Total Protein (6.3-8.2) g/dL Arterial Blood Potassium (3.4-4.5) mmol/L Arterial Blood Glucose (75-99) mg/dL Crossmatch 03/31/24 03/31/24 03/31/24 Range/Units 02:05 03:11 04:00 WBC 16.5 H (3.8-10.6) k/uL RBC 4.07 L (4.30-5.90) m/uL Hgb 12.7 L (13.0-17.5) gm/dL Hct 37.7 L (39.0-53.0) % Plt Count (150-450) k/uL Neutrophils # 14.1 H (1.3-7.7) k/uL Lymphocytes # 0.9 L (1.0-4.8) k/uL Monocytes # 1.2 H (0-1.0) k/uL APTT (22.0-30.0) sec ABG pH (7.35-7.45) ABG pCO2 (35-45) mmHg ABG pO2 (83-108) mmHg ABG Total CO2 (19-24) mmol/L ABG O2 Saturation (94-97) % ABG Hematocrit (34.0-46.0) % ABG Potassium (3.4-4.5) mmol/L ABG Ionized Calcium (4.5-5.3) mg/dL ABG Glucose (75-99) mg/dL Hemoglobin (13.0-17.5) gm/dL Sodium (137-145) mmol/L Chloride (98-107) mmol/L Carbon Dioxide (22-30) mmol/L Glucose (74-99) mg/dL POC Glucose (mg/dL) 131 H 121 H (70-110) mg/dL Calcium (8.4-10.2) mg/dL Magnesium (1.6-2.3) mg/dL Total Protein (6.3-8.2) g/dL Arterial Blood Potassium (3.4-4.5) mmol/L Arterial Blood Glucose (75-99) mg/dL Crossmatch 03/31/24 03/31/24 03/31/24 Range/Units 04:00 04:02 06:09 WBC (3.8-10.6) k/uL RBC (4.30-5.90) m/uL Hgb (13.0-17.5) gm/dL Hct (39.0-53.0) % Plt Count (150-450) k/uL Neutrophils # (1.3-7.7) k/uL Lymphocytes # (1.0-4.8) k/uL Monocytes # (0-1.0) k/uL APTT (22.0-30.0) sec ABG pH (7.35-7.45) ABG pCO2 (35-45) mmHg ABG pO2 (83-108) mmHg ABG Total CO2 (19-24) mmol/L ABG O2 Saturation (94-97) % ABG Hematocrit (34.0-46.0) % ABG Potassium (3.4-4.5) mmol/L ABG Ionized Calcium (4.5-5.3) mg/dL ABG Glucose (75-99) mg/dL Hemoglobin (13.0-17.5) gm/dL Sodium 136 L (137-145) mmol/L Chloride 111 H (98-107) mmol/L Carbon Dioxide 21 L (22-30) mmol/L Glucose 111 H (74-99) mg/dL POC Glucose (mg/dL) 125 H 136 H (70-110) mg/dL Calcium 8.2 L (8.4-10.2) mg/dL Magnesium 2.6 H (1.6-2.3) mg/dL Total Protein 6.0 L (6.3-8.2) g/dL Arterial Blood Potassium (3.4-4.5) mmol/L Arterial Blood Glucose (75-99) mg/dL Crossmatch 03/31/24 03/31/24 03/31/24 Range/Units 07:08 07:56 09:00 WBC (3.8-10.6) k/uL RBC (4.30-5.90) m/uL Hgb (13.0-17.5) gm/dL Hct (39.0-53.0) % Plt Count (150-450) k/uL Neutrophils # (1.3-7.7) k/uL Lymphocytes # (1.0-4.8) k/uL Monocytes # (0-1.0) k/uL APTT (22.0-30.0) sec ABG pH (7.35-7.45) ABG pCO2 (35-45) mmHg ABG pO2 (83-108) mmHg ABG Total CO2 (19-24) mmol/L ABG O2 Saturation (94-97) % ABG Hematocrit (34.0-46.0) % ABG Potassium (3.4-4.5) mmol/L ABG Ionized Calcium (4.5-5.3) mg/dL ABG Glucose (75-99) mg/dL Hemoglobin (13.0-17.5) gm/dL Sodium (137-145) mmol/L Chloride (98-107) mmol/L Carbon Dioxide (22-30) mmol/L Glucose (74-99) mg/dL POC Glucose (mg/dL) 129 H 245 H 200 H (70-110) mg/dL Calcium (8.4-10.2) mg/dL Magnesium (1.6-2.3) mg/dL Total Protein (6.3-8.2) g/dL Arterial Blood Potassium (3.4-4.5) mmol/L Arterial Blood Glucose (75-99) mg/dL Crossmatch - Imaging and Cardiology Chest x-ray: report reviewed, image reviewed Assessment and Plan Assessment: Symptomatic severe calcific aortic stenosis, status post aortic valve replacem ent with 27 mm Inspiris Resilia bovine pericardial valve History of hypertension Hyperlipidemia Diabetes mellitus type 2 with a preoperative hemoglobin A1c 5.9% History of coronary artery disease status post PCI to the right coronary artery and left circumflex coronary artery Remote history of nicotine dependence quit smoking in 2017, preoperative FEV1 78% of predicted value Postoperative acute blood loss anemia, expected given hemodilution and cardiopulmonary bypass Plan: Continue to maximize medical therapy with aspirin, statin, Plavix, and beta- polly. Will increase beta-polly therapy as tolerated, currently on home dose of Coreg 6.25 mg p.o. twice daily. 200 mg p.o. twice daily in place for atrial fibrillation prophylaxis. Wean O2 as tolerated. Encourage incentive spirometry use 10 times every hour while awake. Bronchodilators per pulmonology. Increase activity, ambulate as tolerated. PT/OT/cardiac rehab consulted. Will monitor daily labs and chest x-rays. Electrolyte replacement per protocol. GI/DVT prophylaxis. Pain control per current medication regimen. Toradol 15 mg every 6 hours added for additional pain control. Insulin management per internal medicine, preoperative hemoglobin A1c 5.9%. Patient should remain on continuous IV insulin for 48 hours then may transition to subcutaneous per protocol. Discontinue [place], connect Cordis to continuous CVP monitoring. Keep mediastinal and left pleural chest tubes for another 24 hours, monitor output. Continue Dillon catheter for another 24 hours, continue to monitor and record strict accurate intake and output. Daily weights. Losartan 50 mg p.o. daily added for blood pressure control and wean Cleviprex as tolerated. Amiodarone More recommendations to follow based on patient's clinical course. Time with Patient: Greater than 30
[2024-03-31 11:54] LABS: Glucose,Whole Blood 113 mg/dL (70-110)
[2024-03-31 11:59] VITALS: BMI 41.4
[2024-03-31 12:54] LABS: Glucose,Whole Blood 149 mg/dL (70-110)
[2024-03-31] MEDS ORDERED: ACETAMINOPHEN TAB 325 MG TAB PO PRN (13:00)
--- NOTE | 2024-03-31 13:20 | P.PN ---
Subjective Progress Note Date: 03/31/24 69-year-old male patient, currently being seen in the intensive care and following an aortic valve replacement surgery. The patient underwent an AVR postop, the patient was brought into the intensive care unit for further evaluation and treatment. The patient also is known to have coronary artery disease. The patient underwent cardiac catheterization on 03/06/2024 and the patient had patent stents to RCA and circumflex. Previous GAMA showed a preserved LV function with severe aortic valve stenosis and based on that the patient underwent a surgical valve replacement. Surgery was done and estimated blood loss was 500 cc. At this point in time, the patient is intubated on the mechanical ventilator. The patient is on propofol which is running at 25 mcg/kg/min. The patient is getting a normal sinus rhythm at a rate of 65. Intraoperatively, the patient was atrially paced and currently he has intrinsic rhythm. He is hypertensive on Cleviprex drip for blood pressure control which is running at 8 mg an hour. Most recent cardiac output is 6.2 with an index of 2.4. PA pressures of 37/70. CVP is 10. The patient remains on assist-control mode of mechanical vent at rate of 12, tidal volume of 550, FiO2 of 100% with a PEEP of 10. The blood gas showed a pH of 7.28 with a pCO2 of 53 and pO2 of 115 and a chest x-ray showed adequate expansion of both lungs. No evidence of any pneumothorax. The patient has a left pleural mediastinal chest tube in place. Orotracheal tube is in a good location. No consolidation. No airspace disease. Crawford-Karen catheter is in a good location. Output from the chest tubes has been 100 from the left pleural and 70 from the mediastinal chest tube since arrival from the operating room. Excellent urine output for now. Remains on amiodarone 0.5 mg/min as maintenance. Afebrile. On 03/31/2024, the patient is being seen for a follow-up. The patient is postop day #1 following a aortic valve replacement. Patient sitting up in a chair and the patient is calm and comfortable. Hemodynamically stable. The patient was weaned off the mechanical ventilator and the patient was extubated without any major difficulties and the patient is currently using incentive spirometer. He is currently on 2 L of O2 nasal cannula. Cardiac output is at 7.5 with an index of 2.9. PA pressures are 42/18. The CVP is currently at 13. Remains on Cleviprex drip which is running at 5 mg an hour. Remains on amiodarone drip at 0.5 mg/min and the patient is also on insulin drip at 4.5 units an hour. Chest tubes are also in place. Output from the chest has been noted and the mediastinal chest tube produced 300 cc over the past 8 hours) over the past 24 hours. Left lower chest tube was produced 190 cc over the past 24 hours. As for the blood work, the patient's WBC count is at 16.5 anemia of 12.7 and platelet count of 159. Electrolytes are normal. BUN is 40 with a creatinine of 0.7. Chest x-ray was noted from today and it shows no acute abnormalities. Mild pleural effusion. No evidence of a pneumothorax. Chest tubes are in place. The tube is not removed. No other significant events overnight. Mentation is adequate and the patient is alert and awake and communicating. Objective - Vital Signs Vital signs: Vital Signs Temp 101.7 F H 03/31/24 04:00 Pulse 70 03/31/24 07:00 Resp 15 03/31/24 07:00 BP 130/53 03/31/24 07:00 Pulse Ox 94 L 03/31/24 07:00 FiO2 60 03/31/24 03:54 Intake & Output 03/30/24 03/31/24 03/31/24 18:59 06:59 18:59 Intake Total 001.675 3512.075 173.693 Output Total 1354 1226 99 Balance -557.924 829.075 74.693 Weight 142.6 kg Intake: IV 567 1158 159 ACETAMINOPHEN IV (For NPO 100 200 100 ) 1,000 mg In Empty Bag 1 bag @ 400 mls/hr IVPB Q6HR INDIGO Rx#:[id number] CO/CI 70 150 Pressure Bags 45 108 9 Sodium Chloride 0.9% 1, 250 600 50 000 ml @ 50 mls/hr IV . Q20H INDIGO Rx#:[id number] ceFAZolin 3 gm In Sodium 100 100 Chloride 0.9% 100 ml @ 100 mls/hr IVPB Q8HR INDIGO Rx#:[id number] Intake, IV Titration 229.076 547.075 14.693 Amount Amiodarone 450 mg In 227.782 Dextrose 5% in Water 250 ml @ 0.5 MG/MIN 16.667 mls/hr IV .Q15H PRN Rx#: [id number] Clevidipine Butyrate 25 57.901 265.334 10.4 mg In Empty Bag 1 bag @ 1 MG/HR 2 mls/hr IV .Q24H INDIGO Rx#:[id number] Dexmedetomidine/0.9% NaCl 46.324 (Pmx) 400 mcg In Empty Bag 1 bag @ Titrate IV . Q0M INDIGO Rx#:[id number] Insulin Regular 100 unit 13.181 53.959 4.293 In Sodium Chloride 0.9% 100 ml @ Per Protocol IV .Q0M INDIGO Rx#:[id number] propofoL 1,000 mg In 111.670 Empty Bag 1 bag @ Titrate IV .Q0M INDIGO Rx#: [id number] Oral 350 Output: Chest Tube Drainage 164 426 24 Left Pleural/Mediastinal 58 132 4 Mediastinal 106 294 20 Gastric Drainage 150 Urine 540 800 75 Estimated Blood Loss 500 Other: Voiding Method Indwelling Catheter Indwelling Catheter ABP, PAP, CO, CI - Last Documented Arterial Blood Pressure 159/53 Pulmonary Artery Pressure 39/18 Cardiac Output 7.5 Cardiac Index 2.9 - Exam General Appearance the patient is calm and comfortable, no acute distress. The patient is currently on 2 L of oxygen by nasal cannula Head exam was generally normal. There was no scleral icterus or corneal arcus. Mucous membranes were moist. Neck was supple and without jugular venous distension, thyromegaly, or carotid bruits. Carotids were easily palpable bilaterally. There was no adenopathy. The patient has a right IJ Crawford-Karen catheter in place. Lung sounds are diminished bilaterally. The surgical wound site is dry clean and intact and the patient has a left pleural and mediastinal chest tube in place. Cardiac exam revealed the PMI to be normally situated and sized. The rhythm was regular and no extrasystoles were noted during several minutes of auscultation. The first and second heart sounds were normal and physiologic splitting of the second heart sound was noted. There were no murmurs, rubs, clicks, or gallops. Abdominal exam revealed normal bowel sounds. The abdomen was soft, non-tender, and without masses, organomegaly, or appreciable enlargement of the abdominal aorta. Examination of the extremities revealed easily palpable radial, femoral and pedal pulses. There was no cyanosis, clubbing or edema. Examination of the skin revealed no evidence of significant rashes, suspicious appearing nevi or other concerning lesions. Neurologically, the patient is awake and alert and the patient does not have any focal neurological deficit. Cranial nerves are essentially intact. - Labs CBC & Chem 7: 03/31/24 04:00 03/31/24 04:00 Labs: Abnormal Lab Results - Last 24 Hours (Table) 03/21/24 03/30/24 03/30/24 Range/Units 09:09 08:40 09:22 WBC (3.8-10.6) k/uL RBC (4.30-5.90) m/uL Hgb (13.0-17.5) gm/dL Hct (39.0-53.0) % Plt Count (150-450) k/uL Neutrophils # (1.3-7.7) k/uL Lymphocytes # (1.0-4.8) k/uL Monocytes # (0-1.0) k/uL APTT (22.0-30.0) sec ABG pH 7.33 L 7.34 L (7.35-7.45) ABG pCO2 47 H (35-45) mmHg ABG pO2 395 H >420 H (83-108) mmHg ABG Total CO2 (19-24) mmol/L ABG O2 Saturation >99.4 H >99.4 H (94-97) % ABG Hematocrit (34.0-46.0) % ABG Potassium (3.4-4.5) mmol/L ABG Ionized Calcium (4.5-5.3) mg/dL ABG Glucose 118 H 114 H (75-99) mg/dL Hemoglobin 12.3 L 10.9 L (13.0-17.5) gm/dL Sodium (137-145) mmol/L Chloride (98-107) mmol/L Carbon Dioxide (22-30) mmol/L Glucose (74-99) mg/dL POC Glucose (mg/dL) (70-110) mg/dL Calcium (8.4-10.2) mg/dL Magnesium (1.6-2.3) mg/dL Total Protein (6.3-8.2) g/dL Arterial Blood Potassium (3.4-4.5) mmol/L Arterial Blood Glucose 118 H 114 H (75-99) mg/dL Crossmatch See Detail 03/30/24 03/30/24 03/30/24 Range/Units 09:53 10:15 12:47 WBC 13.5 H (3.8-10.6) k/uL RBC 3.75 L (4.30-5.90) m/uL Hgb 11.8 L D (13.0-17.5) gm/dL Hct 34.5 L (39.0-53.0) % Plt Count 129 L (150-450) k/uL Neutrophils # 11.0 H (1.3-7.7) k/uL Lymphocytes # (1.0-4.8) k/uL Monocytes # (0-1.0) k/uL APTT (22.0-30.0) sec ABG pH 7.34 L 7.32 L (7.35-7.45) ABG pCO2 47 H (35-45) mmHg ABG pO2 >420 H 374 H (83-108) mmHg ABG Total CO2 (19-24) mmol/L ABG O2 Saturation 99.4 H 99.3 H (94-97) % ABG Hematocrit 24 L 28 L (34.0-46.0) % ABG Potassium 4.8 H 4.8 H (3.4-4.5) mmol/L ABG Ionized Calcium 4.3 L 4.4 L (4.5-5.3) mg/dL ABG Glucose 113 H 125 H (75-99) mg/dL Hemoglobin 7.8 L 9.1 L (13.0-17.5) gm/dL Sodium (137-145) mmol/L Chloride (98-107) mmol/L Carbon Dioxide (22-30) mmol/L Glucose (74-99) mg/dL POC Glucose (mg/dL) (70-110) mg/dL Calcium (8.4-10.2) mg/dL Magnesium (1.6-2.3) mg/dL Total Protein (6.3-8.2) g/dL Arterial Blood Potassium 4.8 H 4.8 H (3.4-4.5) mmol/L Arterial Blood Glucose 113 H 125 H (75-99) mg/dL Crossmatch 03/30/24 03/30/24 03/30/24 Range/Units 12:47 12:47 12:50 WBC (3.8-10.6) k/uL RBC (4.30-5.90) m/uL Hgb (13.0-17.5) gm/dL Hct (39.0-53.0) % Plt Count (150-450) k/uL Neutrophils # (1.3-7.7) k/uL Lymphocytes # (1.0-4.8) k/uL Monocytes # (0-1.0) k/uL APTT 33.2 H (22.0-30.0) sec ABG pH (7.35-7.45) ABG pCO2 (35-45) mmHg ABG pO2 (83-108) mmHg ABG Total CO2 (19-24) mmol/L ABG O2 Saturation (94-97) % ABG Hematocrit (34.0-46.0) % ABG Potassium (3.4-4.5) mmol/L ABG Ionized Calcium (4.5-5.3) mg/dL ABG Glucose (75-99) mg/dL Hemoglobin (13.0-17.5) gm/dL Sodium (137-145) mmol/L Chloride 113 H (98-107) mmol/L Carbon Dioxide (22-30) mmol/L Glucose 123 H (74-99) mg/dL POC Glucose (mg/dL) 134 H (70-110) mg/dL Calcium 8.1 L (8.4-10.2) mg/dL Magnesium 3.2 H (1.6-2.3) mg/dL Total Protein 5.6 L (6.3-8.2) g/dL Arterial Blood Potassium (3.4-4.5) mmol/L Arterial Blood Glucose (75-99) mg/dL Crossmatch 03/30/24 03/30/24 03/30/24 Range/Units 12:54 15:20 15:59 WBC (3.8-10.6) k/uL RBC (4.30-5.90) m/uL Hgb (13.0-17.5) gm/dL Hct (39.0-53.0) % Plt Count (150-450) k/uL Neutrophils # (1.3-7.7) k/uL Lymphocytes # (1.0-4.8) k/uL Monocytes # (0-1.0) k/uL APTT (22.0-30.0) sec ABG pH 7.28 L (7.35-7.45) ABG pCO2 53 H (35-45) mmHg ABG pO2 115 H (83-108) mmHg ABG Total CO2 26 H (19-24) mmol/L ABG O2 Saturation 98.1 H (94-97) % ABG Hematocrit (34.0-46.0) % ABG Potassium (3.4-4.5) mmol/L ABG Ionized Calcium (4.5-5.3) mg/dL ABG Glucose (75-99) mg/dL Hemoglobin 11.6 L (13.0-17.5) gm/dL Sodium (137-145) mmol/L Chloride (98-107) mmol/L Carbon Dioxide (22-30) mmol/L Glucose (74-99) mg/dL POC Glucose (mg/dL) 145 H 160 H (70-110) mg/dL Calcium (8.4-10.2) mg/dL Magnesium (1.6-2.3) mg/dL Total Protein (6.3-8.2) g/dL Arterial Blood Potassium (3.4-4.5) mmol/L Arterial Blood Glucose (75-99) mg/dL Crossmatch 03/30/24 03/30/24 03/30/24 Range/Units 16:00 17:17 17:57 WBC 16.6 H (3.8-10.6) k/uL RBC 4.12 L (4.30-5.90) m/uL Hgb 12.8 L (13.0-17.5) gm/dL Hct 37.8 L (39.0-53.0) % Plt Count (150-450) k/uL Neutrophils # 13.5 H (1.3-7.7) k/uL Lymphocytes # (1.0-4.8) k/uL Monocytes # 1.1 H (0-1.0) k/uL APTT (22.0-30.0) sec ABG pH (7.35-7.45) ABG pCO2 (35-45) mmHg ABG pO2 65 L (83-108) mmHg ABG Total CO2 (19-24) mmol/L ABG O2 Saturation 92.8 L (94-97) % ABG Hematocrit (34.0-46.0) % ABG Potassium (3.4-4.5) mmol/L ABG Ionized Calcium (4.5-5.3) mg/dL ABG Glucose (75-99) mg/dL Hemoglobin 12.6 L (13.0-17.5) gm/dL Sodium (137-145) mmol/L Chloride (98-107) mmol/L Carbon Dioxide (22-30) mmol/L Glucose (74-99) mg/dL POC Glucose (mg/dL) 152 H (70-110) mg/dL Calcium (8.4-10.2) mg/dL Magnesium (1.6-2.3) mg/dL Total Protein (6.3-8.2) g/dL Arterial Blood Potassium (3.4-4.5) mmol/L Arterial Blood Glucose (75-99) mg/dL Crossmatch 03/30/24 03/30/24 03/30/24 Range/Units 18:20 18:48 18:48 WBC 12.3 H (3.8-10.6) k/uL RBC 4.00 L (4.30-5.90) m/uL Hgb 12.4 L (13.0-17.5) gm/dL Hct 37.2 L (39.0-53.0) % Plt Count 146 L (150-450) k/uL Neutrophils # 10.6 H (1.3-7.7) k/uL Lymphocytes # 0.8 L (1.0-4.8) k/uL Monocytes # (0-1.0) k/uL APTT (22.0-30.0) sec ABG pH (7.35-7.45) ABG pCO2 (35-45) mmHg ABG pO2 (83-108) mmHg ABG Total CO2 (19-24) mmol/L ABG O2 Saturation (94-97) % ABG Hematocrit (34.0-46.0) % ABG Potassium (3.4-4.5) mmol/L ABG Ionized Calcium (4.5-5.3) mg/dL ABG Glucose (75-99) mg/dL Hemoglobin (13.0-17.5) gm/dL Sodium (137-145) mmol/L Chloride (98-107) mmol/L Carbon Dioxide (22-30) mmol/L Glucose (74-99) mg/dL POC Glucose (mg/dL) 151 H 147 H (70-110) mg/dL Calcium (8.4-10.2) mg/dL Magnesium (1.6-2.3) mg/dL Total Protein (6.3-8.2) g/dL Arterial Blood Potassium (3.4-4.5) mmol/L Arterial Blood Glucose (75-99) mg/dL Crossmatch 03/30/24 03/30/24 03/30/24 Range/Units 19:47 21:09 22:07 WBC (3.8-10.6) k/uL RBC (4.30-5.90) m/uL Hgb (13.0-17.5) gm/dL Hct (39.0-53.0) % Plt Count (150-450) k/uL Neutrophils # (1.3-7.7) k/uL Lymphocytes # (1.0-4.8) k/uL Monocytes # (0-1.0) k/uL APTT (22.0-30.0) sec ABG pH (7.35-7.45) ABG pCO2 (35-45) mmHg ABG pO2 (83-108) mmHg ABG Total CO2 (19-24) mmol/L ABG O2 Saturation (94-97) % ABG Hematocrit (34.0-46.0) % ABG Potassium (3.4-4.5) mmol/L ABG Ionized Calcium (4.5-5.3) mg/dL ABG Glucose (75-99) mg/dL Hemoglobin (13.0-17.5) gm/dL Sodium (137-145) mmol/L Chloride (98-107) mmol/L Carbon Dioxide (22-30) mmol/L Glucose (74-99) mg/dL POC Glucose (mg/dL) 137 H 124 H 131 H (70-110) mg/dL Calcium (8.4-10.2) mg/dL Magnesium (1.6-2.3) mg/dL Total Protein (6.3-8.2) g/dL Arterial Blood Potassium (3.4-4.5) mmol/L Arterial Blood Glucose (75-99) mg/dL Crossmatch 03/30/24 03/30/24 03/31/24 Range/Units 22:59 23:59 01:09 WBC (3.8-10.6) k/uL RBC (4.30-5.90) m/uL Hgb (13.0-17.5) gm/dL Hct (39.0-53.0) % Plt Count (150-450) k/uL Neutrophils # (1.3-7.7) k/uL Lymphocytes # (1.0-4.8) k/uL Monocytes # (0-1.0) k/uL APTT (22.0-30.0) sec ABG pH (7.35-7.45) ABG pCO2 (35-45) mmHg ABG pO2 (83-108) mmHg ABG Total CO2 (19-24) mmol/L ABG O2 Saturation (94-97) % ABG Hematocrit (34.0-46.0) % ABG Potassium (3.4-4.5) mmol/L ABG Ionized Calcium (4.5-5.3) mg/dL ABG Glucose (75-99) mg/dL Hemoglobin (13.0-17.5) gm/dL Sodium (137-145) mmol/L Chloride (98-107) mmol/L Carbon Dioxide (22-30) mmol/L Glucose (74-99) mg/dL POC Glucose (mg/dL) 130 H 139 H 134 H (70-110) mg/dL Calcium (8.4-10.2) mg/dL Magnesium (1.6-2.3) mg/dL Total Protein (6.3-8.2) g/dL Arterial Blood Potassium (3.4-4.5) mmol/L Arterial Blood Glucose (75-99) mg/dL Crossmatch 03/31/24 03/31/24 03/31/24 Range/Units 02:05 03:11 04:00 WBC 16.5 H (3.8-10.6) k/uL RBC 4.07 L (4.30-5.90) m/uL Hgb 12.7 L (13.0-17.5) gm/dL Hct 37.7 L (39.0-53.0) % Plt Count (150-450) k/uL Neutrophils # 14.1 H (1.3-7.7) k/uL Lymphocytes # 0.9 L (1.0-4.8) k/uL Monocytes # 1.2 H (0-1.0) k/uL APTT (22.0-30.0) sec ABG pH (7.35-7.45) ABG pCO2 (35-45) mmHg ABG pO2 (83-108) mmHg ABG Total CO2 (19-24) mmol/L ABG O2 Saturation (94-97) % ABG Hematocrit (34.0-46.0) % ABG Potassium (3.4-4.5) mmol/L ABG Ionized Calcium (4.5-5.3) mg/dL ABG Glucose (75-99) mg/dL Hemoglobin (13.0-17.5) gm/dL Sodium (137-145) mmol/L Chloride (98-107) mmol/L Carbon Dioxide (22-30) mmol/L Glucose (74-99) mg/dL POC Glucose (mg/dL) 131 H 121 H (70-110) mg/dL Calcium (8.4-10.2) mg/dL Magnesium (1.6-2.3) mg/dL Total Protein (6.3-8.2) g/dL Arterial Blood Potassium (3.4-4.5) mmol/L Arterial Blood Glucose (75-99) mg/dL Crossmatch 03/31/24 03/31/24 03/31/24 Range/Units 04:00 04:02 06:09 WBC (3.8-10.6) k/uL RBC (4.30-5.90) m/uL Hgb (13.0-17.5) gm/dL Hct (39.0-53.0) % Plt Count (150-450) k/uL Neutrophils # (1.3-7.7) k/uL Lymphocytes # (1.0-4.8) k/uL Monocytes # (0-1.0) k/uL APTT (22.0-30.0) sec ABG pH (7.35-7.45) ABG pCO2 (35-45) mmHg ABG pO2 (83-108) mmHg ABG Total CO2 (19-24) mmol/L ABG O2 Saturation (94-97) % ABG Hematocrit (34.0-46.0) % ABG Potassium (3.4-4.5) mmol/L ABG Ionized Calcium (4.5-5.3) mg/dL ABG Glucose (75-99) mg/dL Hemoglobin (13.0-17.5) gm/dL Sodium 136 L (137-145) mmol/L Chloride 111 H (98-107) mmol/L Carbon Dioxide 21 L (22-30) mmol/L Glucose 111 H (74-99) mg/dL POC Glucose (mg/dL) 125 H 136 H (70-110) mg/dL Calcium 8.2 L (8.4-10.2) mg/dL Magnesium 2.6 H (1.6-2.3) mg/dL Total Protein 6.0 L (6.3-8.2) g/dL Arterial Blood Potassium (3.4-4.5) mmol/L Arterial Blood Glucose (75-99) mg/dL Crossmatch 03/31/24 03/31/24 Range/Units 07:08 07:56 WBC (3.8-10.6) k/uL RBC (4.30-5.90) m/uL Hgb (13.0-17.5) gm/dL Hct (39.0-53.0) % Plt Count (150-450) k/uL Neutrophils # (1.3-7.7) k/uL Lymphocytes # (1.0-4.8) k/uL Monocytes # (0-1.0) k/uL APTT (22.0-30.0) sec ABG pH (7.35-7.45) ABG pCO2 (35-45) mmHg ABG pO2 (83-108) mmHg ABG Total CO2 (19-24) mmol/L ABG O2 Saturation (94-97) % ABG Hematocrit (34.0-46.0) % ABG Potassium (3.4-4.5) mmol/L ABG Ionized Calcium (4.5-5.3) mg/dL ABG Glucose (75-99) mg/dL Hemoglobin (13.0-17.5) gm/dL Sodium (137-145) mmol/L Chloride (98-107) mmol/L Carbon Dioxide (22-30) mmol/L Glucose (74-99) mg/dL POC Glucose (mg/dL) 129 H 245 H (70-110) mg/dL Calcium (8.4-10.2) mg/dL Magnesium (1.6-2.3) mg/dL Total Protein (6.3-8.2) g/dL Arterial Blood Potassium (3.4-4.5) mmol/L Arterial Blood Glucose (75-99) mg/dL Crossmatch Assessment and Plan Plan: Severe aortic stenosis and the patient is status post aortic valve replacement, postop day #1. Remains intubated on mechanical ventilator. Hemodynamically stable. The patient is on no pressors. The patient remains on amiodarone drip for A-fib prophylaxis. Cardiac rhythm is sinus. Postthoracotomy, the patient has been extubated to nasal cannula. Chest tubes are still in place Hypertension with postop elevation in the blood pressure, currently on Cleviprex drip 5 mg an hour Coronary artery disease with previous non-ST segment elevation myocardial infarction. Cardiac catheterization from 03/06/2024 showed patent coronary stent to the circumflex and the RCA Hypertension Hyperlipidemia Peripheral vascular disease Obesity Former smoker Plan Continue pulmonary toileting and the patient is currently on 2 L of oxygen by nasal cannula monitor output from the chest tubes. Hemodynamically stable and the Crawford-Karen catheter can be removed Continue Cleviprex drip and the patient started on Coreg, losartan for blood pressure control. Continue insulin drip for blood sugar control currently running at 4.5 units an hour and this will be kept for another 24 hours Continue amiodarone and switch it to oral Cardiac rhythm is sinus Will continue to follow.
--- NOTE | 2024-03-31 13:36 | P.PN ---
Subjective Progress Note Date: 03/31/24 PROGRESS NOTE The patient is a 69-year-old male who was admitted today and underwent aortic valve replacement. He is intubated and sedated. He is followed on a regular basis with Dr. Mims and underwent cardiac catheterization on 06 March that revealed patent stents of the RCA and left circumflex. During the same admission he underwent a GAMA that showed a mean gradient 53 mmHg with a peak of 88 with normal ventricle systolic function and tricuspid aortic valve. He underwent a placement of a 27 mm Inspiris Resilia bovine pericardial valve with occlusion of the left atrial appendage. He is in sinus mechanism on no vasopressors, hemodynamically stable. Postsurgical intervention is mean gradie nt was 9 mmHg. His urine output is good. His coronaries factors are positive for hypertension, diabetes, hyperlipidemia March 31: The patient is feeling well, sitting up in the chair, extubated. Hemodynamically stable. He has some soreness in the chest but no dizziness or palpitation. He has no nausea or vomiting. He is tolerating p.o. He is using his incentive spirometry. Medications: Amiodarone 200 mg twice a day, aspirin once a day, Lipitor 80 mg daily, Plavix 75 mg daily, losartan 50 mg daily PHYSICAL EXAMINATION: Blood pressure 126/60 heart rate 60 LUNGS: Decreased breath sounds at the bases HEART: Regular rate and rhythm, S1, S2. No S3. Systolic ejection murmur ABDOMEN: Soft, nontender, no organomegaly EXTREMETIES: No edema LAB: Potassium 4.0, BUN 14, creatinine 0.71 IMPRESSION: 1. Status post aortic valve replacement 2. History of stenting of the RCA and the left circumflex, stable 3. History of hypertension 4. History of hyperlipidemia PLAN: 1. Continue present therapy 2. Follow heart rate and add beta-polly as tolerated 3. Increase physical activity 4. Depending on his progress further recommendations will be made Objective - Vital Signs Vital signs: Vital Signs Temp 99.7 F H 03/31/24 12:00 Pulse 62 03/31/24 13:15 Resp 17 03/31/24 13:15 BP 126/57 03/31/24 13:15 Pulse Ox 94 L 03/31/24 13:15 FiO2 60 03/31/24 03:54 Intake & Output 03/30/24 03/31/24 03/31/24 18:59 06:59 18:59 Intake Total 320.639 4548.075 1433.876 Output Total 1354 1226 429 Balance -557.924 335.173 4752.876 Weight 142.6 kg 142.6 kg Intake: IV 567 1158 533 ACETAMINOPHEN IV (For NPO 100 200 100 ) 1,000 mg In Empty Bag 1 bag @ 400 mls/hr IVPB Q6HR INDIGO Rx#:[id number] CO/CI 70 150 20 Pressure Bags 45 108 63 Sodium Chloride 0.9% 1, 250 600 350 000 ml @ 20 mls/hr IV . Q24H INDIGO Rx#:[id number] ceFAZolin 3 gm In Sodium 100 100 Chloride 0.9% 100 ml @ 100 mls/hr IVPB Q8HR INDIGO Rx#:[id number] Intake, IV Titration 229.076 547.075 60.876 Amount Amiodarone 450 mg In 227.782 Dextrose 5% in Water 250 ml @ 0.5 MG/MIN 16.667 mls/hr IV .Q15H PRN Rx#: [id number] Clevidipine Butyrate 25 57.901 265.334 29.767 mg In Empty Bag 1 bag @ 1 MG/HR 2 mls/hr IV .Q24H INDIGO Rx#:[id number] Dexmedetomidine/0.9% NaCl 46.324 (Pmx) 400 mcg In Empty Bag 1 bag @ Titrate IV . Q0M INDIGO Rx#:[id number] Insulin Regular 100 unit 13.181 53.959 31.109 In Sodium Chloride 0.9% 100 ml @ Per Protocol IV .Q0M INDIGO Rx#:[id number] propofoL 1,000 mg In 111.670 Empty Bag 1 bag @ Titrate IV .Q0M INDIGO Rx#: [id number] Oral 350 840 Output: Chest Tube Drainage 164 426 154 Left Pleural/Mediastinal 58 132 64 Mediastinal 106 294 90 Gastric Drainage 150 Urine 540 800 275 Estimated Blood Loss 500 Other: Voiding Method Indwelling Catheter Indwelling Catheter ABP, PAP, CO, CI - Last Documented Arterial Blood Pressure 165/54 Pulmonary Artery Pressure 43/16 Cardiac Output 6.5 Cardiac Index 2.5 - Labs CBC & Chem 7: 03/31/24 04:00 03/31/24 04:00 Labs: Abnormal Lab Results - Last 24 Hours (Table) 03/21/24 03/30/24 03/30/24 Range/Units 09:09 12:47 12:47 WBC 13.5 H (3.8-10.6) k/uL RBC 3.75 L (4.30-5.90) m/uL Hgb 11.8 L D (13.0-17.5) gm/dL Hct 34.5 L (39.0-53.0) % Plt Count 129 L (150-450) k/uL Neutrophils # 11.0 H (1.3-7.7) k/uL Lymphocytes # (1.0-4.8) k/uL Monocytes # (0-1.0) k/uL APTT 33.2 H (22.0-30.0) sec ABG pO2 (83-108) mmHg ABG O2 Saturation (94-97) % Hemoglobin (13.0-17.5) gm/dL Sodium (137-145) mmol/L Chloride (98-107) mmol/L Carbon Dioxide (22-30) mmol/L Glucose (74-99) mg/dL POC Glucose (mg/dL) (70-110) mg/dL Calcium (8.4-10.2) mg/dL Magnesium (1.6-2.3) mg/dL Total Protein (6.3-8.2) g/dL Crossmatch See Detail 03/30/24 03/30/24 03/30/24 Range/Units 12:47 15:20 15:59 WBC (3.8-10.6) k/uL RBC (4.30-5.90) m/uL Hgb (13.0-17.5) gm/dL Hct (39.0-53.0) % Plt Count (150-450) k/uL Neutrophils # (1.3-7.7) k/uL Lymphocytes # (1.0-4.8) k/uL Monocytes # (0-1.0) k/uL APTT (22.0-30.0) sec ABG pO2 (83-108) mmHg ABG O2 Saturation (94-97) % Hemoglobin (13.0-17.5) gm/dL Sodium (137-145) mmol/L Chloride 113 H (98-107) mmol/L Carbon Dioxide (22-30) mmol/L Glucose 123 H (74-99) mg/dL POC Glucose (mg/dL) 145 H 160 H (70-110) mg/dL Calcium 8.1 L (8.4-10.2) mg/dL Magnesium 3.2 H (1.6-2.3) mg/dL Total Protein 5.6 L (6.3-8.2) g/dL Crossmatch 03/30/24 03/30/24 03/30/24 Range/Units 16:00 17:17 17:57 WBC 16.6 H (3.8-10.6) k/uL RBC 4.12 L (4.30-5.90) m/uL Hgb 12.8 L (13.0-17.5) gm/dL Hct 37.8 L (39.0-53.0) % Plt Count (150-450) k/uL Neutrophils # 13.5 H (1.3-7.7) k/uL Lymphocytes # (1.0-4.8) k/uL Monocytes # 1.1 H (0-1.0) k/uL APTT (22.0-30.0) sec ABG pO2 65 L (83-108) mmHg ABG O2 Saturation 92.8 L (94-97) % Hemoglobin 12.6 L (13.0-17.5) gm/dL Sodium (137-145) mmol/L Chloride (98-107) mmol/L Carbon Dioxide (22-30) mmol/L Glucose (74-99) mg/dL POC Glucose (mg/dL) 152 H (70-110) mg/dL Calcium (8.4-10.2) mg/dL Magnesium (1.6-2.3) mg/dL Total Protein (6.3-8.2) g/dL Crossmatch 03/30/24 03/30/24 03/30/24 Range/Units 18:20 18:48 18:48 WBC 12.3 H (3.8-10.6) k/uL RBC 4.00 L (4.30-5.90) m/uL Hgb 12.4 L (13.0-17.5) gm/dL Hct 37.2 L (39.0-53.0) % Plt Count 146 L (150-450) k/uL Neutrophils # 10.6 H (1.3-7.7) k/uL Lymphocytes # 0.8 L (1.0-4.8) k/uL Monocytes # (0-1.0) k/uL APTT (22.0-30.0) sec ABG pO2 (83-108) mmHg ABG O2 Saturation (94-97) % Hemoglobin (13.0-17.5) gm/dL Sodium (137-145) mmol/L Chloride (98-107) mmol/L Carbon Dioxide (22-30) mmol/L Glucose (74-99) mg/dL POC Glucose (mg/dL) 151 H 147 H (70-110) mg/dL Calcium (8.4-10.2) mg/dL Magnesium (1.6-2.3) mg/dL Total Protein (6.3-8.2) g/dL Crossmatch 03/30/24 03/30/24 03/30/24 Range/Units 19:47 21:09 22:07 WBC (3.8-10.6) k/uL RBC (4.30-5.90) m/uL Hgb (13.0-17.5) gm/dL Hct (39.0-53.0) % Plt Count (150-450) k/uL Neutrophils # (1.3-7.7) k/uL Lymphocytes # (1.0-4.8) k/uL Monocytes # (0-1.0) k/uL APTT (22.0-30.0) sec ABG pO2 (83-108) mmHg ABG O2 Saturation (94-97) % Hemoglobin (13.0-17.5) gm/dL Sodium (137-145) mmol/L Chloride (98-107) mmol/L Carbon Dioxide (22-30) mmol/L Glucose (74-99) mg/dL POC Glucose (mg/dL) 137 H 124 H 131 H (70-110) mg/dL Calcium (8.4-10.2) mg/dL Magnesium (1.6-2.3) mg/dL Total Protein (6.3-8.2) g/dL Crossmatch 03/30/24 03/30/24 03/31/24 Range/Units 22:59 23:59 01:09 WBC (3.8-10.6) k/uL RBC (4.30-5.90) m/uL Hgb (13.0-17.5) gm/dL Hct (39.0-53.0) % Plt Count (150-450) k/uL Neutrophils # (1.3-7.7) k/uL Lymphocytes # (1.0-4.8) k/uL Monocytes # (0-1.0) k/uL APTT (22.0-30.0) sec ABG pO2 (83-108) mmHg ABG O2 Saturation (94-97) % Hemoglobin (13.0-17.5) gm/dL Sodium (137-145) mmol/L Chloride (98-107) mmol/L Carbon Dioxide (22-30) mmol/L Glucose (74-99) mg/dL POC Glucose (mg/dL) 130 H 139 H 134 H (70-110) mg/dL Calcium (8.4-10.2) mg/dL Magnesium (1.6-2.3) mg/dL Total Protein (6.3-8.2) g/dL Crossmatch 03/31/24 03/31/24 03/31/24 Range/Units 02:05 03:11 04:00 WBC 16.5 H (3.8-10.6) k/uL RBC 4.07 L (4.30-5.90) m/uL Hgb 12.7 L (13.0-17.5) gm/dL Hct 37.7 L (39.0-53.0) % Plt Count (150-450) k/uL Neutrophils # 14.1 H (1.3-7.7) k/uL Lymphocytes # 0.9 L (1.0-4.8) k/uL Monocytes # 1.2 H (0-1.0) k/uL APTT (22.0-30.0) sec ABG pO2 (83-108) mmHg ABG O2 Saturation (94-97) % Hemoglobin (13.0-17.5) gm/dL Sodium (137-145) mmol/L Chloride (98-107) mmol/L Carbon Dioxide (22-30) mmol/L Glucose (74-99) mg/dL POC Glucose (mg/dL) 131 H 121 H (70-110) mg/dL Calcium (8.4-10.2) mg/dL Magnesium (1.6-2.3) mg/dL Total Protein (6.3-8.2) g/dL Crossmatch 03/31/24 03/31/24 03/31/24 Range/Units 04:00 04:02 06:09 WBC (3.8-10.6) k/uL RBC (4.30-5.90) m/uL Hgb (13.0-17.5) gm/dL Hct (39.0-53.0) % Plt Count (150-450) k/uL Neutrophils # (1.3-7.7) k/uL Lymphocytes # (1.0-4.8) k/uL Monocytes # (0-1.0) k/uL APTT (22.0-30.0) sec ABG pO2 (83-108) mmHg ABG O2 Saturation (94-97) % Hemoglobin (13.0-17.5) gm/dL Sodium 136 L (137-145) mmol/L Chloride 111 H (98-107) mmol/L Carbon Dioxide 21 L (22-30) mmol/L Glucose 111 H (74-99) mg/dL POC Glucose (mg/dL) 125 H 136 H (70-110) mg/dL Calcium 8.2 L (8.4-10.2) mg/dL Magnesium 2.6 H (1.6-2.3) mg/dL Total Protein 6.0 L (6.3-8.2) g/dL Crossmatch 03/31/24 03/31/24 03/31/24 Range/Units 07:08 07:56 09:00 WBC (3.8-10.6) k/uL RBC (4.30-5.90) m/uL Hgb (13.0-17.5) gm/dL Hct (39.0-53.0) % Plt Count (150-450) k/uL Neutrophils # (1.3-7.7) k/uL Lymphocytes # (1.0-4.8) k/uL Monocytes # (0-1.0) k/uL APTT (22.0-30.0) sec ABG pO2 (83-108) mmHg ABG O2 Saturation (94-97) % Hemoglobin (13.0-17.5) gm/dL Sodium (137-145) mmol/L Chloride (98-107) mmol/L Carbon Dioxide (22-30) mmol/L Glucose (74-99) mg/dL POC Glucose (mg/dL) 129 H 245 H 200 H (70-110) mg/dL Calcium (8.4-10.2) mg/dL Magnesium (1.6-2.3) mg/dL Total Protein (6.3-8.2) g/dL Crossmatch 03/31/24 03/31/24 03/31/24 Range/Units 10:13 11:10 11:53 WBC (3.8-10.6) k/uL RBC (4.30-5.90) m/uL Hgb (13.0-17.5) gm/dL Hct (39.0-53.0) % Plt Count (150-450) k/uL Neutrophils # (1.3-7.7) k/uL Lymphocytes # (1.0-4.8) k/uL Monocytes # (0-1.0) k/uL APTT (22.0-30.0) sec ABG pO2 (83-108) mmHg ABG O2 Saturation (94-97) % Hemoglobin (13.0-17.5) gm/dL Sodium (137-145) mmol/L Chloride (98-107) mmol/L Carbon Dioxide (22-30) mmol/L Glucose (74-99) mg/dL POC Glucose (mg/dL) 142 H 113 H 113 H (70-110) mg/dL Calcium (8.4-10.2) mg/dL Magnesium (1.6-2.3) mg/dL Total Protein (6.3-8.2) g/dL Crossmatch 03/31/24 Range/Units 12:53 WBC (3.8-10.6) k/uL RBC (4.30-5.90) m/uL Hgb (13.0-17.5) gm/dL Hct (39.0-53.0) % Plt Count (150-450) k/uL Neutrophils # (1.3-7.7) k/uL Lymphocytes # (1.0-4.8) k/uL Monocytes # (0-1.0) k/uL APTT (22.0-30.0) sec ABG pO2 (83-108) mmHg ABG O2 Saturation (94-97) % Hemoglobin (13.0-17.5) gm/dL Sodium (137-145) mmol/L Chloride (98-107) mmol/L Carbon Dioxide (22-30) mmol/L Glucose (74-99) mg/dL POC Glucose (mg/dL) 149 H (70-110) mg/dL Calcium (8.4-10.2) mg/dL Magnesium (1.6-2.3) mg/dL Total Protein (6.3-8.2) g/dL Crossmatch
[2024-03-31 14:16] LABS: Glucose,Whole Blood 141 mg/dL (70-110)
[2024-03-31 15:05] LABS: Glucose,Whole Blood 120 mg/dL (70-110)
[2024-03-31 16:12] LABS: Glucose,Whole Blood 120 mg/dL (70-110)
[2024-03-31 17:17] LABS: Glucose,Whole Blood 108 mg/dL (70-110)
[2024-03-31 18:26] LABS: Glucose,Whole Blood 199 mg/dL (70-110)
[2024-03-31 19:03] LABS: Glucose,Whole Blood 204 mg/dL (70-110)
[2024-03-31 20:03] LABS: Glucose,Whole Blood 167 mg/dL (70-110)
[2024-03-31 21:09] LABS: Glucose,Whole Blood 155 mg/dL (70-110)
[2024-03-31 22:09] LABS: Glucose,Whole Blood 129 mg/dL (70-110)
[2024-03-31 23:17] LABS: Glucose,Whole Blood 108 mg/dL (70-110)
[2024-04-01 00:17] LABS: Glucose,Whole Blood 135 mg/dL (70-110)
[2024-04-01 01:06] LABS: Glucose,Whole Blood 133 mg/dL (70-110)
[2024-04-01 02:21] LABS: Glucose,Whole Blood 133 mg/dL (70-110)
[2024-04-01 03:30] LABS: Glucose,Whole Blood 117 mg/dL (70-110)
[2024-04-01 04:13] LABS: Glucose,Whole Blood 120 mg/dL (70-110)
[2024-04-01 04:25] LABS: Basophils # (A) 0.1 k/uL (0-0.2); Basophils % (A) 0 %; Eosinophils # (A) 0.3 k/uL (0-0.7); Eosinophils % (A) 2 %; HCT 35.2 % (39.0-53.0); HGB 11.6 gm/dL (13.0-17.5); Lymphocytes # (A) 1.6 k/uL (1.0-4.8); Lymphocytes % (A) 10 %; MCH 30.5 pg (25.0-35.0); MCV 92.5 fL (80.0-100.0); Mean Platelet Volume 8.8; Monocytes # (A) 1.1 k/uL (0-1.0); Monocytes % (A) 7 %; Neutrophils # (A) 12.4 k/uL (1.3-7.7); Neutrophils % (A) 79 %; Platelet Count 135 k/uL (150-450); RDW 13.8 % (11.5-15.5); WBC 15.7 k/uL (3.8-10.6)
[2024-04-01 04:29] LABS: Ionized Calcium 4.5 mg/dL (4.5-5.3)
[2024-04-01 04:37] LABS: ALT 10 U/L (4-49); AST 29 U/L (17-59); African American GFR (CKD) 78 (>60 ml/min/1.73 sqM); Albumin 3.4 g/dL (3.5-5.0); Alkaline Phosphatase 59 U/L (38-126); Anion Gap 1 mmol/L; Blood Urea Nitrogen 22 mg/dL (9-20); Carbon Dioxide 21 mmol/L (22-30); Chloride 109 mmol/L (98-107); Glucose 110 mg/dL (74-99); Non-African American GFR(CKD) 67 (>60 ml/min/1.73 sqM); Potassium 4.1 mmol/L (3.5-5.1); Sodium 131 mmol/L (137-145); Total Bilirubin 1.3 mg/dL (0.2-1.3); Total Protein 5.8 g/dL (6.3-8.2)
[2024-04-01] MEDS: PANTOPRAZOLE 40 MG TABLET PO SCH (05:08)
[2024-04-01 05:16] LABS: Glucose,Whole Blood 118 mg/dL (70-110)
--- NOTE | 2024-04-01 06:22 | XR ---
EXAMINATION TYPE: XR chest 1V portable DATE OF EXAM: 04/01/2024 COMPARISON: 03/31/2024 HISTORY: Post operative cardiac surgery TECHNIQUE: Single frontal view of the chest is obtained. FINDINGS: The [place]-Karen catheter has been removed in the interval. There is a left-sided chest tube. There is n o pneumothorax. There is no change in the cardiac enlargement, the pulmonary vascular congestion and mild interstitia l edema. IMPRESSION: 1. Interval removal of the [place]-Karen catheter. No change in the left chest tube. 2. No change in the cardiomegaly and mild pulmonary vascular congestion and interstitial edema. [facility], , 04/01/2024 6:20 AM
[2024-04-01 06:24] LABS: Glucose,Whole Blood 128 mg/dL (70-110)
[2024-04-01] MEDS: IPRATROPIUM-ALBUTEROL 3 ML NEB INHALATION PRN (06:29)
[2024-04-01] MEDS: METOCLOPRAMIDE 5 MG/ML 2 ML VIAL IVP PRN (06:56)
[2024-04-01 07:15] LABS: Glucose,Whole Blood 133 mg/dL (70-110)
--- NOTE | 2024-04-01 08:49 | P.PN ---
Subjective Progress Note Date: 04/01/24 Principal diagnosis: Symptomatic severe calcific aortic stenosis. Past medical history significant for hypertension, hyperlipidemia, diabetes mellitus type 2 with a preoperative h emoglobin A1c 5.9%, coronary artery disease with prior PCI to his right coronary artery and left circumflex coronary artery, and remote history of nicotine dependence quit smoking in 2017. POD #2 Aortic valve replacement with 27 mm Inspiris Resilia bovine pericardial valve, exclusion of left atrial appendage with 35mm AtriCure clip. Postoperative acute blood loss anemia, expected given hemodilution and cardiopulmonary bypass. The patient was seen and examined in follow-up today April 01, 2024 at his bedside in the intensive care unit. He is currently sitting up to the bedside chair, is awake, alert, oriented x 3 and is in no acute apparent distress. He denies any complaints of shortness of breath at this time, and reports that his pain is well-controlled on the current pain medication regimen, states he is having a little bit of pain with taking a deep breath and coughing to his chest tube insertion sites. He remains hemodynamically stable and is currently on no inotropic or pressor support. Bedside telemetry is showing normal sinus rhythm heart rate 77 bpm. Oxygen saturations are 96% on 2 L nasal cannula and he is achieving 1500 mL on his incentive spirometry with encouragement. Mediastinal and left pleural chest tubes remain in place to low continuous wall suction -20 cm H2O. No air leak is present. Mediastinal chest tubes draining thin serosanguineous drainage with 70 mL output in the last 8 hours and 200 mL output in the last 24 hours. Left pleural chest tube draining thin serosanguineous drainage with 90 mL output in the last 8 hours and 250 mL output in the last 24 hours. Right IJ cordis remains in place with current CVP pressure 10 mmHg. Chest x-ray and laboratory results were reviewed. Objective - Vital Signs Vital signs: Vital Signs Temp 98.8 F 04/01/24 04:00 Pulse 67 04/01/24 06:40 Resp 12 04/01/24 06:05 BP 124/61 04/01/24 06:05 Pulse Ox 94 L 04/01/24 06:05 FiO2 60 03/31/24 03:54 Intake & Output 03/31/24 03/31/24 04/01/24 06:59 18:59 06:59 Intake Total 2055.075 2142.686 1146.885 Output Total 1226 609 565 Balance 613.302 4870.686 581.885 Weight 142.6 kg 142.6 kg 143.4 kg Intake: IV 1158 759 432 ACETAMINOPHEN IV (For NPO 200 100 ) 1,000 mg In Empty Bag 1 bag @ 400 mls/hr IVPB Q6HR INDIGO Rx#:[id number] CO/CI 150 20 Pressure Bags 108 99 72 Sodium Chloride 0.9% 1, 600 540 360 000 ml @ 20 mls/hr IV . Q24H INDIGO Rx#:[id number] ceFAZolin 3 gm In Sodium 100 Chloride 0.9% 100 ml @ 100 mls/hr IVPB Q8HR INDIGO Rx#:[id number] Intake, IV Titration 547.075 63.686 74.885 Amount Amiodarone 450 mg In 227.782 Dextrose 5% in Water 250 ml @ 0.5 MG/MIN 16.667 mls/hr IV .Q15H PRN Rx#: [id number] Clevidipine Butyrate 25 265.334 29.767 35.133 mg In Empty Bag 1 bag @ 1 MG/HR 2 mls/hr IV .Q24H INDIGO Rx#:[id number] Insulin Regular 100 unit 53.959 33.919 39.752 In Sodium Chloride 0.9% 100 ml @ Per Protocol IV .Q0M INDIGO Rx#:[id number] Oral 350 1320 640 Output: Chest Tube Drainage 426 234 220 Left Pleural/Mediastinal 132 104 120 Mediastinal 294 130 100 Urine 800 375 345 Other: Voiding Method Indwelling Catheter Indwelling Catheter Indwelling Catheter ABP, PAP, CO, CI - Last Documented Arterial Blood Pressure 191/58 Pulmonary Artery Pressure 41/16 Cardiac Output 6.5 Cardiac Index 2.5 - Exam CONSTITUTIONAL: Sitting up to the bedside chair in the intensive care unit, appears comfortable, cooperative, no apparent acute distress. HEENT: Neck is supple, no JVD, no lymphadenopathy. Right IJ Cordis in place and functioning. RESPIRATORY: Lungs sounds essentially clear throughout, diminished to his bilateral bases. Respirations are symmetrical and nonlabored. Currently on 2 L nasal cannula with oxygen saturations 96%. Able to achieve 1500 mL on his incentive spirometry. Strong cough. CARDIOVASCULAR: Regular rhythm and rate. S1 and S2 present, negative for S3, gallop or murmur. Sternum is stable. Palpable peripheral pulses bilaterally. No calf pain or tenderness noted. Heart hugger in place with patient demonstrating appropriate use. Knee-high LAURENCE hose and sequential compression devices in place to his bilateral lower extremities. GASTROINTESTINAL: Abdomen soft, nontender, nondistended. Active bowel sounds present 4 quadrants. Tolerating diet. Passing flatus. No guarding or rigidity. GENITOURINARY: Dillon present draining clear, yellow urine. Urine output 225 mL in the last 8 hours. INTEGUMENTARY: Skin is warm and dry with no evidence of clubbing or cyanosis. Midline sternal incision clean dry and well approximated, covered with dry intact dressing. NEUROLOGIC: Cranial nerves II through XII intact. No focal deficits. MUSKULOSKELETAL: Able to move all extremities, strength equal bilaterally, generalized weakness. PSYCHIATRIC: Alert and oriented to person place and time, appropriate affect, intact judgment and insight. INVASIVE LINES AND TUBES: Mediastinal/left pleural chest tubes present and connected to low continuous wall suction, no air leaks present. Mediastinal tubes with 70 mL of thin serosanguineous drainage overnight, 200 mL output in the last 24 hours. Left pleural chest tube with 90 mL of thin serosanguineous drainage overnight, 250 mL output in the last 24 hours. Atrial and ventricular epicardial pacemaker wires present, connected to generator, VVI backup rate 60 bpm. Right internal jugular Cordis, left radial arterial line present. Current CVP 10 mmHg. - Allied health notes Allied health notes reviewed: nursing - Labs CBC & Chem 7: 04/01/24 04:10 04/01/24 04:10 Labs: Abnormal Lab Results - Last 24 Hours (Table) 03/31/24 03/31/24 03/31/24 Range/Units 07:08 07:56 09:00 WBC (3.8-10.6) k/uL RBC (4.30-5.90) m/uL Hgb (13.0-17.5) gm/dL Hct (39.0-53.0) % Plt Count (150-450) k/uL Neutrophils # (1.3-7.7) k/uL Monocytes # (0-1.0) k/uL Sodium (137-145) mmol/L Chloride (98-107) mmol/L Carbon Dioxide (22-30) mmol/L BUN (9-20) mg/dL Glucose (74-99) mg/dL POC Glucose (mg/dL) 129 H 245 H 200 H (70-110) mg/dL Calcium (8.4-10.2) mg/dL Total Protein (6.3-8.2) g/dL Albumin (3.5-5.0) g/dL 03/31/24 03/31/24 03/31/24 Range/Units 10:13 11:10 11:53 WBC (3.8-10.6) k/uL RBC (4.30-5.90) m/uL Hgb (13.0-17.5) gm/dL Hct (39.0-53.0) % Plt Count (150-450) k/uL Neutrophils # (1.3-7.7) k/uL Monocytes # (0-1.0) k/uL Sodium (137-145) mmol/L Chloride (98-107) mmol/L Carbon Dioxide (22-30) mmol/L BUN (9-20) mg/dL Glucose (74-99) mg/dL POC Glucose (mg/dL) 142 H 113 H 113 H (70-110) mg/dL Calcium (8.4-10.2) mg/dL Total Protein (6.3-8.2) g/dL Albumin (3.5-5.0) g/dL 03/31/24 03/31/24 03/31/24 Range/Units 12:53 14:15 15:04 WBC (3.8-10.6) k/uL RBC (4.30-5.90) m/uL Hgb (13.0-17.5) gm/dL Hct (39.0-53.0) % Plt Count (150-450) k/uL Neutrophils # (1.3-7.7) k/uL Monocytes # (0-1.0) k/uL Sodium (137-145) mmol/L Chloride (98-107) mmol/L Carbon Dioxide (22-30) mmol/L BUN (9-20) mg/dL Glucose (74-99) mg/dL POC Glucose (mg/dL) 149 H 141 H 120 H (70-110) mg/dL Calcium (8.4-10.2) mg/dL Total Protein (6.3-8.2) g/dL Albumin (3.5-5.0) g/dL 03/31/24 03/31/24 03/31/24 Range/Units 16:11 18:24 19:01 WBC (3.8-10.6) k/uL RBC (4.30-5.90) m/uL Hgb (13.0-17.5) gm/dL Hct (39.0-53.0) % Plt Count (150-450) k/uL Neutrophils # (1.3-7.7) k/uL Monocytes # (0-1.0) k/uL Sodium (137-145) mmol/L Chloride (98-107) mmol/L Carbon Dioxide (22-30) mmol/L BUN (9-20) mg/dL Glucose (74-99) mg/dL POC Glucose (mg/dL) 120 H 199 H 204 H (70-110) mg/dL Calcium (8.4-10.2) mg/dL Total Protein (6.3-8.2) g/dL Albumin (3.5-5.0) g/dL 03/31/24 03/31/24 03/31/24 Range/Units 20:00 21:08 22:08 WBC (3.8-10.6) k/uL RBC (4.30-5.90) m/uL Hgb (13.0-17.5) gm/dL Hct (39.0-53.0) % Plt Count (150-450) k/uL Neutrophils # (1.3-7.7) k/uL Monocytes # (0-1.0) k/uL Sodium (137-145) mmol/L Chloride (98-107) mmol/L Carbon Dioxide (22-30) mmol/L BUN (9-20) mg/dL Glucose (74-99) mg/dL POC Glucose (mg/dL) 167 H 155 H 129 H (70-110) mg/dL Calcium (8.4-10.2) mg/dL Total Protein (6.3-8.2) g/dL Albumin (3.5-5.0) g/dL 04/01/24 04/01/24 04/01/24 Range/Units 00:15 01:04 02:20 WBC (3.8-10.6) k/uL RBC (4.30-5.90) m/uL Hgb (13.0-17.5) gm/dL Hct (39.0-53.0) % Plt Count (150-450) k/uL Neutrophils # (1.3-7.7) k/uL Monocytes # (0-1.0) k/uL Sodium (137-145) mmol/L Chloride (98-107) mmol/L Carbon Dioxide (22-30) mmol/L BUN (9-20) mg/dL Glucose (74-99) mg/dL POC Glucose (mg/dL) 135 H 133 H 133 H (70-110) mg/dL Calcium (8.4-10.2) mg/dL Total Protein (6.3-8.2) g/dL Albumin (3.5-5.0) g/dL 04/01/24 04/01/24 04/01/24 Range/Units 03:27 04:10 04:10 WBC 15.7 H (3.8-10.6) k/uL RBC 3.80 L (4.30-5.90) m/uL Hgb 11.6 L (13.0-17.5) gm/dL Hct 35.2 L (39.0-53.0) % Plt Count 135 L (150-450) k/uL Neutrophils # 12.4 H (1.3-7.7) k/uL Monocytes # 1.1 H (0-1.0) k/uL Sodium 131 L (137-145) mmol/L Chloride 109 H (98-107) mmol/L Carbon Dioxide 21 L (22-30) mmol/L BUN 22 H (9-20) mg/dL Glucose 110 H (74-99) mg/dL POC Glucose (mg/dL) 117 H (70-110) mg/dL Calcium 8.0 L (8.4-10.2) mg/dL Total Protein 5.8 L (6.3-8.2) g/dL Albumin 3.4 L (3.5-5.0) g/dL 04/01/24 04/01/24 04/01/24 Range/Units 04:11 05:14 06:22 WBC (3.8-10.6) k/uL RBC (4.30-5.90) m/uL Hgb (13.0-17.5) gm/dL Hct (39.0-53.0) % Plt Count (150-450) k/uL Neutrophils # (1.3-7.7) k/uL Monocytes # (0-1.0) k/uL Sodium (137-145) mmol/L Chloride (98-107) mmol/L Carbon Dioxide (22-30) mmol/L BUN (9-20) mg/dL Glucose (74-99) mg/dL POC Glucose (mg/dL) 120 H 118 H 128 H (70-110) mg/dL Calcium (8.4-10.2) mg/dL Total Protein (6.3-8.2) g/dL Albumin (3.5-5.0) g/dL - Imaging and Cardiology Chest x-ray: report reviewed, image reviewed Assessment and Plan Assessment: Symptomatic severe calcific aortic stenosis, status post aortic valve replacement with 27 mm Inspiris Resilia bovine pericardial valve History of hypertension Hyperlipidemia, treated, cholesterol 124, LDL 58.4, triglycerides 101 Diabetes mellitus type 2 with a preoperative hemoglobin A1c 5.9% History of coronary artery disease status post PCI to the right coronary artery and left circumflex coronary artery Remote history of nicotine dependence quit smoking in 2017, preoperative FEV1 78% of predicted value Postoperative acute blood loss anemia, expected given hemodilution and cardiopulmonary bypass Plan: Continue to maximize medical therapy with aspirin, statin, Plavix, and beta- polly. Will increase beta-polyl therapy as tolerated, currently on home dose of Coreg 6.25 mg p.o. twice daily. Continue amiodarone 200 mg p.o. twice daily in place for atrial fibrillation prophylaxis. Currently in normal sinus rhythm. Wean O2 as tolerated. Encourage incentive spirometry use 10 times every hour while awake. Bronchodilators per pulmonology. Increase activity, ambulate as tolerated. PT/OT/cardiac rehab following. Will monitor daily labs and chest x-rays. Electrolyte replacement per protocol. GI/DVT prophylaxis. Pain control per current medication regimen. Insulin management per internal medicine, preoperative hemoglobin A1c 5.9%. Patient should remain on continuous IV insulin for 48 hours then may transition to subcutaneous per protocol. Discontinue right IJ Cordis and left radial arterial line. We will discontinue his chest tubes today. Remove Dillon catheter, continue to monitor and record strict accurate intake and output. May bladder scan every 6 hours and as needed postvoid residuals, if greater than 300 mL of urine please straight cath. Daily weights. Continue losartan 50 mg p.o. daily added for blood pressure control and afterload reduction. Shower daily starting tomorrow April 02, 2024. More recommendations to follow based on patient's clinical course. Time with Patient: Greater than 30
--- NOTE | 2024-04-01 09:32 | P.PN ---
Subjective Progress Note Date: 04/01/24 PROGRESS NOTE The patient is a 69-year-old male who was admitted today and underwent aortic valve replacement. He is intubated and sedated. He is followed on a regular basis with Dr. Mims and underwent cardiac catheterization on 06 March that revealed patent stents of the RCA and left circumflex. During the same admission he underwent a GAMA that showed a mean gradient 53 mmHg with a peak of 88 with normal ventricle systolic function and tricuspid aortic valve. He underwent a placement of a 27 mm Inspiris Resilia bovine pericardial valve with occlusion of the left atrial appendage. He is in sinus mechanism on no vasopressors, hemodynamically stable. Postsurgical intervention is mean gradie nt was 9 mmHg. His urine output is good. His coronaries factors are positive for hypertension, diabetes, hyperlipidemia March 31: The patient is feeling well, sitting up in the chair, extubated. Hemodynamically stable. He has some soreness in the chest but no dizziness or palpitation. He has no nausea or vomiting. He is tolerating p.o. He is using his incentive spirometry. April 01: The patient is doing well this morning, he has mild chest soreness and throat discomfort. He continues to be in sinus mechanism, ambulating. His blood pressure is stable and he is on no vasopressors. He denies any nausea or vomiting. His chest x-ray shows no significant changes. Medications: Amiodarone 200 mg twice a day, aspirin once a day, Lipitor 80 mg daily, Plavix 75 mg daily, losartan 50 mg daily, carvedilol 6.25 mg twice a day PHYSICAL EXAMINATION: Blood pressure 135/70 heart rate 65 LUNGS: Decreased breath sounds at the bases HEART: Regular rate and rhythm, S1, S2. No S3. Systolic ejection murmur, no rub ABDOMEN: Soft, nontender, no organomegaly EXTREMETIES: No edema LAB: Potassium 4.1, BUN 22, creatinine 1.12 IMPRESSION: 1. Status post aortic valve replacement 2. History of stenting of the RCA and the left circumflex, stable 3. History of hypertension 4. History of hyperlipidemia PLAN: 1. Continue present therapy 2. Continue incentive spirometry 3. Increase physical activity 4. Depending on his progress further recommendations will be made Objective - Vital Signs Vital signs: Vital Signs Temp 98.8 F 04/01/24 04:00 Pulse 65 04/01/24 07:00 Resp 19 04/01/24 07:00 BP 135/77 04/01/24 07:00 Pulse Ox 93 L 04/01/24 07:53 FiO2 60 03/31/24 03:54 Intake & Output 03/31/24 04/01/24 04/01/24 18:59 06:59 18:59 Intake Total 2142.686 1146.885 Output Total 609 565 Balance 1533.686 581.885 Weight 142.6 kg 143.4 kg Intake: IV 759 432 ACETAMINOPHEN IV (For NPO 100 ) 1,000 mg In Empty Bag 1 bag @ 400 mls/hr IVPB Q6HR INDIGO Rx#:[id number] CO/CI 20 Pressure Bags 99 72 Sodium Chloride 0.9% 1, 540 360 000 ml @ 20 mls/hr IV . Q24H INDIGO Rx#:[id number] Intake, IV Titration 63.686 74.885 Amount Clevidipine Butyrate 25 29.767 35.133 mg In Empty Bag 1 bag @ 1 MG/HR 2 mls/hr IV .Q24H INDIGO Rx#:[id number] Insulin Regular 100 unit 33.919 39.752 In Sodium Chloride 0.9% 100 ml @ Per Protocol IV .Q0M INDIGO Rx#:[id number] Oral 1320 640 Output: Chest Tube Drainage 234 220 Left Pleural/Mediastinal 104 120 Mediastinal 130 100 Urine 375 345 Other: Voiding Method Indwelling Catheter Indwelling Catheter ABP, PAP, CO, CI - Last Documented Arterial Blood Pressure 191/58 Pulmonary Artery Pressure 41/16 Cardiac Output 6.5 Cardiac Index 2.5 - Labs CBC & Chem 7: 04/01/24 04:10 04/01/24 04:10 Labs: Abnormal Lab Results - Last 24 Hours (Table) 03/31/24 03/31/24 03/31/24 Range/Units 10:13 11:10 11:53 WBC (3.8-10.6) k/uL RBC (4.30-5.90) m/uL Hgb (13.0-17.5) gm/dL Hct (39.0-53.0) % Plt Count (150-450) k/uL Neutrophils # (1.3-7.7) k/uL Monocytes # (0-1.0) k/uL Sodium (137-145) mmol/L Chloride (98-107) mmol/L Carbon Dioxide (22-30) mmol/L BUN (9-20) mg/dL Glucose (74-99) mg/dL POC Glucose (mg/dL) 142 H 113 H 113 H (70-110) mg/dL Calcium (8.4-10.2) mg/dL Total Protein (6.3-8.2) g/dL Albumin (3.5-5.0) g/dL 03/31/24 03/31/24 03/31/24 Range/Units 12:53 14:15 15:04 WBC (3.8-10.6) k/uL RBC (4.30-5.90) m/uL Hgb (13.0-17.5) gm/dL Hct (39.0-53.0) % Plt Count (150-450) k/uL Neutrophils # (1.3-7.7) k/uL Monocytes # (0-1.0) k/uL Sodium (137-145) mmol/L Chloride (98-107) mmol/L Carbon Dioxide (22-30) mmol/L BUN (9-20) mg/dL Glucose (74-99) mg/dL POC Glucose (mg/dL) 149 H 141 H 120 H (70-110) mg/dL Calcium (8.4-10.2) mg/dL Total Protein (6.3-8.2) g/dL Albumin (3.5-5.0) g/dL 03/31/24 03/31/24 03/31/24 Range/Units 16:11 18:24 19:01 WBC (3.8-10.6) k/uL RBC (4.30-5.90) m/uL Hgb (13.0-17.5) gm/dL Hct (39.0-53.0) % Plt Count (150-450) k/uL Neutrophils # (1.3-7.7) k/uL Monocytes # (0-1.0) k/uL Sodium (137-145) mmol/L Chloride (98-107) mmol/L Carbon Dioxide (22-30) mmol/L BUN (9-20) mg/dL Glucose (74-99) mg/dL POC Glucose (mg/dL) 120 H 199 H 204 H (70-110) mg/dL Calcium (8.4-10.2) mg/dL Total Protein (6.3-8.2) g/dL Albumin (3.5-5.0) g/dL 03/31/24 03/31/24 03/31/24 Range/Units 20:00 21:08 22:08 WBC (3.8-10.6) k/uL RBC (4.30-5.90) m/uL Hgb (13.0-17.5) gm/dL Hct (39.0-53.0) % Plt Count (150-450) k/uL Neutrophils # (1.3-7.7) k/uL Monocytes # (0-1.0) k/uL Sodium (137-145) mmol/L Chloride (98-107) mmol/L Carbon Dioxide (22-30) mmol/L BUN (9-20) mg/dL Glucose (74-99) mg/dL POC Glucose (mg/dL) 167 H 155 H 129 H (70-110) mg/dL Calcium (8.4-10.2) mg/dL Total Protein (6.3-8.2) g/dL Albumin (3.5-5.0) g/dL 04/01/24 04/01/24 04/01/24 Range/Units 00:15 01:04 02:20 WBC (3.8-10.6) k/uL RBC (4.30-5.90) m/uL Hgb (13.0-17.5) gm/dL Hct (39.0-53.0) % Plt Count (150-450) k/uL Neutrophils # (1.3-7.7) k/uL Monocytes # (0-1.0) k/uL Sodium (137-145) mmol/L Chloride (98-107) mmol/L Carbon Dioxide (22-30) mmol/L BUN (9-20) mg/dL Glucose (74-99) mg/dL POC Glucose (mg/dL) 135 H 133 H 133 H (70-110) mg/dL Calcium (8.4-10.2) mg/dL Total Protein (6.3-8.2) g/dL Albumin (3.5-5.0) g/dL 04/01/24 04/01/24 04/01/24 Range/Units 03:27 04:10 04:10 WBC 15.7 H (3.8-10.6) k/uL RBC 3.80 L (4.30-5.90) m/uL Hgb 11.6 L (13.0-17.5) gm/dL Hct 35.2 L (39.0-53.0) % Plt Count 135 L (150-450) k/uL Neutrophils # 12.4 H (1.3-7.7) k/uL Monocytes # 1.1 H (0-1.0) k/uL Sodium 131 L (137-145) mmol/L Chloride 109 H (98-107) mmol/L Carbon Dioxide 21 L (22-30) mmol/L BUN 22 H (9-20) mg/dL Glucose 110 H (74-99) mg/dL POC Glucose (mg/dL) 117 H (70-110) mg/dL Calcium 8.0 L (8.4-10.2) mg/dL Total Protein 5.8 L (6.3-8.2) g/dL Albumin 3.4 L (3.5-5.0) g/dL 04/01/24 04/01/24 04/01/24 Range/Units 04:11 05:14 06:22 WBC (3.8-10.6) k/uL RBC (4.30-5.90) m/uL Hgb (13.0-17.5) gm/dL Hct (39.0-53.0) % Plt Count (150-450) k/uL Neutrophils # (1.3-7.7) k/uL Monocytes # (0-1.0) k/uL Sodium (137-145) mmol/L Chloride (98-107) mmol/L Carbon Dioxide (22-30) mmol/L BUN (9-20) mg/dL Glucose (74-99) mg/dL POC Glucose (mg/dL) 120 H 118 H 128 H (70-110) mg/dL Calcium (8.4-10.2) mg/dL Total Protein (6.3-8.2) g/dL Albumin (3.5-5.0) g/dL 04/01/24 Range/Units 07:14 WBC (3.8-10.6) k/uL RBC (4.30-5.90) m/uL Hgb (13.0-17.5) gm/dL Hct (39.0-53.0) % Plt Count (150-450) k/uL Neutrophils # (1.3-7.7) k/uL Monocytes # (0-1.0) k/uL Sodium (137-145) mmol/L Chloride (98-107) mmol/L Carbon Dioxide (22-30) mmol/L BUN (9-20) mg/dL Glucose (74-99) mg/dL POC Glucose (mg/dL) 133 H (70-110) mg/dL Calcium (8.4-10.2) mg/dL Total Protein (6.3-8.2) g/dL Albumin (3.5-5.0) g/dL
[2024-04-01 09:51] LABS: Glucose,Whole Blood 118 mg/dL (70-110)
[2024-04-01] MEDS: ACETAMINOPHEN TAB 500 MG TAB PO PRN (10:46)
[2024-04-01] MEDS: POTASSIUM CHLORIDE ER 10 MEQ TAB.ER.PRT PO STA (10:47)
[2024-04-01] MEDS: FUROSEMIDE 10 MG/ML 4 ML VIAL IV STA (10:48)
[2024-04-01 11:33] LABS: Glucose,Whole Blood 143 mg/dL (70-110)
[2024-04-01] MEDS: INSULIN ASPART (NovoLOG) 100 UNIT/ML VIAL SQ SCH (11:33)
[2024-04-01] MEDS: INSULIN DETEMIR (LEVEMIR) 100 UNIT/ML SYR SQ SCH (11:34)
--- NOTE | 2024-04-01 12:49 | P.PN ---
Subjective Progress Note Date: 04/01/24 69-year-old male patient, currently being seen in the intensive care and following an aortic valve replacement surgery. The patient underwent an AVR postop, the patient was brought into the intensive care unit for further evaluation and treatment. The patient also is known to have coronary artery disease. The patient underwent cardiac catheterization on 03/06/2024 and the patient had patent stents to RCA and circumflex. Previous GAMA showed a preserved LV function with severe aortic valve stenosis and based on that the patient underwent a surgical valve replacement. Surgery was done and estimated blood loss was 500 cc. At this point in time, the patient is intubated on the mechanical ventilator. The patient is on propofol which is running at 25 mcg/kg/min. The patient is getting a normal sinus rhythm at a rate of 65. Intraoperatively, the patient was atrially paced and currently he has intrinsic rhythm. He is hypertensive on Cleviprex drip for blood pressure control which is running at 8 mg an hour. Most recent cardiac output is 6.2 with an index of 2.4. PA pressures of 37/70. CVP is 10. The patient remains on assist-control mode of mechanical vent at rate of 12, tidal volume of 550, FiO2 of 100% with a PEEP of 10. The blood gas showed a pH of 7.28 with a pCO2 of 53 and pO2 of 115 and a chest x-ray showed adequate expansion of both lungs. No evidence of any pneumothorax. The patient has a left pleural mediastinal chest tube in place. Orotracheal tube is in a good location. No consolidation. No airspace disease. [place]aren catheter is in a good location. Output from the chest tubes has been 100 from the left pleural and 70 from the mediastinal chest tube since arrival from the operating room. Excellent urine output for now. Remains on amiodarone 0.5 mg/min as maintenance. Afebrile. On 03/31/2024, the patient is being seen for a follow-up. The patient is postop day #1 following a aortic valve replacement. Patient sitting up in a chair and the patient is calm and comfortable. Hemodynamically stable. The patient was weaned off the mechanical ventilator and the patient was extubated without any major difficulties and the patient is currently using incentive spirometer. He is currently on 2 L of O2 nasal cannula. Cardiac output is at 7.5 with an index of 2.9. PA pressures are 42/18. The CVP is currently at 13. Remains on Cleviprex drip which is running at 5 mg an hour. Remains on amiodarone drip at 0.5 mg/min and the patient is also on insulin drip at 4.5 units an hour. Chest tubes are also in place. Output from the chest has been noted and the mediastinal chest tube produced 300 cc over the past 8 hours) over the past 24 hours. Left lower chest tube was produced 190 cc over the past 24 hours. As for the blood work, the patient's WBC count is at 16.5 anemia of 12.7 and platelet count of 159. Electrolytes are normal. BUN is 40 with a creatinine of 0.7. Chest x-ray was noted from today and it shows no acute abnormalities. Mild pleural effusion. No evidence of a pneumothorax. Chest tubes are in place. The tube is not removed. No other significant events overnight. Mentation is adequate and the patient is alert and awake and communicating. On 04/01/2024, the patient is being seen for a follow-up. The patient is doing well with no specific complaints. Sitting up in a chair. Is currently on 60 days of oxygen by nasal cannula. The patient is hemodynamically stable and [place]Karen catheters were removed. The patient is currently off Cleviprex drip and is on a combination of Coreg 6.25 mg twice daily and Cozaar 50 mg p.o. daily for blood pressure control. The patient remains on amiodarone and he remains in normal sinus rhythm. The patient had a mediastinal and the left lower chest tube and output is minimal at this point in time. Using incentive spirometer, following approximately 8000. Remains on insulin drip at 3 units an hour. The blood sugars under adequate control. The white cell count 15.7, hemoglobin 11.6 and a platelet count is at 135. BUN is 22 with a creatinine of 1.1 and sodium l evels at 131 with a potassium level of 4.1 and a serum bicarb is at 21. No other significant events overnight. Surgical wound site is dry clean and intact. Chest x-ray shows no evidence of any pneumothorax. Objective - Vital Signs Vital signs: Vital Signs Temp 98.8 F 04/01/24 04:00 Pulse 65 04/01/24 07:00 Resp 19 04/01/24 07:00 BP 135/77 04/01/24 07:00 Pulse Ox 93 L 04/01/24 07:53 FiO2 60 03/31/24 03:54 Intake & Output 03/31/24 04/01/24 04/01/24 18:59 06:59 18:59 Intake Total 2142.686 1146.885 Output Total 609 565 Balance 1533.686 581.885 Weight 142.6 kg 143.4 kg Intake: IV 759 432 ACETAMINOPHEN IV (For NPO 100 ) 1,000 mg In Empty Bag 1 bag @ 400 mls/hr IVPB Q6HR INDIGO Rx#:[id number] CO/CI 20 Pressure Bags 99 72 Sodium Chloride 0.9% 1, 540 360 000 ml @ 20 mls/hr IV . Q24H INDIGO Rx#:[id number] Intake, IV Titration 63.686 74.885 Amount Clevidipine Butyrate 25 29.767 35.133 mg In Empty Bag 1 bag @ 1 MG/HR 2 mls/hr IV .Q24H INDIGO Rx#:[id number] Insulin Regular 100 unit 33.919 39.752 In Sodium Chloride 0.9% 100 ml @ Per Protocol IV .Q0M INDIGO Rx#:[id number] Oral 1320 640 Output: Chest Tube Drainage 234 220 Left Pleural/Mediastinal 104 120 Mediastinal 130 100 Urine 375 345 Other: Voiding Method Indwelling Catheter Indwelling Catheter ABP, PAP, CO, CI - Last Documented Arterial Blood Pressure 191/58 Pulmonary Artery Pressure 41/16 Cardiac Output 6.5 Cardiac Index 2.5 - Exam General Appearance the patient is calm and comfortable, no acute distress. The patient is currently on 2 L of oxygen by nasal cannula Head exam was generally normal. There was no scleral icterus or corneal arcus. M ucous membranes were moist. Neck was supple and without jugular venous distension, thyromegaly, or carotid bruits. Carotids were easily palpable bilaterally. There was no adenopathy. Lung sounds are diminished bilaterally. The surgical wound site is dry clean and intact and the patient has a left pleural and mediastinal chest tube in place. Cardiac exam revealed the PMI to be normally situated and sized. The rhythm was regular and no extrasystoles were noted during several minutes of auscultation. The first and second heart sounds were normal and physiologic splitting of the second heart sound was noted. There were no murmurs, rubs, clicks, or gallops. Abdominal exam revealed normal bowel sounds. The abdomen was soft, non-tender, and without masses, organomegaly, or appreciable enlargement of the abdominal aorta. Examination of the extremities revealed easily palpable radial, femoral and pedal pulses. There was no cyanosis, clubbing or edema. Examination of the skin revealed no evidence of significant rashes, suspicious appearing nevi or other concerning lesions. Neurologically, the patient is awake and alert and the patient does not have any focal neurological deficit. Cranial nerves are essentially intact. - Labs CBC & Chem 7: 04/01/24 04:10 04/01/24 04:10 Labs: Abnormal Lab Results - Last 24 Hours (Table) 03/31/24 03/31/24 03/31/24 Range/Units 09:00 10:13 11:10 WBC (3.8-10.6) k/uL RBC (4.30-5.90) m/uL Hgb (13.0-17.5) gm/dL Hct (39.0-53.0) % Plt Count (150-450) k/uL Neutrophils # (1.3-7.7) k/uL Monocytes # (0-1.0) k/uL Sodium (137-145) mmol/L Chloride (98-107) mmol/L Carbon Dioxide (22-30) mmol/L BUN (9-20) mg/dL Glucose (74-99) mg/dL POC Glucose (mg/dL) 200 H 142 H 113 H (70-110) mg/dL Calcium (8.4-10.2) mg/dL Total Protein (6.3-8.2) g/dL Albumin (3.5-5.0) g/dL 03/31/24 03/31/24 03/31/24 Range/Units 11:53 12:53 14:15 WBC (3.8-10.6) k/uL RBC (4.30-5.90) m/uL Hgb (13.0-17.5) gm/dL Hct (39.0-53.0) % Plt Count (150-450) k/uL Neutrophils # (1.3-7.7) k/uL Monocytes # (0-1.0) k/uL Sodium (137-145) mmol/L Chloride (98-107) mmol/L Carbon Dioxide (22-30) mmol/L BUN (9-20) mg/dL Glucose (74-99) mg/dL POC Glucose (mg/dL) 113 H 149 H 141 H (70-110) mg/dL Calcium (8.4-10.2) mg/dL Total Protein (6.3-8.2) g/dL Albumin (3.5-5.0) g/dL 03/31/24 03/31/24 03/31/24 Range/Units 15:04 16:11 18:24 WBC (3.8-10.6) k/uL RBC (4.30-5.90) m/uL Hgb (13.0-17.5) gm/dL Hct (39.0-53.0) % Plt Count (150-450) k/uL Neutrophils # (1.3-7.7) k/uL Monocytes # (0-1.0) k/uL Sodium (137-145) mmol/L Chloride (98-107) mmol/L Carbon Dioxide (22-30) mmol/L BUN (9-20) mg/dL Glucose (74-99) mg/dL POC Glucose (mg/dL) 120 H 120 H 199 H (70-110) mg/dL Calcium (8.4-10.2) mg/dL Total Protein (6.3-8.2) g/dL Albumin (3.5-5.0) g/dL 03/31/24 03/31/24 03/31/24 Range/Units 19:01 20:00 21:08 WBC (3.8-10.6) k/uL RBC (4.30-5.90) m/uL Hgb (13.0-17.5) gm/dL Hct (39.0-53.0) % Plt Count (150-450) k/uL Neutrophils # (1.3-7.7) k/uL Monocytes # (0-1.0) k/uL Sodium (137-145) mmol/L Chloride (98-107) mmol/L Carbon Dioxide (22-30) mmol/L BUN (9-20) mg/dL Glucose (74-99) mg/dL POC Glucose (mg/dL) 204 H 167 H 155 H (70-110) mg/dL Calcium (8.4-10.2) mg/dL Total Protein (6.3-8.2) g/dL Albumin (3.5-5.0) g/dL 03/31/24 04/01/24 04/01/24 Range/Units 22:08 00:15 01:04 WBC (3.8-10.6) k/uL RBC (4.30-5.90) m/uL Hgb (13.0-17.5) gm/dL Hct (39.0-53.0) % Plt Count (150-450) k/uL Neutrophils # (1.3-7.7) k/uL Monocytes # (0-1.0) k/uL Sodium (137-145) mmol/L Chloride (98-107) mmol/L Carbon Dioxide (22-30) mmol/L BUN (9-20) mg/dL Glucose (74-99) mg/dL POC Glucose (mg/dL) 129 H 135 H 133 H (70-110) mg/dL Calcium (8.4-10.2) mg/dL Total Protein (6.3-8.2) g/dL Albumin (3.5-5.0) g/dL 04/01/24 04/01/24 04/01/24 Range/Units 02:20 03:27 04:10 WBC 15.7 H (3.8-10.6) k/uL RBC 3.80 L (4.30-5.90) m/uL Hgb 11.6 L (13.0-17.5) gm/dL Hct 35.2 L (39.0-53.0) % Plt Count 135 L (150-450) k/uL Neutrophils # 12.4 H (1.3-7.7) k/uL Monocytes # 1.1 H (0-1.0) k/uL Sodium (137-145) mmol/L Chloride (98-107) mmol/L Carbon Dioxide (22-30) mmol/L BUN (9-20) mg/dL Glucose (74-99) mg/dL POC Glucose (mg/dL) 133 H 117 H (70-110) mg/dL Calcium (8.4-10.2) mg/dL Total Protein (6.3-8.2) g/dL Albumin (3.5-5.0) g/dL 04/01/24 04/01/24 04/01/24 Range/Units 04:10 04:11 05:14 WBC (3.8-10.6) k/uL RBC (4.30-5.90) m/uL Hgb (13.0-17.5) gm/dL Hct (39.0-53.0) % Plt Count (150-450) k/uL Neutrophils # (1.3-7.7) k/uL Monocytes # (0-1.0) k/uL Sodium 131 L (137-145) mmol/L Chloride 109 H (98-107) mmol/L Carbon Dioxide 21 L (22-30) mmol/L BUN 22 H (9-20) mg/dL Glucose 110 H (74-99) mg/dL POC Glucose (mg/dL) 120 H 118 H (70-110) mg/dL Calcium 8.0 L (8.4-10.2) mg/dL Total Protein 5.8 L (6.3-8.2) g/dL Albumin 3.4 L (3.5-5.0) g/dL 04/01/24 04/01/24 Range/Units 06:22 07:14 WBC (3.8-10.6) k/uL RBC (4.30-5.90) m/uL Hgb (13.0-17.5) gm/dL Hct (39.0-53.0) % Plt Count (150-450) k/uL Neutrophils # (1.3-7.7) k/uL Monocytes # (0-1.0) k/uL Sodium (137-145) mmol/L Chloride (98-107) mmol/L Carbon Dioxide (22-30) mmol/L BUN (9-20) mg/dL Glucose (74-99) mg/dL POC Glucose (mg/dL) 128 H 133 H (70-110) mg/dL Calcium (8.4-10.2) mg/dL Total Protein (6.3-8.2) g/dL Albumin (3.5-5.0) g/dL Assessment and Plan Plan: Severe aortic stenosis and the patient is status post aortic valve replacement, postop day #2. , Output is minimal at this point in time.Hemodynamically stable. The patient is on no pressors. The patient remains on amiodarone drip for A-fib prophylaxis. Cardiac rhythm is sinus. Postthoracotomy, the patient has been extubated to nasal cannula. Chest tubes are still in place, output is minimal at this point in time. Hypertension with postop elevation in the blood pressure, currently off Cleviprex and the patient is currently on a combination of Coreg and Cozaar Coronary artery disease with previous non-ST segment elevation myocardial infarction. Cardiac catheterization from 03/06/2024 showed patent coronary stent to the circumflex and the RCA Hypertension Hyperlipidemia Peripheral vascular disease Obesity Former smoker Plan Continue pulmonary toileting and the patient is currently on 2 L of oxygen by nasal cannula monitor output from the chest tubes. Chest tubes can be potentially removed today. This will be discussed with cardiothoracic surgery Hemodynamically stable Coreg, losartan for blood pressure control. The patient is currently off Clevi prex Start the patient Levemir insulin 16 units daily and discontinue the insulin drip and utilize sliding scale insulin for blood sugar control Continue amiodarone oral for A-fib prophylaxis Cardiac rhythm is sinus Will continue to follow.
[2024-04-01] MEDS: ALBUMIN HUMAN 25% 50 ML IV ONE (15:43)
[2024-04-01] MEDS: CALCIUM CHLORIDE 100 MG/ML 10 ML SYRINGE IV ONE (15:43)
[2024-04-01] MEDS: ALBUMIN HUMAN 5% 500 ML IVPB ONE (15:43)
[2024-04-01] MEDS: CARDIOPLEGIC SOLN (K+ 16 MEQ/L 1,000 ML with SODIUM BICARB (1 MEQ/ML) 20 ML, LIDOCAINE ... PERFUSION ONE (15:43)
[2024-04-01] MEDS: ceFAZolin 1,000 MG in SODIUM CHLORIDE 0.9% IRRIGATIO 1,000 ML IRRIGATION ONE (15:43)
[2024-04-01] MEDS: MANNITOL 25% 12.5 GM/50 ML VIAL IV ONE (15:44)
[2024-04-01] MEDS: INSULIN REGULAR 100 UNIT in SODIUM CHLORIDE 0.9% 100 ML IV ONE (15:44)
[2024-04-01] MEDS: ceFAZolin 3 GM in SODIUM CHLORIDE 0.9% 100 ML IVPB ONE (15:44)
[2024-04-01] MEDS: NITROGLYCERIN SL TABS 0.4 MG TAB SUBLINGUAL ONE (15:44)
[2024-04-01] MEDS: NITROGLYCERIN-D5W PMX 25 MG/250 ML BTL IV ONE (15:44)
[2024-04-01] MEDS: CHLORHEXIDINE GLUCONATE 15 ML CUP MUCOUS MEM ONE (15:44)
[2024-04-01] MEDS: HEPARIN SODIUM,PORCINE (1 ML) 5,000 UNIT in SODIUM CHLORIDE 0.9% 500 ML 500 ML IV ONE (15:45)
[2024-04-01] MEDS: HEPARIN SODIUM 1,000 UN/ML (10ML VL) IV ONE (15:46)
[2024-04-01] MEDS: MAGNESIUM SULFATE 16.24 MEQ in EMPTY SYRINGE 1 SYR IV ONE (15:46)
[2024-04-01] MEDS: CLEVIDIPINE BUTYRATE 25 MG in EMPTY BAG 1 BAG IV ONE (15:46)
[2024-04-01] MEDS: PHENYLEPHRINE 10 MG/ML VIAL IV ONE (15:47)
[2024-04-01] MEDS: NITROGLYCERIN-D5W PMX 50 MG in DEXTROSE/WATER 1 250ML.BAG IV ONE (15:47)
[2024-04-01] MEDS: propofoL 1,000 MG/100 ML VIAL IV ONE (15:47)
[2024-04-01] MEDS: PHENYLEPHRINE 40 MG in SODIUM CHLORIDE 0.9% 250 ML IV ONE (15:47)
[2024-04-01] MEDS: NOREPINEPHRINE 4 MG in SODIUM CHLORIDE 0.9% 250 ML IV ONE (15:47)
[2024-04-01] MEDS: TRANEXAMIC ACID 2,000 MG in SODIUM CHLORIDE 0.9% 80 ML IV ONE (15:48)
[2024-04-01] MEDS: PROTAMINE SULFATE 250 MG in EMPTY BAG 1 BAG IV ONE (15:48)
[2024-04-01] MEDS: SODIUM BICARB 8.4% 50 ML SYR (1 MEQ/ML) IV ONE (15:48)
[2024-04-01] MEDS: SODIUM CHLORIDE 0.9% 1,000 ML IV ONE (15:48)
[2024-04-01] MEDS: PROTAMINE SULFATE 10 MG/ML 25 ML VIAL IV ONE (15:48)
[2024-04-01 16:42] LABS: Glucose,Whole Blood 151 mg/dL (70-110)
[2024-04-01] MEDS: HYDROmorphone 0.5 MG/0.5 ML SYRINGE IVP PRN (20:31)
[2024-04-01 20:59] LABS: Glucose,Whole Blood 203 mg/dL (70-110)
[2024-04-01] MEDS: KETOROLAC 15 MG/ML 1 ML VIAL IVP PRN (21:41)
[2024-04-02 06:08] LABS: Glucose,Whole Blood 156 mg/dL (70-110)
--- NOTE | 2024-04-02 07:50 | XR ---
EXAMINATION TYPE: XR chest 2V DATE OF EXAM: 04/02/2024 COMPARISON: 04/01/2024 HISTORY: Postop CABG TECHNIQUE: 2 views of the chest are submitted FINDINGS: Basilar linear atelectasis with tiny effusions. Postoperative CABG changes. No pneumothorax present. No evidence for pneumothorax. No pleural effusion. The cardiac silhouette size is within normal limits. The osseous structures are grossly intact. IMPRESSION: 1. Basilar linear atelectasis with tiny effusions. Postoperative CABG changes. No pneumothorax prese nt. [facility], , 04/02/2024 7:48 AM
[2024-04-02 08:17] LABS: Basophils # (A) 0.1 k/uL (0-0.2); Basophils % (A) 0 %; Eosinophils # (A) 0.3 k/uL (0-0.7); Eosinophils % (A) 2 %; HCT 34.4 % (39.0-53.0); HGB 11.4 gm/dL (13.0-17.5); Lymphocytes # (A) 0.9 k/uL (1.0-4.8); Lymphocytes % (A) 8 %; MCH 30.7 pg (25.0-35.0); MCHC 33.2 g/dL (31.0-37.0); MCV 92.7 fL (80.0-100.0); Mean Platelet Volume 8.3; Monocytes # (A) 0.8 k/uL (0-1.0); Monocytes % (A) 7 %; Neutrophils # (A) 9.9 k/uL (1.3-7.7); Neutrophils % (A) 81 %; Platelet Count 154 k/uL (150-450); RBC 3.71 m/uL (4.30-5.90); WBC 12.3 k/uL (3.8-10.6)
[2024-04-02 08:47] LABS: ALT 12 U/L (4-49); AST 31 U/L (17-59); African American GFR (CKD) >90 (>60 ml/min/1.73 sqM); Albumin 3.3 g/dL (3.5-5.0); Alkaline Phosphatase 79 U/L (38-126); Anion Gap 8 mmol/L; Blood Urea Nitrogen 26 mg/dL (9-20); Calcium 8.2 mg/dL (8.4-10.2); Carbon Dioxide 19 mmol/L (22-30); Chloride 107 mmol/L (98-107); Glucose 133 mg/dL (74-99); Non-African American GFR(CKD) 86 (>60 ml/min/1.73 sqM); Potassium 4.3 mmol/L (3.5-5.1); Sodium 134 mmol/L (137-145); Total Bilirubin 1.1 mg/dL (0.2-1.3); Total Protein 5.8 g/dL (6.3-8.2)
--- NOTE | 2024-04-02 11:09 | P.PN ---
Subjective Progress Note Date: 04/01/24 Principal diagnosis: Severe aortic stenosis, status post aortic valve replacement Postop vent support successfully been extubated on supplemental oxygen Basal atelectasis continue deep breathing side incentive spirometry Hypertension, on Cleviprex drip, continue to titrate down reinitiate home antihypertensive agents Sleep disordered breathing and sleep apnea will discuss with patient again about importance of using CPAP machine Coronary artery disease status post stent in RCA and circumflex doing well Dyslipidemia peripheral vascular disease obesity continue expectant treatment with high intensity statins antiplatelet agent April 01, 2024, patient seen evaluate examined while covering for Dr. Joshua Carter, patient has been moved out of the ICU to stepdown unit, amiodarone has been switched to p.o. tolerating very well, patient sitting up in the chair jonathan thing comfortably, on nasal cannula, blood pressure improved off of IV Cleviprex on oral antihypertensive agents which have been escalated, 69-year-old male seen evaluate examined, patient admitted electively after aortic valve replacement, patient successfully weaned and extubated sitting upright on the chair have 2 chest tubes 1 likely to be removed. Patient baseline problems significant for coronary artery disease history of stent placement on March 06, 2024 in RCA and circumflex. Workup and evaluation revealed that patient has preserved LV function however noted to have severe degree of aortic stenosis at that time. It is it was recurrent recommended to undergo aortic valve replacement today he is postop day #1 slightly hypertensive on Cleviprex drip being titrated down. Other active medical issues include diabetes mellitus type 2, dyslipidemia, hypertension hypertensive cardiovascular disease, sleep disordered breathing and sleep apnea with a failed trial of CPAP and returned the CPAP machine patient is a ex-smoker Objective - Vital Signs Vital signs: Vital Signs Temp 97.6 F 04/01/24 16:25 Pulse 69 04/01/24 16:25 Resp 16 04/01/24 16:25 BP 142/67 04/01/24 16:25 Pulse Ox 96 04/01/24 16:25 FiO2 60 03/31/24 03:54 Intake & Output 03/31/24 04/01/24 04/01/24 18:59 06:59 18:59 Intake Total 2142.686 1146.885 984 Output Total 609 565 755 Balance 1533.686 581.885 229 Weight 142.6 kg 143.4 kg Intake: IV 759 432 284 ACETAMINOPHEN IV (For NPO 100 ) 1,000 mg In Empty Bag 1 bag @ 400 mls/hr IVPB Q6HR [facility] Rx#:[id number] CO/CI 20 Invasive Line 5 20 Pressure Bags 99 72 24 Sodium Chloride 0.9% 1, 540 360 240 000 ml @ 20 mls/hr IV . Q24H [facility] Rx#:[id number] Intake, IV Titration 63.686 74.885 Amount Clevidipine Butyrate 25 29.767 35.133 mg In Empty Bag 1 bag @ 1 MG/HR 2 mls/hr IV .Q24H [facility] Rx#:[id number] Insulin Regular 100 unit 33.919 39.752 In Sodium Chloride 0.9% 100 ml @ Per Protocol IV .Q0M [facility] Rx#:[id number] Oral 1320 640 700 Output: Chest Tube Drainage 234 220 20 Left Pleural/Mediastinal 104 120 10 Mediastinal 130 100 10 Urine 375 345 735 Other: Voiding Method Indwelling Catheter Indwelling Catheter Toilet Urinal ABP, PAP, CO, CI - Last Documented Arterial Blood Pressure 191/58 Pulmonary Artery Pressure 41/16 Cardiac Output 6.5 Cardiac Index 2.5 - Exam - Constitutional General appearance: average body habitus, cooperative, disheveled - EENT Eyes: EOMI, PERRLA ENT: normal oropharynx Ears: bilateral: normal - Neck Neck: normal ROM Carotids: bilateral: upstroke normal - Respiratory Respiratory: bilateral: diminished - Cardiovascular Rhythm: regular Heart sounds: normal: S1, S2 - Integumentary Integumentary: normal turgor - Neurologic Neurologic: CNII-XII intact - Musculoskeletal Musculoskeletal: gait normal, generalized weakness, strength equal bilaterally - Psychiatric Psychiatric: A&O x's 3, appropriate affect, intact judgment & insight - Labs CBC & Chem 7: 04/02/24 07:39 04/02/24 07:39 Labs: Abnormal Lab Results - Last 24 Hours (Table) 03/31/24 03/31/24 03/31/24 Range/Units 18:24 19:01 20:00 WBC (3.8-10.6) k/uL RBC (4.30-5.90) m/uL Hgb (13.0-17.5) gm/dL Hct (39.0-53.0) % Plt Count (150-450) k/uL Neutrophils # (1.3-7.7) k/uL Monocytes # (0-1.0) k/uL Sodium (137-145) mmol/L Chloride (98-107) mmol/L Carbon Dioxide (22-30) mmol/L BUN (9-20) mg/dL Glucose (74-99) mg/dL POC Glucose (mg/dL) 199 H 204 H 167 H (70-110) mg/dL Calcium (8.4-10.2) mg/dL Total Protein (6.3-8.2) g/dL Albumin (3.5-5.0) g/dL 03/31/24 03/31/24 04/01/24 Range/Units 21:08 22:08 00:15 WBC (3.8-10.6) k/uL RBC (4.30-5.90) m/uL Hgb (13.0-17.5) gm/dL Hct (39.0-53.0) % Plt Count (150-450) k/uL Neutrophils # (1.3-7.7) k/uL Monocytes # (0-1.0) k/uL Sodium (137-145) mmol/L Chloride (98-107) mmol/L Carbon Dioxide (22-30) mmol/L BUN (9-20) mg/dL Glucose (74-99) mg/dL POC Glucose (mg/dL) 155 H 129 H 135 H (70-110) mg/dL Calcium (8.4-10.2) mg/dL Total Protein (6.3-8.2) g/dL Albumin (3.5-5.0) g/dL 04/01/24 04/01/24 04/01/24 Range/Units 01:04 02:20 03:27 WBC (3.8-10.6) k/uL RBC (4.30-5.90) m/uL Hgb (13.0-17.5) gm/dL Hct (39.0-53.0) % Plt Count (150-450) k/uL Neutrophils # (1.3-7.7) k/uL Monocytes # (0-1.0) k/uL Sodium (137-145) mmol/L Chloride (98-107) mmol/L Carbon Dioxide (22-30) mmol/L BUN (9-20) mg/dL Glucose (74-99) mg/dL POC Glucose (mg/dL) 133 H 133 H 117 H (70-110) mg/dL Calcium (8.4-10.2) mg/dL Total Protein (6.3-8.2) g/dL Albumin (3.5-5.0) g/dL 04/01/24 04/01/24 04/01/24 Range/Units 04:10 04:10 04:11 WBC 15.7 H (3.8-10.6) k/uL RBC 3.80 L (4.30-5.90) m/uL Hgb 11.6 L (13.0-17.5) gm/dL Hct 35.2 L (39.0-53.0) % Plt Count 135 L (150-450) k/uL Neutrophils # 12.4 H (1.3-7.7) k/uL Monocytes # 1.1 H (0-1.0) k/uL Sodium 131 L (137-145) mmol/L Chloride 109 H (98-107) mmol/L Carbon Dioxide 21 L (22-30) mmol/L BUN 22 H (9-20) mg/dL Glucose 110 H (74-99) mg/dL POC Glucose (mg/dL) 120 H (70-110) mg/dL Calcium 8.0 L (8.4-10.2) mg/dL Total Protein 5.8 L (6.3-8.2) g/dL Albumin 3.4 L (3.5-5.0) g/dL 04/01/24 04/01/24 04/01/24 Range/Units 05:14 06:22 07:14 WBC (3.8-10.6) k/uL RBC (4.30-5.90) m/uL Hgb (13.0-17.5) gm/dL Hct (39.0-53.0) % Plt Count (150-450) k/uL Neutrophils # (1.3-7.7) k/uL Monocytes # (0-1.0) k/uL Sodium (137-145) mmol/L Chloride (98-107) mmol/L Carbon Dioxide (22-30) mmol/L BUN (9-20) mg/dL Glucose (74-99) mg/dL POC Glucose (mg/dL) 118 H 128 H 133 H (70-110) mg/dL Calcium (8.4-10.2) mg/dL Total Protein (6.3-8.2) g/dL Albumin (3.5-5.0) g/dL 04/01/24 04/01/24 04/01/24 Range/Units 09:49 11:32 16:40 WBC (3.8-10.6) k/uL RBC (4.30-5.90) m/uL Hgb (13.0-17.5) gm/dL Hct (39.0-53.0) % Plt Count (150-450) k/uL Neutrophils # (1.3-7.7) k/uL Monocytes # (0-1.0) k/uL Sodium (137-145) mmol/L Chloride (98-107) mmol/L Carbon Dioxide (22-30) mmol/L BUN (9-20) mg/dL Glucose (74-99) mg/dL POC Glucose (mg/dL) 118 H 143 H 151 H (70-110) mg/dL Calcium (8.4-10.2) mg/dL Total Protein (6.3-8.2) g/dL Albumin (3.5-5.0) g/dL Assessment and Plan Assessment: Severe aortic stenosis, status post aortic valve replacement Postop vent support successfully been extubated on supplemental oxygen Basal atelectasis continue deep breathing side incentive spirometry Hypertension, on Cleviprex drip, continue to titrate down reinitiate home antihypertensive agents Sleep disordered breathing and sleep apnea will discuss with patient again about importance of using CPAP machine Coronary artery disease status post stent in RCA and circumflex doing well Dyslipidemia peripheral vascular disease obesity continue expectant treatment with high intensity statins antiplatelet agent Plan: As above Time with Patient: Greater than 30
[2024-04-02 12:19] LABS: Glucose,Whole Blood 161 mg/dL (70-110)
--- NOTE | 2024-04-02 14:16 | P.PN ---
Subjective Progress Note Date: 04/02/24 PROGRESS NOTE The patient is a 69-year-old male who was admitted today and underwent aortic valve replacement. He is intubated and sedated. He is followed on a regular basis with Dr. Mims and underwent cardiac catheterization on 06 March that revealed patent stents of the RCA and left circumflex. During the same admission he underwent a GAMA that showed a mean gradient 53 mmHg with a peak of 88 with normal ventricle systolic function and tricuspid aortic valve. He underwent a placement of a 27 mm Inspiris Resilia bovine pericardial valve with occlusion of the left atrial appendage. He is in sinus mechanism on no vasopressors, hemodynamically stable. Postsurgical intervention is mean gradie nt was 9 mmHg. His urine output is good. His coronaries factors are positive for hypertension, diabetes, hyperlipidemia March 31: The patient is feeling well, sitting up in the chair, extubated. Hemodynamically stable. He has some soreness in the chest but no dizziness or palpitation. He has no nausea or vomiting. He is tolerating p.o. He is using his incentive spirometry. April 01: The patient is doing well this morning, he has mild chest soreness and throat discomfort. He continues to be in sinus mechanism, ambulating. His blood pressure is stable and he is on no vasopressors. He denies any nausea or vomiting. His chest x-ray shows no significant changes. April 02: Patient is out of bed in chair. He is having pain issues and requiring frequent pain medications. He does feel better overall. He has a decreased appetite and has not had a bowel movement, is passing gas. He does have 12+ edema lower extremities. No chest pain or pressure. PHYSICAL EXAMINATION: Blood pressure 135/70 heart rate 65 LUNGS: Decreased breath sounds at the bases HEART: Regular rate and rhythm, S1, S2. No S3. Systolic ejection murmur, no rub, chest incision with no redness or drainage, heart regular. ABDOMEN: Soft, nontender EXTREMETIES: No edema LAB: Potassium 4.3, BUN 26, creatinine 0.91 IMPRESSION: 1. Status post aortic valve replacement 2. History of stenting of the RCA and the left circumflex, stable 3. History of hypertension 4. History of hyperlipidemia PLAN: 1. Continue present therapy 2. Continue incentive spirometry 3. Increase physical activity 4. Will likely need a short course of diuretic for lower extremity edema, will discuss with surgical team. 5. Depending on his progress further recommendations will be made Objective - Vital Signs Vital signs: Vital Signs Temp 97.9 F 04/01/24 20:40 Pulse 68 04/02/24 12:43 Resp 16 04/02/24 10:56 BP 94/59 04/02/24 10:56 Pulse Ox 92 L 04/02/24 10:56 FiO2 60 03/31/24 03:54 Intake & Output 04/01/24 04/02/24 04/02/24 18:59 06:59 18:59 Intake Total 1104 Output Total 755 Balance 349 Weight 147 kg Intake: IV 284 Invasive Line 5 20 Pressure Bags 24 Sodium Chloride 0.9% 1, 240 000 ml @ 20 mls/hr IV . Q24H [facility] Rx#:[id number] Oral 820 Output: Chest Tube Drainage 20 Left Pleural/Mediastinal 10 Mediastinal 10 Urine 735 Other: Voiding Method Toilet Toilet Toilet Urinal Urinal Urinal # Voids 1 ABP, PAP, CO, CI - Last Documented Arterial Blood Pressure 191/58 Pulmonary Artery Pressure 41/16 Cardiac Output 6.5 Cardiac Index 2.5 - Labs CBC & Chem 7: 04/02/24 07:39 04/02/24 07:39 Labs: Abnormal Lab Results - Last 24 Hours (Table) 04/01/24 04/01/24 04/02/24 Range/Units 16:40 20:57 06:05 WBC (3.8-10.6) k/uL RBC (4.30-5.90) m/uL Hgb (13.0-17.5) gm/dL Hct (39.0-53.0) % Neutrophils # (1.3-7.7) k/uL Lymphocytes # (1.0-4.8) k/uL Sodium (137-145) mmol/L Carbon Dioxide (22-30) mmol/L BUN (9-20) mg/dL Glucose (74-99) mg/dL POC Glucose (mg/dL) 151 H 203 H 156 H (70-110) mg/dL Calcium (8.4-10.2) mg/dL Total Protein (6.3-8.2) g/dL Albumin (3.5-5.0) g/dL 09/30/24 09/30/24 09/30/24 Range/Units 07:39 07:39 12:17 WBC 12.3 H (3.8-10.6) k/uL RBC 3.71 L (4.30-5.90) m/uL Hgb 11.4 L (13.0-17.5) gm/dL Hct 34.4 L (39.0-53.0) % Neutrophils # 9.9 H (1.3-7.7) k/uL Lymphocytes # 0.9 L (1.0-4.8) k/uL Sodium 134 L (137-145) mmol/L Carbon Dioxide 19 L (22-30) mmol/L BUN 26 H (9-20) mg/dL Glucose 133 H (74-99) mg/dL POC Glucose (mg/dL) 161 H (70-110) mg/dL Calcium 8.2 L (8.4-10.2) mg/dL Total Protein 5.8 L (6.3-8.2) g/dL Albumin 3.3 L (3.5-5.0) g/dL
[2024-04-02 16:58] LABS: Glucose,Whole Blood 151 mg/dL (70-110)
[2024-04-02] MEDS: HYDROcodone/APAP 5-325MG 1 EACH TAB PO PRN (16:58)
[2024-04-02] MEDS: FUROSEMIDE 10 MG/ML 4 ML VIAL IV STA (16:59)
[2024-04-02] MEDS: bisacodyL 10 MG SUPP RECTAL PRN (16:59)
--- NOTE | 2024-04-02 17:09 | P.PN ---
Subjective Progress Note Date: 04/02/24 Principal diagnosis: Symptomatic severe calcific aortic stenosis. Past medical history significant for hypertension, hyperlipidemia, diabetes mellitus type 2 with a preoperative h emoglobin A1c 5.9%, coronary artery disease with prior PCI to his right coronary artery and left circumflex coronary artery, and remote history of nicotine dependence quit smoking in 2017. POD #3 Aortic valve replacement with 27 mm Inspiris Resilia bovine pericardial valve, exclusion of left atrial appendage with 35mm AtriCure clip. Postoperative acute blood loss anemia, expected given hemodilution and cardiopulmonary bypass. The patient was seen and examined in follow-up today April 02, 2024 at his bedside on the third floor cardiac stepdown unit. The patient is sitting up to the bedside chair, is awake, alert, oriented x 3 and is in no acute apparent distress. Denies any complaints of shortness of breath, although is complaining of some episodes of pain with coughing. Currently rating his pain 5 out of 10 on the pain scale. He has been up ambulating in the cardiac stepdown unit hallway with standby assistance nursing and therapy staff and tolerating well. Atrial and ventricular epicardial pacemaker wires remain in place and are grounded. Oxygen saturations are 94% on room air. Remote telemetry is showing normal sinus rhythm heart rate 67 bpm. He remains on amiodarone 200 mg p.o. twice daily and Coreg 6.125 mg p.o. twice daily. Chest x-ray and laboratory results were reviewed. Objective - Vital Signs Vital signs: Vital Signs Temp 97.9 F 04/01/24 20:40 Pulse 68 04/02/24 16:07 Resp 16 04/02/24 10:56 BP 94/59 04/02/24 10:56 Pulse Ox 92 L 04/02/24 10:56 FiO2 60 03/31/24 03:54 Intake & Output 04/01/24 04/02/24 04/02/24 18:59 06:59 18:59 Intake Total 1104 120 Output Total 755 Balance 349 120 Weight 147 kg Intake: IV 284 Invasive Line 5 20 Pressure Bags 24 Sodium Chloride 0.9% 1, 240 000 ml @ 20 mls/hr IV . Q24H [facility] Rx#:[id number] Oral 820 120 Output: Chest Tube Drainage 20 Left Pleural/Mediastinal 10 Mediastinal 10 Urine 735 Other: Voiding Method Toilet Toilet Toilet Urinal Urinal Urinal # Voids 1 2 ABP, PAP, CO, CI - Last Documented Arterial Blood Pressure 191/58 Pulmonary Artery Pressure 41/16 Cardiac Output 6.5 Cardiac Index 2.5 - Exam CONSTITUTIONAL: Sitting up to the bedside chair in the intensive care unit, appears comfortable, cooperative, no apparent acute distress. HEENT: Neck is supple, no JVD, no lymphadenopathy. Right IJ Cordis in place and functioning. RESPIRATORY: Lungs sounds essentially clear throughout, diminished to his bilateral bases. Respirations are symmetrical and nonlabored. Currently on room air with oxygen saturations 94%. Able to achieve 1500 mL on his incentive spirometry. Strong cough. CARDIOVASCULAR: Regular rhythm and rate. S1 and S2 present, negative for S3, gallop or murmur. Sternum is stable. Palpable peripheral pulses bilaterally. No calf pain or tenderness noted. Heart hugger in place with patient demonstrating appropriate use. Knee-high LAURENCE hose and sequential compression devices in place to his bilateral lower extremities. GASTROINTESTINAL: Abdomen soft, nontender, nondistended. Active bowel sounds p resent 4 quadrants. Tolerating diet. Passing flatus. No guarding or rigidity. GENITOURINARY: Continues to void. INTEGUMENTARY: Skin is warm and dry with no evidence of clubbing or cyanosis. Midline sternal incision clean dry and well approximated, covered with dry intact dressing. NEUROLOGIC: Cranial nerves II through XII intact. No focal deficits. MUSKULOSKELETAL: Able to move all extremities, strength equal bilaterally, generalized weakness. PSYCHIATRIC: Alert and oriented to person place and time, appropriate affect, intact judgment and insight. INVASIVE LINES AND TUBES: Atrial and ventricular epicardial pacemaker wires present, and are grounded. - Allied health notes Allied health notes reviewed: nursing - Labs CBC & Chem 7: 04/02/24 07:39 04/02/24 07:39 Labs: Abnormal Lab Results - Last 24 Hours (Table) 04/01/24 04/02/24 04/02/24 Range/Units 20:57 06:05 07:39 WBC 12.3 H (3.8-10.6) k/uL RBC 3.71 L (4.30-5.90) m/uL Hgb 11.4 L (13.0-17.5) gm/dL Hct 34.4 L (39.0-53.0) % Neutrophils # 9.9 H (1.3-7.7) k/uL Lymphocytes # 0.9 L (1.0-4.8) k/uL Sodium (137-145) mmol/L Carbon Dioxide (22-30) mmol/L BUN (9-20) mg/dL Glucose (74-99) mg/dL POC Glucose (mg/dL) 203 H 156 H (70-110) mg/dL Calcium (8.4-10.2) mg/dL Total Protein (6.3-8.2) g/dL Albumin (3.5-5.0) g/dL 04/02/24 04/02/24 04/02/24 Range/Units 07:39 12:17 16:56 WBC (3.8-10.6) k/uL RBC (4.30-5.90) m/uL Hgb (13.0-17.5) gm/dL Hct (39.0-53.0) % Neutrophils # (1.3-7.7) k/uL Lymphocytes # (1.0-4.8) k/uL Sodium 134 L (137-145) mmol/L Carbon Dioxide 19 L (22-30) mmol/L BUN 26 H (9-20) mg/dL Glucose 133 H (74-99) mg/dL POC Glucose (mg/dL) 161 H 151 H (70-110) mg/dL Calcium 8.2 L (8.4-10.2) mg/dL Total Protein 5.8 L (6.3-8.2) g/dL Albumin 3.3 L (3.5-5.0) g/dL - Imaging and Cardiology Chest x-ray: report reviewed, image reviewed Assessment and Plan Assessment: Symptomatic severe calcific aortic stenosis, status post aortic valve replacement with 27 mm Inspiris Resilia bovine pericardial valve History of hypertension Hyperlipidemia, treated, cholesterol 124, LDL 58.4, triglycerides 101 Diabetes mellitus type 2 with a preoperative hemoglobin A1c 5.9% History of coronary artery disease status post PCI to the right coronary artery and left circumflex coronary artery Remote history of nicotine dependence quit smoking in 2017, preoperative FEV1 78% of predicted value Postoperative acute blood loss anemia, expected given hemodilution and cardiopulmonary bypass Plan: Continue to maximize medical therapy with aspirin, statin, Plavix, and beta- polly. Will increase beta-polly therapy as tolerated, currently on home dose of Coreg 6.25 mg p.o. twice daily. Continue amiodarone 200 mg p.o. twice daily in place for atrial fibrillation prophylaxis. Currently in normal sinus rhythm. Encourage incentive spirometry use 10 times every hour while awake. Bronchodilators per pulmonology. Increase activity, ambulate as tolerated. PT/OT/cardiac rehab following. Will monitor daily labs and chest x-rays. Electrolyte replacement per protocol. GI/DVT prophylaxis. Pain control per current medication regimen. Insulin management per internal medicine, preoperative hemoglobin A1c 5.9%. Continue to monitor and record strict accurate intake and output. May bladder scan every 6 hours and as needed postvoid residuals, if greater than 300 mL of urine please straight cath. Daily weights. Continue losartan 50 mg p.o. daily added for blood pressure control and afterload reduction. Lasix 40 mg IV x 1 now. Shower daily. More recommendations to follow based on patient's clinical course. Time with Patient: Greater than 30
--- NOTE | 2024-04-02 17:47 | P.PN ---
Subjective Progress Note Date: 04/02/24 69-year-old male patient, currently being seen in the intensive care and following an aortic valve replacement surgery. The patient underwent an AVR postop, the patient was brought into the intensive care unit for further evaluation and treatment. The patient also is known to have coronary artery disease. The patient underwent cardiac catheterization on 03/06/2024 and the patient had patent stents to RCA and circumflex. Previous GAMA showed a preserved LV function with severe aortic valve stenosis and based on that the patient underwent a surgical valve replacement. Surgery was done and estimated blood loss was 500 cc. At this point in time, the patient is intubated on the mechanical ventilator. The patient is on propofol which is running at 25 mcg/kg/min. The patient is getting a normal sinus rhythm at a rate of 65. Intraoperatively, the patient was atrially paced and currently he has intrinsic rhythm. He is hypertensive on Cleviprex drip for blood pressure control which is running at 8 mg an hour. Most recent cardiac output is 6.2 with an index of 2.4. PA pressures of 37/70. CVP is 10. The patient remains on assist-control mode of mechanical vent at rate of 12, tidal volume of 550, FiO2 of 100% with a PEEP of 10. The blood gas showed a pH of 7.28 with a pCO2 of 53 and pO2 of 115 and a chest x-ray showed adequate expansion of both lungs. No evidence of any pneumothorax. The patient has a left pleural mediastinal chest tube in place. Orotracheal tube is in a good location. No consolidation. No airspace disease. [place]-Karen catheter is in a good location. Output from the chest tubes has been 100 from the left pleural and 70 from the mediastinal chest tube since arrival from the operating room. Excellent urine output for now. Remains on amiodarone 0.5 mg/min as maintenance. Afebrile. On 03/31/2024, the patient is being seen for a follow-up. The patient is postop day #1 following a aortic valve replacement. Patient sitting up in a chair and the patient is calm and comfortable. Hemodynamically stable. The patient was weaned off the mechanical ventilator and the patient was extubated without any major difficulties and the patient is currently using incentive spirometer. He is currently on 2 L of O2 nasal cannula. Cardiac output is at 7.5 with an index of 2.9. PA pressures are 42/18. The CVP is currently at 13. Remains on Cleviprex drip which is running at 5 mg an hour. Remains on amiodarone drip at 0.5 mg/min and the patient is also on insulin drip at 4.5 units an hour. Chest tubes are also in place. Output from the chest has been noted and the mediastinal chest tube produced 300 cc over the past 8 hours) over the past 24 hours. Left lower chest tube was produced 190 cc over the past 24 hours. As for the blood work, the patient's WBC count is at 16.5 anemia of 12.7 and platelet count of 159. Electrolytes are normal. BUN is 40 with a creatinine of 0.7. Chest x-ray was noted from today and it shows no acute abnormalities. Mild pleural effusion. No evidence of a pneumothorax. Chest tubes are in place. The tube is not removed. No other significant events overnight. Mentation is adequate and the patient is alert and awake and communicating. On 04/01/2024, the patient is being seen for a follow-up. The patient is doing well with no specific complaints. Sitting up in a chair. Is currently on 60 days of oxygen by nasal cannula. The patient is hemodynamically stable and [place]-Karen catheters were removed. The patient is currently off Cleviprex drip and is on a combination of Coreg 6.25 mg twice daily and Cozaar 50 mg p.o. daily for blood pressure control. The patient remains on amiodarone and he remains in normal sinus rhythm. The patient had a mediastinal and the left lower chest tube and output is minimal at this point in time. Using incentive spirometer, following approximately 8000. Remains on insulin drip at 3 units an hour. The blood sugars under adequate control. The white cell count 15.7, hemoglobin 11.6 and a platelet count is at 135. BUN is 22 with a creatinine of 1.1 and sodium levels at 131 with a potassium level of 4.1 and a serum bicarb is at 21. No other significant events overnight. Surgical wound site is dry clean and intact. Chest x-ray shows no evidence of any pneumothorax. The patient is seen today April 02, 2024 in follow-up on the selective care unit. He is currently sitting up in a chair at the bedside. Awake and alert in no acute distress. Denies any worsening shortness of breath, cough or congestion. Operative day #3. Chest x-ray reveals basilar linear atelectasis with tiny effusion. The patient continues to work with the incentive spirometer . Maintaining good O2 saturations in the 90s on room air. White count 12.3. Hemoglobin 11.4. Platelets 154. Sodium 134. Potassium 4.3. Bicarb 19. BUN 26. Creatinine 0.91. Glucose 133. He remains on bronchodilators. Heparin for DVT prophylaxis. Objective - Vital Signs Vital signs: Vital Signs Temp 97.9 F 04/01/24 20:40 Pulse 68 04/02/24 16:07 Resp 16 04/02/24 16:00 BP 149/66 04/02/24 16:00 Pulse Ox 94 L 04/02/24 16:00 FiO2 60 03/31/24 03:54 Intake & Output 04/01/24 04/02/24 04/02/24 18:59 06:59 18:59 Intake Total 1104 120 Output Total 755 Balance 349 120 Weight 147 kg Intake: IV 284 Invasive Line 5 20 Pressure Bags 24 Sodium Chloride 0.9% 1, 240 000 ml @ 20 mls/hr IV . Q24H INDIGO Rx#:[id number] Oral 820 120 Output: Chest Tube Drainage 20 Left Pleural/Mediastinal 10 Mediastinal 10 Urine 735 Other: Voiding Method Toilet Toilet Toilet Urinal Urinal Urinal # Voids 1 2 ABP, PAP, CO, CI - Last Documented Arterial Blood Pressure 191/58 Pulmonary Artery Pressure 41/16 Cardiac Output 6.5 Cardiac Index 2.5 - Exam GENERAL EXAM: Alert, active, comfortable in no apparent distress. HEAD: Normocephalic. EYES: Normal reaction of pupils, equal size. NOSE: Clear with pink turbinates. THROAT: No erythema or exudates. NECK: No masses, no JVD. CHEST: No chest wall deformity. Heart hugger in place. LUNGS: Equal air entry with no crackles, wheeze, rhonchi or dullness. CVS: S1 and S2 normal with no audible murmur, regular rhythm. ABDOMEN: No hepatosplenomegaly, normal bowel sounds, no guarding or rigidity. SPINE: No scoliosis or deformity SKIN: No rashes CENTRAL NERVOUS SYSTEM: No focal deficits, tone is normal in all 4 extremities. EXTREMITIES: There is no peripheral edema. No clubbing, no cyanosis. Peripheral pulses are intact. - Labs CBC & Chem 7: 04/02/24 07:39 04/02/24 07:39 Labs: Abnormal Lab Results - Last 24 Hours (Table) 04/01/24 04/02/24 04/02/24 Range/Units 20:57 06:05 07:39 WBC 12.3 H (3.8-10.6) k/uL RBC 3.71 L (4.30-5.90) m/uL Hgb 11.4 L (13.0-17.5) gm/dL Hct 34.4 L (39.0-53.0) % Neutrophils # 9.9 H (1.3-7.7) k/uL Lymphocytes # 0.9 L (1.0-4.8) k/uL Sodium (137-145) mmol/L Carbon Dioxide (22-30) mmol/L BUN (9-20) mg/dL Glucose (74-99) mg/dL POC Glucose (mg/dL) 203 H 156 H (70-110) mg/dL Calcium (8.4-10.2) mg/dL Total Protein (6.3-8.2) g/dL Albumin (3.5-5.0) g/dL 04/02/24 04/02/24 04/02/24 Range/Units 07:39 12:17 16:56 WBC (3.8-10.6) k/uL RBC (4.30-5.90) m/uL Hgb (13.0-17.5) gm/dL Hct (39.0-53.0) % Neutrophils # (1.3-7.7) k/uL Lymphocytes # (1.0-4.8) k/uL Sodium 134 L (137-145) mmol/L Carbon Dioxide 19 L (22-30) mmol/L BUN 26 H (9-20) mg/dL Glucose 133 H (74-99) mg/dL POC Glucose (mg/dL) 161 H 151 H (70-110) mg/dL Calcium 8.2 L (8.4-10.2) mg/dL Total Protein 5.8 L (6.3-8.2) g/dL Albumin 3.3 L (3.5-5.0) g/dL Assessment and Plan Assessment: Severe aortic stenosis and the patient is status post aortic valve replacement, postop day #2. , Output is minimal at this point in time.Hemodynamically stable. The patient is on no pressors. The patient remains on amiodarone drip for A-fib prophylaxis. Cardiac rhythm is sinus. Postthoracotomy, the patient has been extubated to nasal cannula. Chest tubes are still in place, output is minimal at this point in time. Hypertension with postop elevation in the blood pressure, currently off Cl eviprex and the patient is currently on a combination of Coreg and Cozaar Coronary artery disease with previous non-ST segment elevation myocardial infarction. Cardiac catheterization from 03/06/2024 showed patent coronary stent to the circumflex and the RCA Hypertension Hyperlipidemia Peripheral vascular disease Obesity Former smoker Plan The patient was seen and evaluated Chest x-ray, labs and medications reviewed Currently stable and on room air Working well with the incentive spirometer Increase his activity as tolerated Probable discharge in a.m. I have personally seen and examined the patient, performed the documentation and the assessment and plan as written. Number of minutes spent on the visit: 10.
[2024-04-02 19:54] LABS: Glucose,Whole Blood 154 mg/dL (70-110)
--- NOTE | 2024-04-02 23:03 | PN ---
PROGRESS NOTE SUBJECTIVE: A 69-year-old white male, status post bypass surgery. Had blood loss anemia postop. He has constipation. He is probably going to go home tomorrow. Some chest pain with cough and pain rating 5/10. He is on new medications. OBJECTIVE: VITAL SIGNS: Oxygen is on room air. Temp 97.9, pulse 68, respiratory rate 16, blood pressure is low at 94/59, . CARDIOVASCULAR: S1, S2. LUNGS: Clear. GI: Soft. HEMATOLOGY: Negative Homans. LABORATORY DATA: White count is 12.3, hemoglobin is 11.4. Sugars 150s to 200s. MEDICATIONS: 1. Aspirin. 2. Statin. 3. Plavix. 4. Beta polly. 5. Coreg. 6. . 7. Amiodarone. Normal sinus rhythm . He is going to go home with his daughter. Prognosis guarded. Please see further orders for discharge tomorrow. MMODL / IJN: [id number] /
[2024-04-03 06:13] LABS: Glucose,Whole Blood 128 mg/dL (70-110)
--- NOTE | 2024-04-03 07:56 | XR ---
EXAMINATION TYPE: XR chest 2V DATE OF EXAM: 04/03/2024 COMPARISON: 04/02/2024 HISTORY: post op AVR TECHNIQUE: Frontal and lateral views of the chest are obtained. FINDINGS: Scattered senescent parenchymal changes noted. Hyperinflation compatible with COPD. Post AVR changes. Strandy basilar parenchymal density. No evidence for pneumothorax. No evidence for infiltrate. No evidence for atelectasis. Heart size is stable. Mediastinal structures are stable and grossly unremarkable. No evidence for hilar prominence. Degenerative changes dorsal spine. IMPRESSION: 1. Post AVR changes. Strandy basilar parenchymal density. No evidence for pneumothorax. [facility], , 04/03/2024 7:53 AM
[2024-04-03 08:49] LABS: African American GFR (CKD) >90 (>60 ml/min/1.73 sqM); Anion Gap 6 mmol/L; Blood Urea Nitrogen 26 mg/dL (9-20); Calcium 8.3 mg/dL (8.4-10.2); Carbon Dioxide 21 mmol/L (22-30); Chloride 106 mmol/L (98-107); Glucose 124 mg/dL (74-99); Non-African American GFR(CKD) >90 (>60 ml/min/1.73 sqM); Sodium 133 mmol/L (137-145)
[2024-04-03 08:52] LABS: Magnesium 2.3 mg/dL (1.6-2.3); Potassium 4.6 mmol/L (3.5-5.1)
[2024-04-03 08:58] LABS: Basophils % (A) 0 %; Eosinophils # (A) 0.3 k/uL (0-0.7); Eosinophils % (A) 3 %; HCT 31.9 % (39.0-53.0); HGB 10.5 gm/dL (13.0-17.5); Lymphocytes # (A) 0.9 k/uL (1.0-4.8); Lymphocytes % (A) 10 %; MCH 30.4 pg (25.0-35.0); MCV 92.2 fL (80.0-100.0); Mean Platelet Volume 8.7; Monocytes # (A) 0.9 k/uL (0-1.0); Monocytes % (A) 10 %; Neutrophils # (A) 6.9 k/uL (1.3-7.7); Neutrophils % (A) 74 %; Platelet Count 194 k/uL (150-450); RBC 3.46 m/uL (4.30-5.90); RDW 13.6 % (11.5-15.5); WBC 9.3 k/uL (3.8-10.6)
--- NOTE | 2024-04-03 09:02 | P.PN ---
Subjective Progress Note Date: 04/03/24 Principal diagnosis: Symptomatic severe calcific aortic stenosis. Past medical history significant for hypertension, hyperlipidemia, diabetes mellitus type 2 with a preoperative h emoglobin A1c 5.9%, coronary artery disease with prior PCI to his right coronary artery and left circumflex coronary artery, and remote history of nicotine dependence quit smoking in 2017. POD #4 Aortic valve replacement with 27 mm Inspiris Resilia bovine pericardial valve, exclusion of left atrial appendage with 35mm AtriCure clip. Postoperative acute blood loss anemia, expected given hemodilution and cardiopulmonary bypass. The patient was seen and examined in follow-up today April 03, 2024 at his bedside on the third floor cardiac stepdown unit. He is currently sitting up to the bedside chair, is awake, alert, oriented x 3 and is in no acute apparent distress. Oxygen saturations are 97% on room air and he is achieving 1500 mL on his incentive spirometry with encouragement. Remote telemetry is showing normal sinus rhythm heart rate 64 bpm. He denies any complaints of shortness of breath at this time, and states his pain is well-controlled on the current pain medication regimen. States that he has been having some pain with coughing. He has been up ambulating in the cardiac stepdown unit hallway with standby assistance nursing and therapy staff and tolerating well. Discharge planning is in place. Chest x-ray and laboratory results reviewed. Objective - Vital Signs Vital signs: Vital Signs Temp 97.6 F 04/03/24 07:28 Pulse 96 04/03/24 07:28 Resp 17 04/03/24 07:28 BP 125/68 04/03/24 07:28 Pulse Ox 96 04/03/24 07:28 FiO2 60 03/31/24 03:54 Intake & Output 04/02/24 04/03/24 04/03/24 18:59 06:59 18:59 Intake Total 240 Output Total 100 Balance 140 Weight 146.2 kg Intake: Oral 240 Output: Urine 100 Other: Voiding Method Toilet Toilet Urinal Urinal # Voids 1 2 # Bowel Movements 1 3 ABP, PAP, CO, CI - Last Documented Arterial Blood Pressure 191/58 Pulmonary Artery Pressure 41/16 Cardiac Output 6.5 Cardiac Index 2.5 - Exam CONSTITUTIONAL: Sitting up to the bedside chair in the intensive care unit, appears comfortable, cooperative, no apparent acute distress. HEENT: Neck is supple, no JVD, no lymphadenopathy. RESPIRATORY: Lungs sounds essentially clear throughout, diminished to his bilateral bases. Respirations are symmetrical and nonlabored. Currently on room air with oxygen saturations 97%. Able to achieve 1500 mL on his incentive spirometry. Strong cough. CARDIOVASCULAR: Regular rhythm and rate. S1 and S2 present, negative for S3, gallop or murmur. Sternum is stable. Palpable peripheral pulses bilaterally. No calf pain or tenderness noted. Heart hugger in place with patient demonstrating appropriate use. Knee-high LAURENCE hose and sequential compression devices in place to his bilateral lower extremities. GASTROINTESTINAL: Abdomen soft, nontender, nondistended. Active bowel sounds present 4 quadrants. Tolerating diet. Passing flatus. No guarding or rigidity. Bowel movement this a.m. GENITOURINARY: Continues to void. INTEGUMENTARY: Skin is warm and dry with no evidence of clubbing or cyanosis. Midline sternal incision clean dry and well approximated, covered with dry intact dressing. NEUROLOGIC: Cranial nerves II through XII intact. No focal deficits. MUSKULOSKELETAL: Able to move all extremities, strength equal bilaterally. PSYCHIATRIC: Alert and oriented to person place and time, appropriate affect, intact judgment and insight. INVASIVE LINES AND TUBES: Atrial and ventricular epicardial pacemaker wires present, and are grounded. - Allied health notes Allied health notes reviewed: nursing - Labs CBC & Chem 7: 04/02/24 07:39 04/03/24 07:59 Labs: Abnormal Lab Results - Last 24 Hours (Table) 04/02/24 04/02/24 04/02/24 Range/Units 12:17 16:56 19:52 Sodium (137-145) mmol/L Carbon Dioxide (22-30) mmol/L BUN (9-20) mg/dL Glucose (74-99) mg/dL POC Glucose (mg/dL) 161 H 151 H 154 H (70-110) mg/dL Calcium (8.4-10.2) mg/dL 04/03/24 04/03/24 Range/Units 06:11 07:59 Sodium 133 L (137-145) mmol/L Carbon Dioxide 21 L (22-30) mmol/L BUN 26 H (9-20) mg/dL Glucose 124 H (74-99) mg/dL POC Glucose (mg/dL) 128 H (70-110) mg/dL Calcium 8.3 L (8.4-10.2) mg/dL - Imaging and Cardiology Chest x-ray: report reviewed, image reviewed Assessment and Plan Assessment: Symptomatic severe calcific aortic stenosis, status post aortic valve replacement with 27 mm Inspiris Resilia bovine pericardial valve History of hypertension Hyperlipidemia, treated, cholesterol 124, LDL 58.4, triglycerides 101 Diabetes mellitus type 2 with a preoperative hemoglobin A1c 5.9% History of coronary artery disease status post PCI to the right coronary artery and left circumflex coronary artery Remote history of nicotine dependence quit smoking in 2017, preoperative FEV1 78% of predicted value Postoperative acute blood loss anemia, expected given hemodilution and cardiopulmonary bypass Plan: Continue to maximize medical therapy with aspirin, statin, Plavix, and beta- polly. Will increase beta-polly therapy as tolerated, currently on home dose of Coreg 6.25 mg p.o. twice daily. Continue amiodarone 200 mg p.o. twice daily in place for atrial fibrillation prophylaxis. Currently in normal sinus rhythm. Encourage incentive spirometry use 10 times every hour while awake. Bronchodi lators per pulmonology. Increase activity, ambulate as tolerated. PT/OT/cardiac rehab following. Will monitor daily labs and chest x-rays. Electrolyte replacement per protocol. GI/DVT prophylaxis. Pain control per current medication regimen. Insulin management per internal medicine, preoperative hemoglobin A1c 5.9%. Continue to monitor and record strict accurate intake and output. May bladder scan every 6 hours and as needed postvoid residuals, if greater than 300 mL of urine please straight cath. Daily weights. Continue losartan 50 mg p.o. daily added for blood pressure control and afterload reduction. Lasix 40 mg IV x 1 now. Shower daily. Atrial and ventricular epicardial pacemaker wires were removed without incident. Bedrest for 1 hour post pacemaker wire removal. Discharge planning is in place, anticipate discharge home with home health care in the next 24 hours. More recommendations to follow based on patient's clinical course. Time with Patient: Greater than 30
[2024-04-03] MEDS: FUROSEMIDE 10 MG/ML 4 ML VIAL IV STA (09:42)
[2024-04-03 12:07] LABS: Glucose,Whole Blood 126 mg/dL (70-110)
--- NOTE | 2024-04-03 12:34 | P.DS ---
Providers Date of admission: 03/30/24 05:32 Expected date of discharge: 04/03/24 Attending physician: Forrest Vora Consults: 03/30/24 12:13 Consult Physician Routine Consulting Provider: Araceli Pantoja Consult Reason/Comments: Clinical Unit Coordinator Consult: post cardiac surgery Do you want consulting provider notified?: Yes Consult Physician Routine Consulting Provider: Joshua Carter Consult Reason/Comments: med mgmt Do you want consulting provider notified?: Yes Consult Physician Routine Consulting Provider: Bhaskar Vazquez Consult Reason/Comments: Vice Provost Consult: post cardiac surgery Do you want consulting provider notified?: Yes Primary care physician: [facility] Hospital Course: FINAL DIAGNOSIS: Symptomatic severe calcific aortic stenosis, status post aortic valve replacement with 27 mm Inspiris Resilia bovine pericardial valve History of hypertension Hyperlipidemia, treated, cholesterol 124, LDL 58.4, triglycerides 101 Diabetes mellitus type 2 with a preoperative hemoglobin A1c 5.9% History of coronary artery disease status post PCI to the right coronary artery and left circumflex coronary artery Remote history of nicotine dependence quit smoking in 2016, preoperative FEV1 78% of predicted value Postoperative acute blood loss anemia, expected given hemodilution and cardiopulmonary bypass PRINCIPAL PROCEDURE: 1. Aortic valve replacement with 27 mm Inspiris Resilia bovine pericardial valve 2. Occlusion left atrial appendage using a 35mm AtriCure clip 3. Intraoperative transesophageal echocardiogram performed by anesthesia HISTORY OF PRESENT ILLNESS: This is a 69-year-old gentleman who follows on an outpatient basis for his primary care with Dr. Joshua Carter and follows with Dr. Mims for his cardiology care. Patient has a past medical history significant for coronary artery disease with previous stenting of the right coronary artery and circumflex coronary artery and also has known aortic valve stenosis and regurgitation. The patient recently underwent a cardiac catheterization on March 06, 2024 which demonstrated patent stents to his right coronary artery and left circumflex coronary artery. The patient has had progressive shortness of breath with exertion with symptoms consistent with NYHA class II but has denied any dizziness, lightheadedness, presyncope or syncope. The patient also underwent a transesophageal echocardiogram on March 06, 2024 which demonstrated a normal biventricular systolic function, a trileaflet aortic valve with evidence of severe aortic valve stenosis with a mean gradient of 53 m mHg, a peak gradient of 88 mmHg, and mild to moderate mitral valve regurgitation. Subsequently, the patient was seen in the structural heart clinic for shared decision making with Dr. Mims and Dr. Forrest Vora from cardiothoracic surgery. It was discussed and recommended the patient would be better suited for a surgical aortic valve replacement. Risks and benefits of surgery were discussed with the patient by Dr. Vora including the STS risk score, knowing and understanding the risks the patient wished to proceed with the surgical option. HOSPITAL COURSE: The patient was brought to the preoperative area 03/30/24, prepared in the usual fashion, and subsequently taken to the operating room where Dr. Vora performed an Aortic valve replacement with 27 mm Inspiris Resilia bovine pericardial valve. Upon completion of surgery the patient was transferred to the cardiovascular intensive care unit where he was recovered and monitored hemodynamically. He was extubated, all lines, tubes, and drips were discontinued when appropriate, and transfer orders were placed for 3 S. cardiac stepdown unit, for further monitoring and rehabilitation. His oxygen was titrated down, he continued to work with physical and occupational therapy, he was tolerating oral diet, his pain was controlled, and he was ready to be discharged to home with visiting nurses [facility] [place] home health care on postoper ative day #4. He received written and verbal instruction regarding his medications, activity restrictions, signs and symptoms requiring physician notification, and follow-up appointments. Plan - Discharge Summary Discharge Rx Participant: No New Discharge Prescriptions: New Aspirin 325 mg PO DAILY #30 tab Amiodarone [Cordarone] 200 mg PO BID 14 Days #27 tab Losartan [Cozaar] 50 mg PO DAILY #30 tab HYDROcodone/APAP 5-325MG [[place] 5-325] 1 each PO Q6HR PRN #12 tab PRN Reason: Pain Clopidogrel [Plavix] 75 mg PO DAILY #30 tab Pantoprazole [Protonix] 40 mg PO AC-BRKFST #30 tab Sennosides-Docusate Sodium [Senokot-S] 2 each PO HS #14 tab Acetaminophen Tab [Tylenol] 1,000 mg PO Q6HR PRN tab PRN Reason: Fever And/ Or Pain Continue Dulaglutide [Trulicity] 3 mg SQ TH Atorvastatin [Lipitor] 80 mg PO HS #90 tab Montelukast [Singulair] 10 mg PO HS Cetirizine HCl [Zyrtec] 10 mg PO DAILY Ascorbic Acid [Vitamin C] 1,000 mg PO DAILY carvediloL [Coreg] 6.25 mg PO BID-W/MEALS #180 tab Furosemide [Lasix] 40 mg PO QAM Cholecalciferol [Vitamin D3 (25 Mcg = 1000 Iu)] 25 mcg PO DAILY Vitamin E (Dl,Tocopheryl Acet) [Vitamin E (100 Iu = 45MG)] 450 mg PO DAILY Turmeric Root Extract [Turmeric] 1,950 mg PO DAILY Lutein 40 mg PO DAILY Discontinued Aspirin 81 mg PO QAM Losartan [Cozaar] 100 mg PO QAM Ticagrelor [Brilinta] 90 mg PO BID Discharge Medication List Dulaglutide [Trulicity] 3 mg SQ TH 11/24/21 [History] Atorvastatin [Lipitor] 80 mg PO HS #90 tab 11/27/21 [Rx] carvediloL [Coreg] 6.25 mg PO BID-W/MEALS #180 tab 11/27/21 [Rx] Furosemide [Lasix] 40 mg PO QAM 05/23/23 [History] Montelukast [Singulair] 10 mg PO HS 05/23/23 [History] Ascorbic Acid [Vitamin C] 1,000 mg PO DAILY 03/01/24 [History] Cetirizine HCl [Zyrtec] 10 mg PO DAILY 03/01/24 [History] Cholecalciferol [Vitamin D3 (25 Mcg = 1000 Iu)] 25 mcg PO DAILY 03/01/24 [History] Vitamin E (Dl,Tocopheryl Acet) [Vitamin E (100 Iu = 45MG)] 450 mg PO DAILY 03/01/24 [History] Lutein 40 mg PO DAILY 03/21/24 [History] Turmeric Root Extract [Turmeric] 1,950 mg PO DAILY 03/21/24 [History] Acetaminophen Tab [Tylenol] 1,000 mg PO Q6HR PRN tab 04/03/24 [Rx] Amiodarone [Cordarone] 200 mg PO BID 14 Days #27 tab 04/03/24 [Rx] Aspirin 325 mg PO DAILY #30 tab 04/03/24 [Rx] Clopidogrel [Plavix] 75 mg PO DAILY #30 tab 04/03/24 [Rx] HYDROcodone/APAP 5-325MG [[place] 5-325] 1 each PO Q6HR PRN #12 tab 04/03/24 [Rx] Losartan [Cozaar] 50 mg PO DAILY #30 tab 04/03/24 [Rx] Pantoprazole [Protonix] 40 mg PO AC-BRKFST #30 tab 04/03/24 [Rx] Sennosides-Docusate Sodium [Senokot-S] 2 each PO HS #14 tab 04/03/24 [Rx] Follow up Appointment(s)/Referral(s): [facility],Cardiac [NON-STAFF] - 4 Weeks Shine Mims MD [STAFF PHYSICIAN] - 04/24/24 9:30 am (The appointment for April 11, [address] Mims is out of town.) Joshua Carter MD [Primary Care Provider] - 04/10/24 1:30 pm Forrest Vora MD [STAFF PHYSICIAN] - 04/26/24 2:00 pm Junior Venegas NPC [Nurse Practitioner] - 04/12/24 12:45 pm (Please follow-up at [address] [place] [address], [facility] [place], office number is [phone]) Mik Pruett MD [STAFF PHYSICIAN] - 04/13/24 12:15 pm [facility] Visiting Nurse, [NON-STAFF] - 1-2 Days Ambulatory/Diagnostic Orders: Complete Blood Count w/diff [LAB.AMB] Time Frame: 04/06/24, Facility: [facility], Location: [facility] Comprehensive Metabolic Panel [LAB.AMB] Time Frame: 04/06/24, Facility: [facility], Location: [facility] Activity/Diet/Wound Care/Special Instructions: DISCHARGE INSTRUCTIONS: 1. No driving for 4 weeks, or until physician gives their ok. 2. The patient should sleep in their own bed, no medical bed needed. 3. Stairs are not an issue. If the bedroom is upstairs, it is advised that the patient go up at night and down in the morning for the first week. Go slowly, using handrail and take 1 step at a time. 4. LAURENCE hose are to be worn for 30 days post surgery or until physician discontinues. 5. Heart hugger is to be worn 100% of the time until physician discontinues.(except when showering) 6. No lifting, pushing, or pulling more than 10 pounds for 12 weeks. The physician will advise of any restriction changes. 7. The patient is expected to continue the prescribed walking program. 8. Continue pain control per as needed orders. 9. Continue with incentive spirometry and splinting/heart hugger until otherwise directed by the physician. 10. Must shower daily using liquid antibacterial soap 11. Routine sternal incision care. No powders, lotions, ointments on incisions. No dressings are necessary on incisions unless they are draining. Dermabond tape is to remain on sternal incision until surgeon follow-up. 12. Please call surgeon/HAND EDGER for temp greater than 101 F or purulent drainage from incisions. 13. You should weigh yourself daily, record and bring log with you to follow up appointments. 14. All prescriptions given by surgeon for 30 days. Refills need to be filled through centerless grinder/primary care physician. 15. A Red armband has been placed on the patient. It should be worn for 30 days post discharge from surgery and will be removed by the cardiac surgeons. If an ER visit is necessary, please make sure the number on the Red armband is called before going to ER. 16. You have been referred to and are expected to begin Cardiac Rehab in approximately 4-6 weeks. 17. Quitting smoking is the most important step you can take to improve your health. For additional information and assistance to quit smoking, please call the [place] tobacco quit line (2-674-VPDR-NOW/ ) or online: [email or web address] HOME HEALTH SERVICES TO PROVIDE: RN SKILLED HOME CARE SERVICES FOR POST-OP SURGICAL PATIENTS WITH THE FOLLOWING: Coronary Artery Bypass Surgery (CABG), Mitral Valve Replacement/Repair ( MVR), Aortic Valve Replacement/Repair (AVR) RN TO CONTINUE EDUCATION FROM ``ROAD TO A HEALTH HEART PATIENT EDUCATION MANUAL (GIVEN TO PATIENT IN THE HOSPITAL) MEDICATION RECONCILIATION WITH EDUCATION NEEDED ON FIRST HOME VISIT EMPHASIZE IMPORTANCE OF WEARING BREAST SUPPORT/HEART HUGGER ENCOURAGE USE OF INCENTIVE SPIROMETER 10 X EVERY HOUR WHILE AWAKE ENCOURAGE UTILIZATION OF LOWER EXTREMITY COMPRESSION STOCKINGS/LAURENCE HOSE and ELEVATE LEGS ABOVE LEVEL OF HEART WHILE AT REST. ENCOURAGE AMBULATION 3-5x/day INCREASING TOLERATES, WHILE AVOIDING EXTREMES IN TEMPERATURE FREQUENCY: RN TO OPEN THE PATIENT WITHIN 24 HOURS OF DISCHARGE FROM THE HOSPITAL WITH TELEHEALTH INSTALLED AT [facility], RN TO VISIT 2-3 X A WEEK FOR 4 WEEKS ESTABLISHED BY PATIENT NEEDS. LABORATORY: CBC, CMP TO BE DRAWN ON THE THIRD DAY HOME, (RAN STAT) FAX RESULTS TO [phone]. TELEHEALTH PARAMETERS: WEIGHT: NOTIFY MD OF WEIGHT GAIN OF 2 LBS IN 24 HOURS OR 5 LBS IN ONE WEEK HR: NOTIFY MD OF HR <55 BPM OR HR>100 BPM BP: NOTIFY MD IF BP <90/55 OR BP>140/100 O2 SAT: NOTIFY MD IF PO2<93% ON ROOM AIR SEND TELEHEALTH REPORT TO PATIENT CARE TECHNICIAN INSTRUCTOR AND CARDIOVASCULAR SURGEON THE FIRST WEEK OF CARE AND THEN BI-WEEKLY. PLEASE ADDITIONALLY COMMUNICATE ANY ABNORMALS AND NEW FINDINGS TO THE SURGEONS OFFICE. Discharge Disposition: HOME WITH HOME HEALTH SERVICES
[2024-04-03 12:45] VITALS: BP 128/71; PULSE 69; RESP 18; TEMP 98
--- NOTE | 2024-04-03 13:04 | P.PN ---
Subjective HISTORY OF PRESENT ILLNESS: The patient is a 69-year-old male who was admitted today and underwent aortic valve replacement. He is intubated and sedated. He is followed on a regular basis with Dr. Mims and underwent cardiac catheterization on 06 March that revealed patent stents of the RCA and left circumflex. During the same admission he underwent a GAMA that showed a mean gradient 53 mmHg with a peak of 88 with normal ventricle systolic function and tricuspid aortic valve. He underwent a placement of a 27 mm Inspiris Resilia bovine pericardial valve with occlusion of the left atrial appendage. He is in sinus mechanism on no vasop ressors, hemodynamically stable. Postsurgical intervention is mean gradient was 9 mmHg. His urine output is good. His coronaries factors are positive for hypertension, diabetes, hyperlipidemia March 31: The patient is feeling well, sitting up in the chair, extubated. Hemodynamically stable. He has some soreness in the chest but no dizziness or palpitation. He has no nausea or vomiting. He is tolerating p.o. He is using his incentive spirometry. April 01: The patient is doing well this morning, he has mild chest soreness and throat discomfort. He continues to be in sinus mechanism, ambulating. His blood pressure is stable and he is on no vasopressors. He denies any nausea or vomiting. His chest x-ray shows no significant changes. April 02: Patient is out of bed in chair. He is having pain issues and requiring frequent pain medications. He does feel better overall. He has a decreased appetite and has not had a bowel movement, is passing gas. He does have 12+ edema lower extremities. No chest pain or pressure. April 03, 2024 Patient examined this morning at the bedside. Patient is sitting up in the chair. Patient currently denies chest pain or pressure. He denies shortness of breath. He received a dose of IV Lasix this morning. He reports improvement in his lower extremity edema. Plan is for discharge home today. PHYSICAL EXAM: VITAL SIGNS: Reviewed. GENERAL: Well-developed in no acute distress. NECK: Supple. No JVD or thyromegaly LUNGS: Respirations even and unlabored. Lungs essentially clear to auscultation bilaterally. HEART: Regular rate and rhythm. S1 and S2 heard. Systolic murmur noted. EXTREMITIES: Normal range of motion. No clubbing or cyanosis. Peripheral pulses intact. 1+ bilateral lower extremity edema ASSESSMENT: Severe aortic stenosis, status post bioprosthetic aortic valve replacement Coronary artery disease with previous PCI of RCA and circumflex Hypertension Hyperlipidemia Diabetes Former nicotine dependence, patient quit smoking in 2017 PLAN: Continue postoperative management per CT surgery Increase activity as tolerated Encourage use of incentive spirometer Continue telemetry monitoring Continue current cardiac medications Add Lasix 40 mg p.o. daily Patient is stable for discharge home today from a cardiac standpoint Nurse practitioner note has been reviewed by physician. Signing provider agrees with the documented findings, assessment, and plan of care documented by [employer] PLANK WORKMAN as a scribe. Objective - Vital Signs Vital signs: Vital Signs Temp 97.6 F 04/03/24 07:28 Pulse 96 04/03/24 07:28 Resp 17 04/03/24 07:28 BP 125/68 04/03/24 07:28 Pulse Ox 96 04/03/24 07:28 FiO2 60 03/31/24 03:54 Intake & Output 04/02/24 04/03/24 04/03/24 18:59 06:59 18:59 Intake Total 240 Output Total 100 Balance 140 Weight 146.2 kg Intake: Oral 240 Output: Urine 100 Other: Voiding Method Toilet Toilet Urinal Urinal # Voids 1 2 # Bowel Movements 1 3 ABP, PAP, CO, CI - Last Documented Arterial Blood Pressure 191/58 Pulmonary Artery Pressure 41/16 Cardiac Output 6.5 Cardiac Index 2.5 - Labs CBC & Chem 7: 04/03/24 08:53 04/03/24 07:59 Labs: Abnormal Lab Results - Last 24 Hours (Table) 04/02/24 04/02/24 04/02/24 Range/Units 12:17 16:56 19:52 RBC (4.30-5.90) m/uL Hgb (13.0-17.5) gm/dL Hct (39.0-53.0) % Lymphocytes # (1.0-4.8) k/uL Sodium (137-145) mmol/L Carbon Dioxide (22-30) mmol/L BUN (9-20) mg/dL Glucose (74-99) mg/dL POC Glucose (mg/dL) 161 H 151 H 154 H (70-110) mg/dL Calcium (8.4-10.2) mg/dL 04/03/24 04/03/24 04/03/24 Range/Units 06:11 07:59 08:53 RBC 3.46 L (4.30-5.90) m/uL Hgb 10.5 L (13.0-17.5) gm/dL Hct 31.9 L (39.0-53.0) % Lymphocytes # 0.9 L (1.0-4.8) k/uL Sodium 133 L (137-145) mmol/L Carbon Dioxide 21 L (22-30) mmol/L BUN 26 H (9-20) mg/dL Glucose 124 H (74-99) mg/dL POC Glucose (mg/dL) 128 H (70-110) mg/dL Calcium 8.3 L (8.4-10.2) mg/dL
--- NOTE | 2024-04-03 15:34 | P.PN ---
Subjective Progress Note Date: 04/03/24 69-year-old male patient, currently being seen in the intensive care and following an aortic valve replacement surgery. The patient underwent an AVR postop, the patient was brought into the intensive care unit for further evaluation and treatment. The patient also is known to have coronary artery disease. The patient underwent cardiac catheterization on 03/06/2024 and the patient had patent stents to RCA and circumflex. Previous GAMA showed a preserved LV function with severe aortic valve stenosis and based on that the patient underwent a surgical valve replacement. Surgery was done and estimated blood loss was 500 cc. At this point in time, the patient is intubated on the mechanical ventilator. The patient is on propofol which is running at 25 mcg/kg/min. The patient is getting a normal sinus rhythm at a rate of 65. Intraoperatively, the patient was atrially paced and currently he has intrinsic rhythm. He is hypertensive on Cleviprex drip for blood pressure control which is running at 8 mg an hour. Most recent cardiac output is 6.2 with an index of 2.4. PA pressures of 37/70. CVP is 10. The patient remains on assist-control mode of mechanical vent at rate of 12, tidal volume of 550, FiO2 of 100% with a PEEP of 10. The blood gas showed a pH of 7.28 with a pCO2 of 53 and pO2 of 115 and a chest x-ray showed adequate expansion of both lungs. No evidence of any pneumothorax. The patient has a left pleural mediastinal chest tube in place. Orotracheal tube is in a good location. No consolidation. No airspace disease. Ludlow-Karen catheter is in a good location. Output from the chest tubes has been 100 from the left pleural and 70 from the mediastinal chest tube since arrival from the operating room. Excellent urine output for now. Remains on amiodarone 0.5 mg/min as maintenance. Afebrile. On 03/31/2024, the patient is being seen for a follow-up. The patient is postop day #1 following a aortic valve replacement. Patient sitting up in a chair and the patient is calm and comfortable. Hemodynamically stable. The patient was weaned off the mechanical ventilator and the patient was extubated without any major difficulties and the patient is currently using incentive spirometer. He is currently on 2 L of O2 nasal cannula. Cardiac output is at 7.5 with an index of 2.9. PA pressures are 42/18. The CVP is currently at 13. Remains on Cleviprex drip which is running at 5 mg an hour. Remains on amiodarone drip at 0.5 mg/min and the patient is also on insulin drip at 4.5 units an hour. Chest tubes are also in place. Output from the chest has been noted and the mediastinal chest tube produced 300 cc over the past 8 hours) over the past 24 hours. Left lower chest tube was produced 190 cc over the past 24 hours. As for the blood work, the patient's WBC count is at 16.5 anemia of 12.7 and platelet count of 159. Electrolytes are normal. BUN is 40 with a creatinine of 0.7. Chest x-ray was noted from today and it shows no acute abnormalities. Mild pleural effusion. No evidence of a pneumothorax. Chest tubes are in place. The tube is not removed. No other significant events overnight. Mentation is adequate and the patient is alert and awake and communicating. On 04/01/2024, the patient is being seen for a follow-up. The patient is doing well with no specific complaints. Sitting up in a chair. Is currently on 60 days of oxygen by nasal cannula. The patient is hemodynamically stable and Ludlow-Karen catheters were removed. The patient is currently off Cleviprex drip and is on a combination of Coreg 6.25 mg twice daily and Cozaar 50 mg p.o. daily for blood pressure control. The patient remains on amiodarone and he remains in normal sinus rhythm. The patient had a mediastinal and the left lower chest tube and output is minimal at this point in time. Using incentive spirometer, following approximately 8000. Remains on insulin drip at 3 units an hour. The blood sugars under adequate control. The white cell count 15.7, hemoglobin 11.6 and a platelet count is at 135. BUN is 22 with a creatinine of 1.1 and sodium levels at 131 with a potassium level of 4.1 and a serum bicarb is at 21. No other significant events overnight. Surgical wound site is dry clean and intact. Chest x-ray shows no evidence of any pneumothorax. The patient is seen today April 02, 2024 in follow-up on the selective care unit. He is currently sitting up in a chair at the bedside. Awake and alert in no acute distress. Denies any worsening shortness of breath, cough or congestion. Operative day #3. Chest x-ray reveals basilar linear atelectasis with tiny effusion. The patient continues to work with the incentive spirometer . Maintaining good O2 saturations in the 90s on room air. White count 12.3. Hemoglobin 11.4. Platelets 154. Sodium 134. Potassium 4.3. Bicarb 19. BUN 26. Creatinine 0.91. Glucose 133. He remains on bronchodilators. Heparin for DVT prophylaxis. The patient is seen today April 03, 2024 in follow-up on the selective care unit. He is awake and alert in no acute distress. Postoperative day #4. He denies any worsening shortness of breath, cough or congestion. He is maintaining good O2 saturation in the 90s on room air. Chest x-ray reveals strandy basilar parenchymal density. No evidence of pneumothorax. White count 9.3. Hemoglobin 10.5. Platelets 194. Sodium 133. Potassium 4.6. Bicarb 21. BUN 26. Creatinine 0.80. Glucose 124. He is continued on Singulair. Remains on oral diuretics. Continued on amiodarone. Objective - Vital Signs Vital signs: Vital Signs Temp 98 F 04/03/24 12:00 Pulse 69 04/03/24 12:00 Resp 18 04/03/24 12:00 BP 128/71 04/03/24 12:00 Pulse Ox 97 04/03/24 12:00 FiO2 60 03/31/24 03:54 Intake & Output 04/02/24 04/03/24 04/03/24 18:59 06:59 18:59 Intake Total 240 Output Total 100 Balance 140 Weight 146.2 kg Intake: Oral 240 Output: Urine 100 Other: Voiding Method Toilet Toilet Toilet Urinal Urinal Urinal # Voids 1 2 1 # Bowel Movements 1 3 ABP, PAP, CO, CI - Last Documented Arterial Blood Pressure 191/58 Pulmonary Artery Pressure 41/16 Cardiac Output 6.5 Cardiac Index 2.5 - Exam GENERAL EXAM: Alert, active, very pleasant 69-year-old male, up in a chair, on room air, comfortable in no apparent distress. HEAD: Normocephalic. EYES: Normal reaction of pupils, equal size. NOSE: Clear with pink turbinates. THROAT: No erythema or exudates. NECK: No masses, no JVD. CHEST: No chest wall deformity. Heart hugger in place. LUNGS: Equal air entry with no crackles, wheeze, rhonchi or dullness. CVS: S1 and S2 normal with no audible murmur, regular rhythm. ABDOMEN: No hepatosplenomegaly, normal bowel sounds, no guarding or rigidity. SPINE: No scoliosis or deformity SKIN: No rashes CENTRAL NERVOUS SYSTEM: No focal deficits, tone is normal in all 4 extremities. EXTREMITIES: There is no peripheral edema. No clubbing, no cyanosis. Peripheral pulses are intact. - Labs CBC & Chem 7: 04/03/24 08:53 04/03/24 07:59 Labs: Abnormal Lab Results - Last 24 Hours (Table) 04/02/24 04/02/24 04/03/24 Range/Units 16:56 19:52 06:11 RBC (4.30-5.90) m/uL Hgb (13.0-17.5) gm/dL Hct (39.0-53.0) % Lymphocytes # (1.0-4.8) k/uL Sodium (137-145) mmol/L Carbon Dioxide (22-30) mmol/L BUN (9-20) mg/dL Glucose (74-99) mg/dL POC Glucose (mg/dL) 151 H 154 H 128 H (70-110) mg/dL Calcium (8.4-10.2) mg/dL 04/03/24 04/03/24 04/03/24 Range/Units 07:59 08:53 12:06 RBC 3.46 L (4.30-5.90) m/uL Hgb 10.5 L (13.0-17.5) gm/dL Hct 31.9 L (39.0-53.0) % Lymphocytes # 0.9 L (1.0-4.8) k/uL Sodium 133 L (137-145) mmol/L Carbon Dioxide 21 L (22-30) mmol/L BUN 26 H (9-20) mg/dL Glucose 124 H (74-99) mg/dL POC Glucose (mg/dL) 126 H (70-110) mg/dL Calcium 8.3 L (8.4-10.2) mg/dL Assessment and Plan Assessment: Severe aortic stenosis and the patient is status post aortic valve replacement, postop day #3. The patient remains on amiodarone drip for A-fib prophylaxis. Cardiac rhythm is sinus. Postthoracotomy, the patient has been extubated. Currently stable and on room air Hypertension with postop elevation in the blood pressure, off Cleviprex and the patient is currently on Cozaar Coronary artery disease with previous non-ST segment elevation myocardial infarction. Cardiac catheterization from 03/06/2024 showed patent coronary stent to the circumflex and the RCA Hypertension Hyperlipidemia Peripheral vascular disease Obesity Former smoker Plan The patient was seen and evaluated Chest x-ray, labs and medications reviewed Currently stable and on room air Working well with the incentive spirometer Planning for discharge to home today Follow-up in our office in 1 week I have personally seen and examined the patient, performed the documentation and the assessment and plan as written. Number of minutes spent on the visit: 10.
[2024-04-04] MEDS ORDERED: FUROSEMIDE 40 MG TAB PO SCH (09:00)
[2024-04-06 07:00] LABS: Glucose,Whole Blood 134 mg/dL (70-110)
== END 2024-04-03 13:36 | disposition home health service (06) | DRG 220 ==
LOC: 2ORMAIN 03-30 05:32 → 2SICU 03-30 11:14 → 3SCARD 04-01 16:23
PROVIDERS: ADMIT Thoracic Surgery (Cardiothoracic Vascular Surgery); ATTEND Thoracic Surgery (Cardiothoracic Vascular Surgery)
PROC: 02HP32Z Insertion of Monitoring Device into Pulmonary Trunk, Percutaneous Approach (ICD-10-PCS; 2024-03-30)
PROC: 02RF08Z Replacement of Aortic Valve with Zooplastic Tissue, Open Approach (ICD-10-PCS; principal; 2024-03-30 08:00)
PROC: 02L70CK Occlusion of Left Atrial Appendage with Extraluminal Device, Open Approach (ICD-10-PCS; principal; 2024-03-30 08:00)
PROC: 5A1221Z Performance of Cardiac Output, Continuous (ICD-10-PCS; principal; 2024-03-30 08:00)
PROC: B24BZZ4 Ultrasonography of Heart with Aorta, Transesophageal (ICD-10-PCS; 2024-03-30 08:00)
PROC: 4A133J1 Monitoring of Arterial Pulse, Peripheral, Percutaneous Approach (ICD-10-PCS; 2024-03-30 08:00)
PROC: 03HY32Z Insertion of Monitoring Device into Upper Artery, Percutaneous Approach (ICD-10-PCS; 2024-03-30 08:00)
PROC: 4A133B1 Monitoring of Arterial Pressure, Peripheral, Percutaneous Approach (ICD-10-PCS; 2024-03-30 08:00)
DX: I08.0 Rheumatic disorders of both mitral and aortic valves (principal); D62 Acute posthemorrhagic anemia; Z68.41 Body mass index [BMI] 40.0-44.9, adult; J98.11 Atelectasis; E11.51 Type 2 diabetes mellitus with diabetic peripheral angiopathy without gangrene; E66.9 Obesity, unspecified; E78.5 Hyperlipidemia, unspecified; G47.30 Sleep apnea, unspecified; I11.9 Hypertensive heart disease without heart failure; I25.10 Atherosclerotic heart disease of native coronary artery without angina pectoris; I25.2 Old myocardial infarction; K59.00 Constipation, unspecified; Z79.02 Long term (current) use of antithrombotics/antiplatelets; Z79.82 Long term (current) use of aspirin; Z79.899 Other long term (current) drug therapy; Z87.891 Personal history of nicotine dependence; Z95.5 Presence of coronary angioplasty implant and graft; Z96.643 Presence of artificial hip joint, bilateral
CPT/HCPCS: 71045; 71046; 80048; 80053; 82330; 82805; 83735; 85025; 85610; 85730; 86891; 88305; 88311; 94002; 94640; 94660